=== PATIENT | female | born 1940 | race Caucasian/White ===

== ENCOUNTER 2019-06-21 20:42 | Inpatient (IN) ==
[2019-06-21] MEDS ORDERED: ACETAMINOPHEN 1,000 MG/100 ML VIAL IV STA (21:10)
[2019-06-21] MEDS ORDERED: ALBUT/IPRATROP 3MG/0.5MG NEB 3 ML VIAL NEB ONE (21:10)
[2019-06-21] MEDS ORDERED: SODIUM CHLORIDE 0.9% 1000ML 1,000 ML IV ONE ×2 (21:10→23:54)
[2019-06-21] MEDS ORDERED: methylPREDNISolone 125 MG/2 ML VIAL IV STA (21:10)
[2019-06-21 21:18] LABS: Hematocrit (blood only) 38.3 % (37-47); Hemoglobin 13.1 g/dL (12.0-16.0); Mean Corpuscular Hemoglobin 32.6 pg (25-34); Mean Corpuscular Hgb Conc 34.2 g/dL (32-36); Mean Corpuscular Volume 95.3 fL (80-100); Mean Platelet Volume 12.8 fL (7.4-10.4); Platelet Count 153 K/uL (130-400); RDW Standard Deviation 52.8 fL (36.4-46.3); Red Blood Count 4.02 M/uL (4.2-5.4); White Blood Count 26.61 K/uL (4.8-10.8)
[2019-06-21 21:32] LABS: INR 1.2 (0.9-1.1); Partial Thromboplastin Ratio 1.3; Partial Thromboplastin Time 34.3 Seconds (21.0-31.0); Prothrombin Time 11.9 Seconds (9.0-12.0)
[2019-06-21 21:35] LABS: Appearance Urine Cloudy (Clear); Bilirubin Urine Negative (Negative); Blood Urine 3+ (Negative); Color Urine Yellow; Glucose Urine UA Trace (Negative); Ketones Urine Trace (Negative); Leukocyte Esterase Urine Negative (Negative); Nitrite Urine Negative (Negative); Protein Urine 3+ (Negative); Specific Gravity Urine >= 1.030 (1.000-1.030); Urobilinogen Urine Negative (Negative); pH Urine 5.5 (4.5-7.5)
--- NOTE | 2019-06-21 21:41 | XRay Report ---
XR chest 1V portable CLINICAL HISTORY: Sepsis dyspnea COMPARISON STUDY: 12/29/2017 FINDINGS: Mild emphysematous change. No focal infiltrate. Diaphragms are smooth. IMPRESSION: No acute process. The above report was generated using voice recognition software. It may contain grammatical, syntax or spelling errors. Electronically signed by: Orion Holman M.D. 06/21/2019 9:40 PM
[2019-06-21 21:42] LABS: Base Excess VBG 0.6 mEq/L; HCO3 VBG 26 mmol/L; PCO2 VBG 42 mmHg (38-50); PO2 VBG 28 mmHg
[2019-06-21 21:43] LABS: Bacteria Urine 1+ (Negative); Hyaline Casts Urine 0-5 /lpf (0-5); RBC Urine 0-4 /hpf (0-4)
[2019-06-21 21:44] LABS: Oxygen Saturation VBG < 60.0 %
[2019-06-21 21:45] LABS: Alanine Aminotransferase 442 U/L (12-78); Albumin Level 3.2 gm/dl (3.4-5.0); Aspartate Aminotransferase 430 U/L (15-37); BUN Creatinine Ratio 28.3 (10-20); Blood Urea Nitrogen 35 mg/dl (7-18); Calcium 9.3 mg/dl (8.5-10.1); Carbon Dioxide 24 mmol/L (21-32); Chloride 99 mmol/L (98-107); Creatinine Clr Calc Pharmacy 28.6 ml/min; Est GFR (African American) 47.5; Glucose 158 mg/dl (70-99); Magnesium 2.3 mg/dl (1.8-2.4); Potassium 4.4 mmol/L (3.5-5.1); Sodium 133 mmol/L (136-145)
[2019-06-21 21:51] LABS: Albumin Globulin Ratio 0.7 (0.9-2); Alkaline Phosphatase 107 U/L (45-117); Bilirubin,Total 0.8 mg/dl (0.2-1); Globulin 4.6 gm/dl (2.5-4.0); NT Pro B Type Natriuretic Pept 4796 pg/ml (0-1800); Phosphorus 1.7 mg/dl (2.5-4.9); Total Protein 7.8 gm/dl (6.4-8.2); Troponin I < 0.015 ng/ml (0-0.045)
[2019-06-21] MEDS ORDERED: PIPERACILL/TAZOBAC CONSULT ACTIVE PRN (22:02)
[2019-06-21] MEDS ORDERED: VANCOMYCIN CONSULT ACTIVE PRN (22:02)
[2019-06-21] MEDS ORDERED: PIPERACILLIN/TAZOBACTAM 4.5 GM/120 ML BAG IV ONE (22:02)
[2019-06-21] MEDS ORDERED: VANCOMYCIN HCL 1,250 MG in SODIUM CHLORIDE 0.9% 500 ML IV ONE (22:02)
[2019-06-21] MEDS ORDERED: POTASSIUM PHOS 3 MMOL/1 ML INFUSION IV STA (22:05)
[2019-06-21 22:13] LABS: Basophils # (auto) 0.02 K/uL (0-0.2); Basophils % (auto) 0.1 %; Echinocytes 1+; Eosinophils # (auto) 0.01 K/uL (0-0.5); Immature Granulocytes # (auto) 0.49 K/uL (0.00-0.02); Immature Granulocytes % (auto) 1.8 %; Lymphocytes # (auto) 0.52 K/uL (1.2-3.4); Monocytes # (auto) 2.41 K/uL (0.11-0.59); Monocytes % (auto) 9.1 %; Neutrophils # (auto) 23.16 K/uL (1.4-6.5)
[2019-06-21] MEDS ORDERED: POTASSIUM PHOSPHATE 9 MMOL in SODIUM CHLORIDE 0.9% 250 ML IV ONE (22:30)
[2019-06-21] MEDS ORDERED: OPTIRAY 320 125ml IV PRN (23:01)
[2019-06-21 23:08] LABS: Influenza A virus by PCR Neg for Influ A (Neg); Influenza B virus by PCR Neg for Influ B (Neg)
[2019-06-21] MEDS ORDERED: METOPROLOL TARTRATE 1 MG/ML VIAL IV STA (23:33)
--- NOTE | 2019-06-22 | Emergency Department Note ---
Entered by Mattie Myafield acting as a scribe for History of Present Illness General Chief complaint: Weakness Stated complaint: WEAKNESS Time Seen by Provider: 06/21/19 20:51 History of Present Illness Provider complaint: weakness Onset (ago): day(s) 2 Pain Consistency: + other (episode) Quality: + other (weakness) Relieved By: + none Associated symptoms: + denies other symptoms (trauma, vomiting, tobacco use), + fever/chills, + loss of appetite and + other (nausea, dizziness, took a nap which is abnormal for her, history of asthma) The patient is an 79 year old female who presents to the ED with complaints of an episode of weakness that started 2 days ago. The patient states that she has a fever, nausea and dizziness. The patient states that she has had a loss of appetite which is abnormal for her. The patient states that nothing is helping to relieve her symptoms. Per significant other, the patient took a nap today which is extremely unusual for her. The patient states that she has a history of asthma. The patient denies trauma, vomiting and tobacco use. Home Medications Home Medications Medication Instructions Recorded Confirmed Type albuterol sulfate [Ventolin HFA] 2 puff INHALATION Q4H PRN 06/21/19 06/21/19 History aspirin 81 mg PO DAILY 06/21/19 06/21/19 History atorvastatin 40 mg PO QAM 06/21/19 06/21/19 History calcium carbonate-vitamin D3 1 tab PO DAILY 06/21/19 06/21/19 History [Calcium 600 + D(3)] cholecalciferol (vitamin D3) 2,000 unit PO DAILY 06/21/19 06/21/19 History [Vitamin D3] diltiazem HCl 120 mg PO QAM 06/21/19 06/21/19 History fluticasone propion-salmeterol 1 inh INHALATION BID 06/21/19 06/21/19 History [Advair Diskus] fluticasone propionate [Flonase 2 spray INTRANASAL DAILY 06/21/19 06/21/19 History Allergy Relief] ipratropium-albuterol [Combivent 1 puff INHALATION QID 06/21/19 06/21/19 History Respimat] metoprolol succinate 50 mg PO DAILY 06/21/19 06/21/19 History montelukast 10 mg PO QAM 06/21/19 06/21/19 History nitroglycerin [Nitrostat] 0.4 mg SUBLINGUAL DIRECTED PRN 06/21/19 06/21/19 History tramadol 100 mg PO Q8H PRN 06/21/19 06/21/19 History Allergies Allergy/AdvReac Type Severity Reaction Status Date / Time No Known Allergies Allergy Verified 06/21/19 22:20 Past Med/Surg History Medical History Asthma Chest pain NSTEMI (non-ST elevated myocardial infarction) Surgical History Hx of heart artery stent Family History Other Family history non-contributory Social History Feels Safe at Home: Yes Smoking Status: Former smoker Review of Systems See HPI for pertinent positives & negatives. and A total of 10 systems reviewed and were otherwise negative Physical Exam Vital Signs Vital Signs - 24 hr 06/21/19 20:47 06/21/19 20:49 06/21/19 21:09 Temperature 38.9 C H Temperature Source Oral Pulse Rate 108 H 108 H Pulse Rate [Right Finger] Pulse Rate from SpO2 Sensor 108 H Respiratory Rate 26 H 30 H Respiratory Effort / Characteristics Non-Labored Spontaneous Respiratory Depth Normal Respiratory Pattern Regular Blood Pressure 129/79 129/79 Blood Pressure Mean 95 89 Pulse Oximetry 92 96 84 L Oxygen Delivery Method Room Air Room Air Nasal Cannula Oxygen Flow Rate 0 Sepsis Recent Fever Within 48 Hours Yes Sepsis New/Unexplained Change in Mental Status No Sepsis Action Taken by Nursing Physician Notified Oxygen Flow Rate - Titration 2 Fraction of Inspired Oxygen - Titration 95 06/21/19 21:17 06/21/19 21:25 06/21/19 21:48 Temperature Temperature Source Pulse Rate 107 H Pulse Rate [Right Finger] 102 H Pulse Rate from SpO2 Sensor 107 H Respiratory Rate 19 24 Respiratory Effort / Characteristics Non-Labored Spontaneous Respiratory Depth Respiratory Pattern Blood Pressure 122/81 Blood Pressure Mean 91 Pulse Oximetry 95 96 98 Oxygen Delivery Method Nasal Cannula Nasal Cannula Nebulizer Oxygen Flow Rate 2 2 Sepsis Recent Fever Within 48 Hours Sepsis New/Unexplained Change in Mental Status Sepsis Action Taken by Nursing Oxygen Flow Rate - Titration Fraction of Inspired Oxygen - Titration 06/21/19 22:00 06/21/19 22:30 06/21/19 23:08 Temperature Temperature Source Pulse Rate 106 H 114 H 116 H Pulse Rate [Right Finger] Pulse Rate from SpO2 Sensor 107 H 114 H 115 H Respiratory Rate 32 H 35 H 34 H Respiratory Effort / Characteristics Respiratory Depth Respiratory Pattern Blood Pressure 121/74 125/61 101/54 L Blood Pressure Mean 87 76 79 Pulse Oximetry 99 98 97 Oxygen Delivery Method Nebulizer Nebulizer Nasal Cannula Oxygen Flow Rate 2 Sepsis Recent Fever Within 48 Hours Sepsis New/Unexplained Change in Mental Status Sepsis Action Taken by Nursing Oxygen Flow Rate - Titration Fraction of Inspired Oxygen - Titration 06/21/19 23:25 06/21/19 23:30 06/21/19 23:55 Temperature 37.1 C Temperature Source Oral Pulse Rate 140 H 144 H Pulse Rate [Right Finger] 141 H Pulse Rate from SpO2 Sensor 140 H Respiratory Rate 30 H 18 Respiratory Effort / Characteristics Respiratory Depth Respiratory Pattern Blood Pressure 105/62 105/62 Blood Pressure Mean 74 Pulse Oximetry 97 97 Oxygen Delivery Method Nasal Cannula Nasal Cannula Oxygen Flow Rate 3 3 Sepsis Recent Fever Within 48 Hours Sepsis New/Unexplained Change in Mental Status Sepsis Action Taken by Nursing Oxygen Flow Rate - Titration Fraction of Inspired Oxygen - Titration 06/22/19 00:00 06/22/19 00:21 Temperature Temperature Source Pulse Rate 143 H 128 H Pulse Rate [Right Finger] Pulse Rate from SpO2 Sensor 144 H Respiratory Rate 25 H Respiratory Effort / Characteristics Respiratory Depth Respiratory Pattern Blood Pressure 88/58 L Blood Pressure Mean 66 Pulse Oximetry 96 Oxygen Delivery Method Nasal Cannula Oxygen Flow Rate 3 Sepsis Recent Fever Within 48 Hours Sepsis New/Unexplained Change in Mental Status Sepsis Action Taken by Nursing Oxygen Flow Rate - Titration Fraction of Inspired Oxygen - Titration GENERAL: Awake, alert, ill-appearing, in no distress HENT: Normocephalic, atraumatic. Oropharynx with mucous membranes dry and cracked. EYES: Normal conjunctiva. Sclera non-icteric. NECK: Supple. No nuchal rigidity. FROM. No JVD. RESPIRATORY: Diffuse wheezes throughout. CARDIAC: Tachycardic rate, normal rhythm. Extremities warm and well perfused. Pulses equal. ABDOMEN: Soft, non-distended. No tenderness to palpation. No rebound or guarding. No masses. RECTAL: Deferred. MUSCULOSKELETAL: Chest examination reveals no tenderness. The back is symmetrical on inspection without obvious abnormality. There is no CVA tenderness to palpation. No joint edema. LOWER EXTREMITIES: Calves are equal size bilaterally and non-tender. No edema. No discoloration. NEURO: Normal sensorium. No sensory or motor deficits noted. SKIN: No rash or jaundice noted. Course Course 2106: Past medical records reviewed. The patient was evaluated in room B10. A complete history and physical exam was performed. 2239: I reevaluated the patient and she is feeling better. 2351: I discussed the patient's case with Dr. Jt Velásquez, Hospitalist. He will evaluate the patient for further management. Continuous Cardiac Monitoring: Indication: Sepsis Rhythm: Sinus tachycardia converting to Atrial fibrillation with RVR Rate: 108 to 140 Other: 96% on 3L NC. Consultations Consultation #1: I discussed the patient's case with Dr. Jt Velásquez, Hospitalist. He will evaluate the patient for further management. Time: 23:52 Administered Medications Sodium Chloride (Nss 1000ml) 1,000 mls @ 999 mls/hr IV .Q1H1M ONE Stop: 06/22/19 00:54 Last Admin: 06/22/19 00:04 Dose: 999 mls/hr Documented by: [id number] Sodium Chloride (Nss) 500 mls @ 999 mls/hr IV .Q31M ONE Stop: 06/22/19 00:47 Last Admin: 06/22/19 00:26 Dose: Not Given Documented by: [id number] Ioversol (Optiray 320 125ml) 125 ml IV ONCE PRN PRN Reason: Interaction Checking Stop: 06/25/19 23:00 Last Admin: 06/21/19 23:01 Dose: 118 ml Documented by: [id number] Discontinued Medications Albuterol (Duoneb) 12 ml NEB ONE ONE Stop: 06/21/19 21:11 Last Admin: 06/21/19 21:23 Dose: 12 ml Documented by: [id number] Sodium Chloride (Nss 1000ml) 1,000 mls @ 999 mls/hr IV .Q1H1M ONE Stop: 06/21/19 22:10 Last Infusion: 06/21/19 23:47 Dose: 0 mls/hr Documented by: [id number] Admin: 06/21/19 21:48 Dose: 999 mls/hr Documented by: [id number] Acetaminophen (Ofirmev) 1,000 mg in 100 mls @ 400 mls/hr IV NOW STA Stop: 06/21/19 21:24 Last Infusion: 06/21/19 22:07 Dose: 0 mls/hr Documented by: [id number] Admin: 06/21/19 21:52 Dose: 400 mls/hr Documented by: [id number] Piperacillin Sod/Tazobactam Sod (Zosyn) 4.5 gm in 120 mls @ 240 mls/hr IV NOW ONE Stop: 06/21/19 22:31 Last Infusion: 06/21/19 23:24 Dose: 0 mls/hr Documented by: [id number] Admin: 06/21/19 22:26 Dose: 240 mls/hr Documented by: [id number] Vancomycin HCl 1,250 mg/ (Sodium Chloride) 525 mls @ 200 mls/hr IV NOW ONE Stop: 06/22/19 00:39 Last Admin: 06/21/19 23:24 Dose: 200 mls/hr Documented by: [id number] Potassium Phosphate 9 mmol/ (Sodium Chloride) 253 mls @ 169 mls/hr IV ONE ONE Stop: 06/21/19 23:59 Last Admin: 06/21/19 23:24 Dose: 87 mls/hr Documented by: [id number] Digoxin 250 mcg/ Syringe 10 mls @ 2 mls/min IV ONE ONE Stop: 06/22/19 00:19 Last Admin: 06/22/19 00:21 Dose: 2 mls/min Documented by: [id number] Methylprednisolone (Solumedrol) 125 mg IV NOW STA Stop: 06/21/19 21:11 Last Admin: 06/21/19 21:50 Dose: 125 mg Documented by: [id number] Metoprolol Tartrate (Lopressor) 5 mg IV NOW STA Stop: 06/21/19 23:34 Last Admin: 06/21/19 23:55 Dose: 5 mg Documented by: [id number] Tramadol HCl (Ultram) 25 mg PO NOW STA Stop: 06/22/19 00:13 Last Admin: 06/22/19 00:21 Dose: 25 mg Documented by: [id number] Critical Care Time Critical Care Time: Yes Total Critical Care Time: 105 I have personally spent greater than 105 minutes of critical care time in the direct management of this patient. This includes bedside care, interpretation of diagnostic studies, and testing, discussion with consultants, patient, and family members, and other required patient management activities. This 105 minutes is in excess of all separately billable procedures. Medical Decision Making Differential Diagnosis Differential diagnosis: Etiologies such as viral syndrome, otitis, pharyngitis, pneumonia, influenza, meningitis, urinary tract infection, septic arthritis, soft tissue infectious process, intra-abdominal process, sepsis, bacteremia, as well as others were entertained. Medical Records Attestation: I reviewed the patient's medical records. Home Medications Current Medication List: was personally reviewed by wa Laboratory Data Attestation: I reviewed the patient's lab results. Result diagrams: 06/21/19 20:35 06/21/19 20:35 Lab Results 06/21/19 06/21/19 06/21/19 Range/Units 20:35 20:35 20:35 WBC 26.61 H (4.8-10.8) K/uL RBC 4.02 L (4.2-5.4) M/uL Hgb 13.1 (12.0-16.0) g/dL Hct 38.3 (37-47) % MCV 95.3 (80-100) fL MCH 32.6 (25-34) pg MCHC 34.2 (32-36) g/dL RDW Std Deviation 52.8 H (36.4-46.3) fL RDW Coeff of Gillian 15.0 H (11.5-14.5) % Plt Count 153 (130-400) K/uL MPV 12.8 H (7.4-10.4) fL Immature Gran % (Auto) 1.8 % Neut % (Auto) 87.0 % Lymph % (Auto) 2.0 % [place] % (Auto) 9.1 % Eos % (Auto) 0.0 % Baso % (Auto) 0.1 % Immature Gran # (Auto) 0.49 H (0.00-0.02) K/uL Neut # (Auto) 23.16 H (1.4-6.5) K/uL Lymph # (Auto) 0.52 L (1.2-3.4) K/uL [place] # (Auto) 2.41 H (0.11-0.59) K/uL Eos # (Auto) 0.01 (0-0.5) K/uL Baso # (Auto) 0.02 (0-0.2) K/uL Echinocytes 1+ PT 11.9 (9.0-12.0) Seconds INR 1.2 H (0.9-1.1) APTT 34.3 H (21.0-31.0) Seconds PTT Ratio 1.3 VBG pH (7.36-7.41) VBG pCO2 (38-50) mmHg VBG pO2 mmHg VBG HCO3 mmol/L VBG O2 Saturation % VBG Base Excess mEq/L Barometric Pressure mm/Hg Sodium 133 L (136-145) mmol/L Potassium 4.4 (3.5-5.1) mmol/L Chloride 99 (98-107) mmol/L Carbon Dioxide 24 (21-32) mmol/L Anion Gap 9.0 (3-11) BUN 35 H (7-18) mg/dl Creatinine 1.24 H (0.6-1.2) mg/dl Est Cr Clr Drug Dosing 28.6 ml/min Est GFR ( Amer) 47.5 Est GFR (Non-Af Amer) 41.0 BUN/Creatinine Ratio 28.3 H (10-20) Glucose 158 H (70-99) mg/dl Lactate (0.4-2.0) mmol/L Calcium 9.3 (8.5-10.1) mg/dl Phosphorus 1.7 L (2.5-4.9) mg/dl Magnesium 2.3 (1.8-2.4) mg/dl Total Bilirubin 0.8 (0.2-1) mg/dl AST 430 H (15-37) U/L ALT 442 H (12-78) U/L Alkaline Phosphatase 107 (45-117) U/L Troponin I < 0.015 (0-0.045) ng/ml NT-Pro-B Natriuret Pep 4796 H (0-1800) pg/ml Total Protein 7.8 (6.4-8.2) gm/dl Albumin 3.2 L (3.4-5.0) gm/dl Globulin 4.6 H (2.5-4.0) gm/dl Albumin/Globulin Ratio 0.7 L (0.9-2) TSH 0.401 (0.300-4.500) uIu/ml Urine Color Urine Appearance (Clear) Urine pH (4.5-7.5) Ur Specific Colp (1.000-1.030) Urine Protein (Negative) Urine Glucose (UA) (Negative) Urine Ketones (Negative) Urine Blood (Negative) Urine Nitrite (Negative) Urine Bilirubin (Negative) Urine Urobilinogen (Negative) Ur Leukocyte Esterase (Negative) Urine RBC (0-4) /hpf Urine WBC (0-5) /hpf Ur Epithelial Cells (0-5) /lpf Urine Bacteria (Negative) Hyaline Casts (0-5) /lpf Granular Casts (0) /lpf Influenza Type A (PCR) (Neg) Influenza Type B (PCR) (Neg) 06/21/19 06/21/19 06/21/19 Range/Units 21:12 21:31 21:31 WBC (4.8-10.8) K/uL RBC (4.2-5.4) M/uL Hgb (12.0-16.0) g/dL Hct (37-47) % MCV (80-100) fL MCH (25-34) pg MCHC (32-36) g/dL RDW Std Deviation (36.4-46.3) fL RDW Coeff of Gillian (11.5-14.5) % Plt Count (130-400) K/uL MPV (7.4-10.4) fL Immature Gran % (Auto) % Neut % (Auto) % Lymph % (Auto) % [place] % (Auto) % Eos % (Auto) % Baso % (Auto) % Immature Gran # (Auto) (0.00-0.02) K/uL Neut # (Auto) (1.4-6.5) K/uL Lymph # (Auto) (1.2-3.4) K/uL [place] # (Auto) (0.11-0.59) K/uL Eos # (Auto) (0-0.5) K/uL Baso # (Auto) (0-0.2) K/uL Echinocytes PT (9.0-12.0) Seconds INR (0.9-1.1) APTT (21.0-31.0) Seconds PTT Ratio VBG pH 7.40 (7.36-7.41) VBG pCO2 42 (38-50) mmHg VBG pO2 28 mmHg VBG HCO3 26 mmol/L VBG O2 Saturation < 60.0 % VBG Base Excess 0.6 mEq/L Barometric Pressure 737.0 mm/Hg Sodium (136-145) mmol/L Potassium (3.5-5.1) mmol/L Chloride (98-107) mmol/L Carbon Dioxide (21-32) mmol/L Anion Gap (3-11) BUN (7-18) mg/dl Creatinine (0.6-1.2) mg/dl Est Cr Clr Drug Dosing ml/min Est GFR ( Amer) Est GFR (Non-Af Amer) BUN/Creatinine Ratio (10-20) Glucose (70-99) mg/dl Lactate 2.6 H* (0.4-2.0) mmol/L Calcium (8.5-10.1) mg/dl Phosphorus (2.5-4.9) mg/dl Magnesium (1.8-2.4) mg/dl Total Bilirubin (0.2-1) mg/dl AST (15-37) U/L ALT (12-78) U/L Alkaline Phosphatase (45-117) U/L Troponin I (0-0.045) ng/ml NT-Pro-B Natriuret Pep (0-1800) pg/ml Total Protein (6.4-8.2) gm/dl Albumin (3.4-5.0) gm/dl Globulin (2.5-4.0) gm/dl Albumin/Globulin Ratio (0.9-2) TSH (0.300-4.500) uIu/ml Urine Color Yellow Urine Appearance Cloudy A (Clear) Urine pH 5.5 (4.5-7.5) Ur Specific Colp >= 1.030 (1.000-1.030) Urine Protein 3+ H (Negative) Urine Glucose (UA) Trace H (Negative) Urine Ketones Trace H (Negative) Urine Blood 3+ H (Negative) Urine Nitrite Negative (Negative) Urine Bilirubin Negative (Negative) Urine Urobilinogen Negative (Negative) Ur Leukocyte Esterase Negative (Negative) Urine RBC 0-4 (0-4) /hpf Urine WBC 5-10 H (0-5) /hpf Ur Epithelial Cells 5-10 H (0-5) /lpf Urine Bacteria 1+ H (Negative) Hyaline Casts 0-5 (0-5) /lpf Granular Casts 10-20 H (0) /lpf Influenza Type A (PCR) (Neg) Influenza Type B (PCR) (Neg) 06/21/19 06/21/19 Range/Units 22:26 23:18 WBC (4.8-10.8) K/uL RBC (4.2-5.4) M/uL Hgb (12.0-16.0) g/dL Hct (37-47) % MCV (80-100) fL MCH (25-34) pg MCHC (32-36) g/dL RDW Std Deviation (36.4-46.3) fL RDW Coeff of Gillian (11.5-14.5) % Plt Count (130-400) K/uL MPV (7.4-10.4) fL Immature Gran % (Auto) % Neut % (Auto) % Lymph % (Auto) % [place] % (Auto) % Eos % (Auto) % Baso % (Auto) % Immature Gran # (Auto) (0.00-0.02) K/uL Neut # (Auto) (1.4-6.5) K/uL Lymph # (Auto) (1.2-3.4) K/uL [place] # (Auto) (0.11-0.59) K/uL Eos # (Auto) (0-0.5) K/uL Baso # (Auto) (0-0.2) K/uL Echinocytes PT (9.0-12.0) Seconds INR (0.9-1.1) APTT (21.0-31.0) Seconds PTT Ratio VBG pH (7.36-7.41) VBG pCO2 (38-50) mmHg VBG pO2 mmHg VBG HCO3 mmol/L VBG O2 Saturation % VBG Base Excess mEq/L Barometric Pressure mm/Hg Sodium (136-145) mmol/L Potassium (3.5-5.1) mmol/L Chloride (98-107) mmol/L Carbon Dioxide (21-32) mmol/L Anion Gap (3-11) BUN (7-18) mg/dl Creatinine (0.6-1.2) mg/dl Est Cr Clr Drug Dosing ml/min Est GFR ( Amer) Est GFR (Non-Af Amer) BUN/Creatinine Ratio (10-20) Glucose (70-99) mg/dl Lactate 4.0 H* (0.4-2.0) mmol/L Calcium (8.5-10.1) mg/dl Phosphorus (2.5-4.9) mg/dl Magnesium (1.8-2.4) mg/dl Total Bilirubin (0.2-1) mg/dl AST (15-37) U/L ALT (12-78) U/L Alkaline Phosphatase (45-117) U/L Troponin I (0-0.045) ng/ml NT-Pro-B Natriuret Pep (0-1800) pg/ml Total Protein (6.4-8.2) gm/dl Albumin (3.4-5.0) gm/dl Globulin (2.5-4.0) gm/dl Albumin/Globulin Ratio (0.9-2) TSH (0.300-4.500) uIu/ml Urine Color Urine Appearance (Clear) Urine pH (4.5-7.5) Ur Specific Colp (1.000-1.030) Urine Protein (Negative) Urine Glucose (UA) (Negative) Urine Ketones (Negative) Urine Blood (Negative) Urine Nitrite (Negative) Urine Bilirubin (Negative) Urine Urobilinogen (Negative) Ur Leukocyte Esterase (Negative) Urine RBC (0-4) /hpf Urine WBC (0-5) /hpf Ur Epithelial Cells (0-5) /lpf Urine Bacteria (Negative) Hyaline Casts (0-5) /lpf Granular Casts (0) /lpf Influenza Type A (PCR) Neg for Influ A (Neg) Influenza Type B (PCR) Neg for Influ B (Neg) Imaging Data Radiologist's Impression: Radiology results as stated below per my review and the radiologist's interpretation: XR chest 1V portable CLINICAL HISTORY: Sepsis dyspnea COMPARISON STUDY: 12/29/2017 FINDINGS: Mild emphysematous change. No focal infiltrate. Diaphragms are smooth. IMPRESSION: No acute process. The above report was generated using voice recognition software. It may contain grammatical, syntax or spelling errors. Electronically signed by: Orion Holman M.D. 06/21/2019 9:40 PM -------- [facility] Preliminary Findings Only See Final Report For Complete Findings CTA CHEST: No evidence of PE. Lungs are clear. Centrilobular emphysema, worse at the upper lungs. Exophytic Incompletely imaged left renal cyst. Small hiatal hernia. No pleural effusions. No adenopathy. Heart size is normal. Aorta is unremarkable. Radiologist: Dipak Diaz M.D. Study ready at 23:04 and initial results transmitted at 23:24 Preliminary Findings Only See Final Report For Complete Findings CT ABDOMEN & PELVIS With Contrast: 5.3 cm cyst arising from the upper pole of the left kidney. A few smaller right renal cysts are also seen. No obstructive uropathy. Multiseptated hypodense lesion concerning for neoplasm at the inferior aspect of the right lobe of liver. This measures 10.6 x 6.9 cm. Distal colonic diverticulosis without acute diverticulitis. No colitis or appendicitis or bowel obstruction. Small hiatal hernia. Radiologist: Dipak Diaz M.D. Study ready at 23:08 and initial results transmitted at 23:30 ECG Data Attestation: I personally reviewed and interpreted this ECG as follows: Indication: + weakness Rate (beats per minute): 109 Rhythm: + sinus tachycardia ECG Intervals/blocks: + First degree AV block ECG [place]: + Normal ECG ST segments: + Normal ST segments ECG Findings: + Other (QTC 412) Additional Comments: REPEAT EKG: Rate: 136 Rhythm: Afib RVR Findings: Normal axis, no acute ischemia, no ectopy, QTC 478 Blood Pressure Blood Pressure Findings: Low blood pressure Blood Pressure Disposition: further management by hospitalist [facility] Narrative The patient is a pleasant 79-year-old woman who presents emergency department with generalized weakness, cough congestion and wheezing over the past several days per hpi. On arrival the patient is fatigued appearing, febrile to 38.9 wit h heart rate in the 110s and vital signs otherwise stable. Patient is mildly dyspneic. She has no focal neuro deficits. EKG without overt acute ischemia. Chest x-ray negative for focal infiltrates. WBC however is elevated at 26K. H/H and platelets wnl. Lactate also elevated at 2.6. Chemistry without acidosis. Creatinine 1.2 slightly increased from recent. Phosphorus 1.7 with repletion provided. LFTs are newly elevated as well. UA suspicious for infection. Troponin negative. BNP 4700 likely related to patient's paroxysmal A. fib. During the emergency department observation the patient did develop A. fib with RVR which was subsequently treated with IV Lopressor with improvement from 150s to 130s. Review patient's prior admissions does show the patient has a history of this.. Given the patient's fever and leukocytosis she was treated with f broad-spectrum antibiotics Zosyn and vancomycin. Per preliminary [facility] read, CT of the chest was negative for PE or pneumonia. CT abdomen pelvis was performed and demonstrates possible neoplasm of the liver. Otherwise no evidence of infection. Case was discussed with Dr. Soares, [facility] hospitalist, who will evaluate the patient for admission. Impression & Plan Sepsis, Acute UTI, Asthma exacerbation, Hypophosphatemia, Leukocytosis, Elevated lactic acid level, Atrial fibrillation with RVR Discharge Plan Visit Data Chief Complaint: Weakness Stated Complaint: WEAKNESS ED Provider: Santosh Silva Discharge Problem: Sepsis, Acute UTI, Asthma exacerbation, Hypophosphatemia, Leukocytosis, Elevated lactic acid level, Atrial fibrillation with RVR Patient Disposition: Being Evaluated by Hospitalist Forms Stand Alone Forms: On License Of [facility] Prescriptions Prescriptions: No Action atorvastatin 40 mg Tablet 40 mg PO QAM RF: 0 metoprolol succinate 50 mg Tablet Extended Release 24 Hr 50 mg PO DAILY RF: 0 tramadol 50 mg tablet 100 mg PO Q8H PRN (Reason: Pain) RF: 0 diltiazem HCl 120 mg Capsule,Extended Release 24 Hr 120 mg PO QAM RF: 0 nitroglycerin [Nitrostat] 0.4 mg Tablet, Sublingual 0.4 mg sublingual DIRECTED PRN (Reason: Chest Pain) RF: 0 montelukast 10 mg tablet 10 mg PO QAM RF: 0 albuterol sulfate [Ventolin HFA] 90 mcg/actuation Hfa Aerosol Inhaler 2 puff INHALATION Q4H PRN (Reason: Wheezing) RF: 0 calcium carbonate-vitamin D3 [Calcium 600 + D(3)] 600 mg(1,500mg) -200 unit Tablet 1 tab PO DAILY RF: 0 aspirin 81 mg Tablet,Delayed Release (Dr/Ec) 81 mg PO DAILY RF: 0 fluticasone propion-salmeterol [Advair Diskus] 500-50 mcg/dose Blister With Device 1 inh INHALATION BID RF: 0 fluticasone propionate [Flonase Allergy Relief] 50 mcg/actuation [place],Suspension 2 spray INTRANASAL DAILY RF: 0 cholecalciferol (vitamin D3) [Vitamin D3] 2,000 unit Tablet 2,000 unit PO DAILY RF: 0 Combivent Respimat 20-100 mcg/actuation Mist 1 puff INHALATION QID RF: 0 Referrals Referrals: Anat Bangura, DO [Primary Care Provider] - Discharge Problem: Sepsis Qualifiers: Sepsis type: sepsis due to unspecified organism Sepsis acute organ dysfunction status: unspecified Qualified Code(s): A41.9 - Sepsis, unspecified organism The scribe's documentation has been prepared under my direction and personally reviewed by me in its entirety. I confirm that the note above accurately reflects all work, treatment, procedures, and medical decision making performed by me.
[2019-06-22] MEDS ORDERED: TRAMADOL HCL 50 MG TABLET PO STA (00:12)
[2019-06-22] MEDS ORDERED: DIGOXIN 250 MCG in SYRINGE 9 ML IV ONE ×2 (00:15→03:15)
[2019-06-22] MEDS ORDERED: SODIUM CHLORIDE 0.9% 500 ML IV ONE (00:17)
[2019-06-22 00:31] LABS: Thyroid Stimulating Hormone 0.401 uIu/ml (0.300-4.500)
[2019-06-22] MEDS: LACTATED RINGER'S 1,000 ML IV SCH ×3 (01:09→10:55)
[2019-06-22] MEDS ORDERED: dilTIAZem ER 120 MG CAPCR PO SCH (01:30)
[2019-06-22] MEDS ORDERED: Heparin IV Standard *NO* Bolus STA (01:43)
--- NOTE | 2019-06-22 01:43 | History & Physical Report ---
Date of Service June 22, 2019 Assessment & Plan (1) Severe sepsis: SIRS plus ARF plus lactic acid elevation Secondary to complicated UTI Hypoxemic respiratory failure History asthma/COPD noted on outpatient PFTs as per records Past tobacco abuse Patient denies S OB symptoms. Recurrent A. fib secondary to sepsis hx CAD status post stent hypertension, BP on the lower side prediabetes as per records, hemoglobin A1c noted to be 5.7 last May 2019 Incidental findings of left renal cyst and liver tumors on initial CT read PCU Cultures, IV Zosyn IVF, follow lactic acid Facilitate home beta-dav, cardizem Rx, may need titration Digoxin as needed for uncontrolled A. fib given borderline BP interim IV heparin for thromboembolic prophylaxis for recurrent AF TTE, Cardiology consult RE recurrent AF Follow official CT abdomen pelvis read. Outpatient subspecialty consultation for abnormal findings pending official CT abdomen pelvis read. Hold home diuretic until euvolemic and creatinine at baseline DVT prophylaxis. Heparin Full code History of Present Illness Chief Complaint: Weakness Primary Care Provider: Anat Bangura, History obtained from patient and records. Medical history significant for CAD status post stent, PAF as per records, asthma/COPD as per records, past tobacco abuse, hypertension, hyperlipidemia, cervical dysplasia as per records, prediabetes as per records. Recent confinement December 2017 for NSTEMI. CHINO placed for LAD and RCA disease. Patient developed pericarditis/pericardial effusion and atrial fibrillation during confinement. Anticoagulation precluded for AF by pericardial effusion as per records. About 10 days history of increased generalized weakness, poor appetite. Patient noted to be slow moving and weak as per mill recorder. Patient denies chest pain, S OB, cough, abdominal pain, diarrhea, dysuria symptoms. Patient noted to be tachycardic by EMS. IV Vancomycin and Zosyn given at the ER for sepsis. Patient went into rapid A. fib at the ER. Medical History as above Surgical History : Gynecologic procedures, BTL, cataract surgery, robotic laparoscopic VEENA BSO Family History : Breast cancer, dementia Personal/Social history : Past tobacco abuse, occasional EtOH intake, retired real estate sales manager Allergies Allergy/AdvReac Type Severity Reaction Status Date / Time No Known Allergies Allergy Verified 06/21/19 22:20 Home Medications Home Medications Medication Instructions Recorded Confirmed Type albuterol sulfate [Ventolin HFA] 2 puff INHALATION Q4H PRN 06/21/19 06/21/19 History aspirin 81 mg PO DAILY 06/21/19 06/21/19 History atorvastatin 40 mg PO QAM 06/21/19 06/21/19 History calcium carbonate-vitamin D3 1 tab PO DAILY 06/21/19 06/21/19 History [Calcium 600 + D(3)] cholecalciferol (vitamin D3) 2,000 unit PO DAILY 06/21/19 06/21/19 History [Vitamin D3] diltiazem HCl 120 mg PO QAM 06/21/19 06/21/19 History fluticasone propion-salmeterol 1 inh INHALATION BID 06/21/19 06/21/19 History [Advair Diskus] fluticasone propionate [Flonase 2 spray INTRANASAL DAILY 06/21/19 06/21/19 History Allergy Relief] ipratropium-albuterol [Combivent 1 puff INHALATION QID 06/21/19 06/21/19 History Respimat] metoprolol succinate 50 mg PO DAILY 06/21/19 06/21/19 History montelukast 10 mg PO QAM 06/21/19 06/21/19 History nitroglycerin [Nitrostat] 0.4 mg SUBLINGUAL DIRECTED PRN 06/21/19 06/21/19 History tramadol 100 mg PO Q8H PRN 06/21/19 06/21/19 History Past Med/Surg History Medical History Asthma Chest pain NSTEMI (non-ST elevated myocardial infarction) Surgical History Hx of heart artery stent Family History Other Family history non-contributory Social History Preferred Language: Turkish Beliefs That Will Affect Care: None Current Living Situation: Alone Feels Safe at Home: Yes Safety Concerns: Feels Safe At This Time Smoking Status: Never smoker Hx Alcohol Use: Yes Alcohol type: wine Hx Substance Use: No Review of Systems Review of Systems: As per HPI, all 10 systems reviewed, all other ROS negative Physical Exam Physical Exam: GENERAL: Slightly uncomfortable, looks younger for stated age, no respiratory distress SKIN: Normal color, warm HEENT: [place] palpebral conjunctivae, no ptosis, dry buccal mucosa NECK : Supple, no tenderness CHEST : Decreased breath sounds, no tenderness HEART : Tachycardic, irregular , no obvious murmurs ABDOMEN: Some distention, nontender EXTREMITIES : No LE swelling/tenderness, no other conspicuous deformities noted NEUROLOGIC : Coherent, no facial asymmetry, no other gross focality Results & Data Vital Signs (Past 12 Hours) Vital Signs Temp Pulse Pulse Resp BP Pulse Ox 06/22/19 01:03 37.0 C 06/22/19 01:02 132 H 26 H 121/76 93 06/22/19 00:30 124 H 25 H 95/74 L 94 06/22/19 00:21 128 H 06/22/19 00:00 143 H 25 H 88/58 L 96 06/21/19 23:55 144 H 105/62 06/21/19 23:30 140 H 18 105/62 97 06/21/19 23:25 37.1 C 141 H 30 H 97 06/21/19 23:08 116 H 34 H 101/54 L 97 06/21/19 22:30 114 H 35 H 125/61 98 06/21/19 22:00 106 H 32 H 121/74 99 06/21/19 21:48 107 H 24 122/81 98 06/21/19 21:25 102 H 19 96 06/21/19 21:17 95 06/21/19 21:09 84 L 06/21/19 20:49 108 H 30 H 129/79 96 06/21/19 20:47 38.9 C H 108 H 26 H 129/79 92 Laboratory Results Laboratory Results WBC 26.61 K/uL (4.8-10.8) H 06/21/19 20:35 RBC 4.02 M/uL (4.2-5.4) L 06/21/19 20:35 Hgb 13.1 g/dL (12.0-16.0) 06/21/19 20:35 Hct 38.3 % (37-47) 06/21/19 20:35 MCV 95.3 fL (80-100) 06/21/19 20:35 MCH 32.6 pg (25-34) 06/21/19 20:35 MCHC 34.2 g/dL (32-36) 06/21/19 20:35 RDW Std Deviation 52.8 fL (36.4-46.3) H 06/21/19 20:35 RDW Coeff of Gillian 15.0 % (11.5-14.5) H 06/21/19 20:35 Plt Count 153 K/uL (130-400) 06/21/19 20:35 MPV 12.8 fL (7.4-10.4) H 06/21/19 20:35 Immature Gran % (Auto) 1.8 % 06/21/19 20:35 Neut % (Auto) 87.0 % 06/21/19 20:35 Lymph % (Auto) 2.0 % 06/21/19 20:35 [place] % (Auto) 9.1 % 06/21/19 20:35 Eos % (Auto) 0.0 % 06/21/19 20:35 Baso % (Auto) 0.1 % 06/21/19 20:35 Immature Gran # (Auto) 0.49 K/uL (0.00-0.02) H 06/21/19 20:35 Neut # (Auto) 23.16 K/uL (1.4-6.5) H 06/21/19 20:35 Lymph # (Auto) 0.52 K/uL (1.2-3.4) L 06/21/19 20:35 [place] # (Auto) 2.41 K/uL (0.11-0.59) H 06/21/19 20:35 Eos # (Auto) 0.01 K/uL (0-0.5) 06/21/19 20:35 Baso # (Auto) 0.02 K/uL (0-0.2) 06/21/19 20:35 Echinocytes 1+ 06/21/19 20:35 PT 11.9 Seconds (9.0-12.0) 06/21/19 20:35 INR 1.2 (0.9-1.1) H 06/21/19 20:35 APTT 34.3 Seconds (21.0-31.0) H 06/21/19 20:35 PTT Ratio 1.3 06/21/19 20:35 VBG pH 7.40 (7.36-7.41) 06/21/19 21:31 VBG pCO2 42 mmHg (38-50) 06/21/19 21:31 VBG pO2 28 mmHg 06/21/19 21:31 VBG HCO3 26 mmol/L 06/21/19 21:31 VBG O2 Saturation < 60.0 % 06/21/19 21:31 VBG Base Excess 0.6 mEq/L 06/21/19 21:31 Barometric Pressure 737.0 mm/Hg 06/21/19 21:31 Sodium 133 mmol/L (136-145) L 06/21/19 20:35 Potassium 4.4 mmol/L (3.5-5.1) 06/21/19 20:35 Chloride 99 mmol/L (98-107) 06/21/19 20:35 Carbon Dioxide 24 mmol/L (21-32) 06/21/19 20:35 Anion Gap 9.0 (3-11) 06/21/19 20:35 BUN 35 mg/dl (7-18) H 06/21/19 20:35 Creatinine 1.24 mg/dl (0.6-1.2) H 06/21/19 20:35 Est Cr Clr Drug Dosing 28.6 ml/min 06/21/19 20:35 Est GFR ( Amer) 47.5 06/21/19 20:35 Est GFR (Non-Af Amer) 41.0 06/21/19 20:35 BUN/Creatinine Ratio 28.3 (10-20) H 06/21/19 20:35 Glucose 158 mg/dl (70-99) H 06/21/19 20:35 Lactate 4.0 mmol/L (0.4-2.0) H* 06/21/19 23:18 Calcium 9.3 mg/dl (8.5-10.1) 06/21/19 20:35 Phosphorus 1.7 mg/dl (2.5-4.9) L 06/21/19 20:35 Magnesium 2.3 mg/dl (1.8-2.4) 06/21/19 20:35 Total Bilirubin 0.8 mg/dl (0.2-1) 06/21/19 20:35 AST 430 U/L (15-37) H 06/21/19 20:35 ALT 442 U/L (12-78) H 06/21/19 20:35 Alkaline Phosphatase 107 U/L (45-117) 06/21/19 20:35 Troponin I < 0.015 ng/ml (0-0.045) 06/21/19 20:35 NT-Pro-B Natriuret Pep 4796 pg/ml (0-1800) H 06/21/19 20:35 Total Protein 7.8 gm/dl (6.4-8.2) 06/21/19 20:35 Albumin 3.2 gm/dl (3.4-5.0) L 06/21/19 20:35 Globulin 4.6 gm/dl (2.5-4.0) H 06/21/19 20:35 Albumin/Globulin Ratio 0.7 (0.9-2) L 06/21/19 20:35 Procalcitonin 47.75 ng/ml (0-0.5) H 06/21/19 20:35 TSH 0.401 uIu/ml (0.300-4.500) 06/21/19 20:35 Urine Color Yellow 06/21/19 21:12 Urine Appearance Cloudy (Clear) A 06/21/19 21:12 Urine pH 5.5 (4.5-7.5) 06/21/19 21:12 Ur Specific [place] >= 1.030 (1.000-1.030) 06/21/19 21:12 Urine Protein 3+ (Negative) H 06/21/19 21:12 Urine Glucose (UA) Trace (Negative) H 06/21/19 21:12 Urine Ketones Trace (Negative) H 06/21/19 21:12 Urine Blood 3+ (Negative) H 06/21/19 21:12 Urine Nitrite Negative (Negative) 06/21/19 21:12 Urine Bilirubin Negative (Negative) 06/21/19 21:12 Urine Urobilinogen Negative (Negative) 06/21/19 21:12 Ur Leukocyte Esterase Negative (Negative) 06/21/19 21:12 Urine RBC 0-4 /hpf (0-4) 06/21/19 21:12 Urine WBC 5-10 /hpf (0-5) H 06/21/19 21:12 Ur Epithelial Cells 5-10 /lpf (0-5) H 06/21/19 21:12 Urine Bacteria 1+ (Negative) H 06/21/19 21:12 Hyaline Casts 0-5 /lpf (0-5) 06/21/19 21:12 Granular Casts 10-20 /lpf (0) H 06/21/19 21:12 Influenza Type A (PCR) Neg for Influ A (Neg) 06/21/19 22:26 Influenza Type B (PCR) Neg for Influ B (Neg) 06/21/19 22:[address] chest initial read: No evidence of PE, lungs are clear. Centrilobular emphysema worse at the upper lungs. CT abdomen pelvis initial read: 5.3 cyst upper pole of the left kidney. A few similar renal cysts noted on the right. No obstructive uropathy. Multiseptated hypodense lesion concerning for neoplasm at the inferior aspect of the right lobe of the liver measuring 10.6 x 6.9 cm. Colonic diverticulosis. Hiatal hernia. EKG as per my interpretation: Rate 140, A. fib, normal axis, septal infarct, MI WP
[2019-06-22] MEDS ORDERED: HEPARIN 25000 UNIT/500 ML D5W IV ONE (01:51)
[2019-06-22] MEDS: HEPARIN SODIUM/DEXTROSE 25,000 UNITS/500 ML BAG IV SCH (02:00)
[2019-06-22 02:40] LABS: Base Excess ABG -4.4 mEq/L (-9-1.8); HCO3 ABG 19 mmol/L (19-24); Oxygen Saturation ABG 95.5 % (90-95); PCO2 ABG 31 mmHg (35-46); PO2 ABG 77 mm/Hg (80-95); pH ABG 7.41 (7.35-7.45)
[2019-06-22] MEDS ORDERED: NITROGLYCERIN SL 0.4 MG/TAB TAB SL PRN (02:58)
[2019-06-22] MEDS ORDERED: PROMETHAZINE HCL 12.5 MG in SODIUM CHLORIDE 0.9% 50 ML IV PRN (02:58)
[2019-06-22] MEDS ORDERED: TRAMADOL HCL 50 MG TABLET PO PRN (02:58)
[2019-06-22] MEDS ORDERED: ACETAMINOPHEN 325 MG TAB PO PRN (02:58)
[2019-06-22 03:00] LABS: Hematocrit (blood only) 31.9 % (37-47); Hemoglobin 10.8 g/dL (12.0-16.0); Mean Corpuscular Hemoglobin 32.1 pg (25-34); Mean Corpuscular Hgb Conc 33.9 g/dL (32-36); Mean Corpuscular Volume 94.9 fL (80-100); Mean Platelet Volume 11.4 fL (7.4-10.4); Platelet Count 106 K/uL (130-400); RDW Coefficient of Variation 15.1 % (11.5-14.5); RDW Standard Deviation 51.8 fL (36.4-46.3); Red Blood Count 3.36 M/uL (4.2-5.4); White Blood Count 13.28 K/uL (4.8-10.8)
[2019-06-22 03:01] LABS: ALC (manual) 0.23 K/uL (1.2-3.4); ANC (manual) 13.05 K/uL (1.4-6.5); Dohle Bodies 2+; Echinocytes 1+; Lymphocytes # (manual) 0.23 K/uL (1.2-3.4); Lymphocytes % (manual) 1.7 %; Neutrophils # (manual) 13.05 K/uL (1.4-6.5); Neutrophils % (manual) 98.3 %; Toxic Vacuolation 2+
[2019-06-22 03:04] LABS: Albumin Globulin Ratio 0.7 (0.9-2); Albumin Level 2.4 gm/dl (3.4-5.0); BUN Creatinine Ratio 28.5 (10-20); Bilirubin,Total 0.9 mg/dl (0.2-1); Calcium 7.9 mg/dl (8.5-10.1); Creatinine Clr Calc Pharmacy 35.8 ml/min; Est GFR (African American) 62.4; Est GFR (Non-African American) 53.8; Globulin 3.6 gm/dl (2.5-4.0)
[2019-06-22] MEDS ORDERED: METOPROLOL TARTRATE 1 MG/ML VIAL IV STA (03:37)
[2019-06-22 03:38] LABS: Allen Test POS (Pos)
[2019-06-22] MEDS ORDERED: dilTIAZem HCl 5 MG/ML 5 ML VIAL IV STA (04:19)
[2019-06-22] MEDS ORDERED: HYDROmorphone INJ 0.5 MG/0.5 ML SYR IV STA ×2 (04:22→05:41)
[2019-06-22] MEDS ORDERED: HYDROmorphone INJ 0.5 MG/0.5 ML SYR IV PRN ×2 (04:22→05:41)
[2019-06-22] MEDS ORDERED: HYDROmorphone INJ 0.5 MG/0.5 ML SYR ONE (04:26)
[2019-06-22] MEDS ORDERED: METOPROLOL SUCC 50MG EXT REL TAB PO SCH ×2 (04:30→09:00)
[2019-06-22] MEDS ORDERED: dilTIAZem HCl 5 MG/ML 5 ML VIAL IV ONE ×3 (07:05→11:15)
[2019-06-22] MEDS ORDERED: METOPROLOL TARTRATE 1 MG/ML VIAL IV ONE (07:05)
[2019-06-22] MEDS ORDERED: PIPERACILLIN/TAZOBACTAM 3.375 GM in DEXTROSE 5% 100 ML IV ONE (07:15)
--- NOTE | 2019-06-22 08:08 | CT Scan Report ---
CHEST CTA for PULMONARY ARTERIES CT DOSE: 544.99 mGy.cm HISTORY: Atypical chest pain. Shortness of breath. TECHNIQUE: Multiaxial CT images of the chest were performed following the intravenous administration of contrast to evaluate the pulmonary arteries. Maximal intensity projection images were also obtaine d. A dose lowering technique was utilized adhering to the principles of ALARA. COMPARISON STUDY: None. FINDINGS: Calcified plaque within the normal caliber thoracic aorta. No evidence for an aortic dissec tion. The heart is mildly enlarged. No pleural or pericardial effusions. No filling defects within th e pulmonary arteries to suggest pulmonary embolus. Small hiatus hernia. No mediastinal or hilar lymph adenopathy. A 1.1 cm left thyroid nodule. No suspicious lytic or blastic osseous lesions. No pneumoth orax. Mild emphysema. The central airways are patent. A 5 mm indeterminate pulmonary nodule within th e right upper lobe on image 212. Bibasilar densities favor subsegmental atelectasis. IMPRESSION: 1. No evidence for pulmonary embolus. 2. Mild emphysema. 3. Mild cardiomegaly. 4. A 5 mm indeterminate pulmonary nodule within the right upper lobe. Please refer to the chart below for recommended follow-up. Please refer to below summary of Fleischner criteria recommendations for follow-up of incidental CT n odules (Venessa Meza, Guidelines for management of small pulmonary nodules detected on CT scans: A sta tement from the Fleischner Society, Radiology 237: [phone].) SOLID NODULES Solitary nodule size: <6 mm * Low risk patients: no follow-up needed * high risk patients: optional CT at 12 months Solitary nodule size: 6-8 mm * Low risk patients: follow-up at 6-12 months, then consider further follow-up at 18-24 months * high risk patients: initial follow-up CT at 6-12 months and then at 18-24 months if no change Solitary nodule size: >8 mm * either low or high risk patients - consider follow-up CT at 3 months, and/or CT-PET, and/or biopsy Multiple nodules size: <6 mm * Low risk patients: no routine follow-up * high risk patients: optional CT at 12 months Multiple nodules size: 6-8 mm * Low risk patients: follow-up at 3-6 months, then consider further follow-up at 18-24 months * high risk patients: follow-up at 3-6 months, then at 18-24 months if no change Multiple nodules size: >8 mm * Low risk patients: follow-up at 3-6 months, then consider further follow-up at 18-24 months * high risk patients: follow-up at 3-6 months, then at 18-24 months if no change Note: newly detected indeterminate nodule in persons 35 years of age or older. * Low risk patients: minimal or absent history of smoking and/or other known risk factors * high risk patients: history of smoking or of other known risk factors (e.g. first degree relative with lung cancer, or exposure to asbestos, radon, uranium) * if a nodule up to 8 mm is partly solid or is ground glass further follow-up is required after 24 m onths to exclude possible slow growing adenocarcinoma (TESSIE) SUBSOLID NODULES Solitary pure ground-glass nodule * nodule size <6 mm - no CT follow-up required * nodule size >=6 mm - follow-up CT at 6-12 months, then every 2 years until 5 years Solitary part-solid nodule * nodule size <6 mm - no CT follow-up required * nodule size >=6 mm - follow-up CT at 3-6 months. If unchanged, and solid component remains <6 mm, then annual follow-up for 5 years Multiple subsolid nodules * nodule size <6 mm - follow-up CT at 3-6 months, consider further follow-up at 2 and 4 years if sta ble * nodule size >=6 mm - follow-up CT at 3-6 months, subsequent management based on the most suspiciou s nodule(s) Electronically signed by: Jasbir Bautista M.D. 06/22/2019 8:07 AM
--- NOTE | 2019-06-22 08:22 | Cardiology Consultation ---
Date of Consultation June 22, 2019 Assessment & Plan (1) Atrial fibrillation with RVR: Continue oral diltiazem and metoprolol. Rates trending down this AM since receiving morning meds. Hopeful she will convert to NSR with treatment of underlying sepsis. She also received multiple doses of digoxin since admission. Will not adjust metoprolol/diltiazem this morning until we see response from AM meds. Continue IV heparin No amiodarone given elevated LFT's Prior episode of PAF noted in 2018 at time of NSTEMI/pericarditis/pericardial effusion - she was not anticoagulated at that time due to need for dual antiplatelet therapy with recent stent and pericardial effusion. May need to consider anticoagulation as outpatient on discharge with [place]. However, given her newly diagnosed liver lesion and elevated LFT's, bleeding risk may be high. Echo ordered and pending (2) Severe sepsis: Continue antibiotics, gentle hydration per hospitalist blood cultures pending Urinalysis pending Update echo (3) Liver lesion: GI consulted. Further work up required once medically stable Monitor LFT's (4) CAD (coronary artery disease): Continue ASA, metoprolol, atorvastatin (may need to be held) no s/s of angina. Troponin negative Case discussed in detail with Dr. Lucio. Will follow. Supervising Physician Co-Signing Physician Notes Patient seen and examined with Amaya Alcocer PA-C. Agree with findings and assessment as above. States that her only complaint is that of abdominal pain but remains severe and states it is currently an 8 out of 10. Now with recurrence of atrial fibrillation in the setting of severe abdominal pain. Her rates have been very difficult to control given her ongoing pain so at this time I will start a diltiazem drip for further rate control. She will be continued on her p.o. Cardizem and metoprolol. Her metoprolol dose may have to be increa sed. She has been started on a heparin drip and then will be continued. We will hold off on any oral anticoagulation given her likely need for invasive testing this admission. Our hope is that once her pain is controlled her heart rate should improve as well. Obviously the atrial fibrillation does not appear to be contributing to her severe pain and I would recommend further work-up and testing as deemed necessary for her abdominal pain and the atrial fibrillation should not preclude or postpone this. History of Present Illness Reason for Consultation: Afib RVR; history of CAD; sepsis Requesting Physician: Dr. Soares Attending Physician: Dr. 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 Patient was admitted to [facility] secondary to worsening weakness and febrile i llness. Patient reports feeling unwell for about 10 days prior to admission. She has difficulty recalling and detailing the recent week. Upon presentation to ER, diagnosed with acute sepsis likely urinary source. She was also found to have atrial fibrillation with a rapid ventricular response. Started on appropriate fluid resuscitation and antibiotic therapy. Blood cultures pending. Urine cultures pending. Treated with several doses of IV metoprolol and IV digoxin for rate control. Started on IV heparin for anticoagulation. LFTs were elevated. Chest CT was unremarkable for for acute PE or CHF. Abdominal CT demonstrates new concerning liver lesion. GI was consulted. At time of consult, heart rates were trending down with persistent atrial fibrillation ranging 90 to 110 bpm. Patient received her morning medications approximately 30 minutes prior to consultation. She was mildly disoriented and had difficulty recalling recent events at time of consult. Limited review of s ystems and most history obtained from medical records. He reports feeling poorly this morning but unable to give me specific complaints other than persistent abdominal pain. Tenderness with movement as well. Per nursing staff, patient has been mildly disoriented since her arrival. She denies acute chest pain or SOB. She denies symptoms of palpitations. She does report dyspnea last evening, but now resolved. Allergies Allergy/AdvReac Type Severity Reaction Status Date / Time No Known Allergies Allergy Verified 06/21/19 22:20 Home Medications Home Medications Medication Instructions Recorded Confirmed Type albuterol sulfate [Ventolin HFA] 2 puff INHALATION Q4H PRN 06/21/19 06/21/19 History aspirin 81 mg PO DAILY 06/21/19 06/21/19 History atorvastatin 40 mg PO QAM 06/21/19 06/21/19 History calcium carbonate-vitamin D3 1 tab PO DAILY 06/21/19 06/21/19 History [Calcium 600 + D(3)] cholecalciferol (vitamin D3) 2,000 unit PO DAILY 06/21/19 06/21/19 History [Vitamin D3] diltiazem HCl 120 mg PO QAM 06/21/19 06/21/19 History fluticasone propion-salmeterol 1 inh INHALATION BID 06/21/19 06/21/19 History [Advair Diskus] fluticasone propionate [Flonase 2 spray INTRANASAL DAILY 06/21/19 06/21/19 History Allergy Relief] ipratropium-albuterol [Combivent 1 puff INHALATION QID 06/21/19 06/21/19 History Respimat] metoprolol succinate 50 mg PO DAILY 06/21/19 06/21/19 History montelukast 10 mg PO QAM 06/21/19 06/21/19 History nitroglycerin [Nitrostat] 0.4 mg SUBLINGUAL DIRECTED PRN 06/21/19 06/21/19 History tramadol 100 mg PO Q8H PRN 06/21/19 06/21/19 History Patient History Medical History (Updated 06/22/19 @ 11:23 by Amaya Alcocer PA-C) Asthma CAD (coronary artery disease) Chest pain Liver lesion NSTEMI (non-ST elevated myocardial infarction) Surgical History Hx of heart artery stent Family History Other Family history non-contributory Social History Preferred Language: Tristanian Communication Ability: Effective Beliefs That Will Affect Care: None Current Living Situation: Alone Feels Safe at Home: Yes Safety Concerns: Feels Safe At This Time Smoking Status: Never smoker Hx Alcohol Use: Yes Alcohol type: wine Hx Substance Use: No Review of Systems Review of Systems: Unobtainable due to cognitive status (Limited. See HPI.) Physical Exam Constitutional: well nourished, + ill appearing and + altered mental status Eyes: PERRL, conjunctivae normal, anicteric sclerae Respiratory: normal respiratory effort, lungs clear to auscultation Cardiovascular: Rate/Rhythm: + tachycardic and + irregularly irregular Heart Sounds: no murmur Vessels: no JVD Extremities: no edema Gastrointestinal (Abdomen): Percussion/Palpation: + abdomen tender (diffuse) and abdomen soft Neurologic: PERRL, EOMI, accommodation nl, no face palsy, no dysarthria Psychiatric: Orientation: alert and oriented x 3 Results & Data Vital Signs (Past 12 Hours) Vital Signs Temp Pulse Pulse Resp BP BP BP 06/22/19 07:46 38.0 C H 111 H 18 154/81 H 06/22/19 06:45 147 H 14 168/95 H 06/22/19 05:50 139 H 16 174/104 H 06/22/19 04:16 134 H 161/110 H 06/22/19 03:25 140 H 06/22/19 03:10 136 H 06/22/19 02:41 36.8 C 138 H 22 150/81 H 06/22/19 02:00 137 H 22 117/74 06/22/19 01:30 141 H 20 123/74 06/22/19 01:03 37.0 C 06/22/19 01:02 132 H 26 H 121/76 06/22/19 00:30 124 H 25 H 95/74 L 06/22/19 00:21 128 H 06/22/19 00:00 143 H 25 H 88/58 L 06/21/19 23:55 144 H 105/62 06/21/19 23:30 140 H 18 105/62 06/21/19 23:25 37.1 C 141 H 30 H 06/21/19 23:08 116 H 34 H 101/54 L 06/21/19 22:30 114 H 35 H 125/61 06/21/19 22:00 106 H 32 H 121/74 06/21/19 21:48 107 H 24 122/81 06/21/19 21:25 102 H 19 06/21/19 21:17 06/21/19 21:09 06/21/19 20:49 108 H 30 H 129/79 06/21/19 20:47 38.9 C H 108 H 26 H 129/79 Pulse Ox 06/22/19 07:46 92 06/22/19 06:45 06/22/19 05:50 06/22/19 04:16 06/22/19 03:25 06/22/19 03:10 06/22/19 02:41 96 06/22/19 02:00 96 06/22/19 01:30 95 06/22/19 01:03 06/22/19 01:02 93 06/22/19 00:30 94 06/22/19 00:21 06/22/19 00:00 96 06/21/19 23:55 06/21/19 23:30 97 06/21/19 23:25 97 06/21/19 23:08 97 06/21/19 22:30 98 06/21/19 22:00 99 06/21/19 21:48 98 06/21/19 21:25 96 06/21/19 21:17 95 06/21/19 21:09 84 L 06/21/19 20:49 96 06/21/19 20:47 92 Laboratory Results 06/22/19 06/22/19 06/22/19 Range/Units 08:00 06:28 02:24 WBC (4.8-10.8) K/uL RBC (4.2-5.4) M/uL Hgb (12.0-16.0) g/dL Hct (37-47) % MCV (80-100) fL MCH (25-34) pg MCHC (32-36) g/dL RDW Std Deviation (36.4-46.3) fL RDW Coeff of Gillian (11.5-14.5) % Plt Count (130-400) K/uL MPV (7.4-10.4) fL Immature Gran % (Auto) % Neut % (Auto) % Lymph % (Auto) % [place] % (Auto) % Eos % (Auto) % Baso % (Auto) % Immature Gran # (Auto) (0.00-0.02) K/uL Neut # (Auto) (1.4-6.5) K/uL Lymph # (Auto) (1.2-3.4) K/uL [place] # (Auto) (0.11-0.59) K/uL Eos # (Auto) (0-0.5) K/uL Baso # (Auto) (0-0.2) K/uL Neutrophils % (Manual) % Lymphocytes % (Manual) % Neutrophils # (Manual) (1.4-6.5) K/uL Total Absolute Neuts (1.4-6.5) K/uL Lymphocytes # (Manual) (1.2-3.4) K/uL Total Abs Lymphocytes (1.2-3.4) K/uL Toxic Vacuolation Dohle Bodies Echinocytes PT (9.0-12.0) Seconds INR (0.9-1.1) APTT Pending (21.0-31.0) Seconds PTT Ratio Pending ABG pH 7.41 (7.35-7.45) ABG pCO2 31 L (35-46) mmHg ABG pO2 77 L (80-95) mm/Hg ABG HCO3 19 (19-24) mmol/L ABG O2 Saturation 95.5 H (90-95) % ABG Base Excess -4.4 (-9-1.8) mEq/L Abhilash Test POS (Pos) VBG pH (7.36-7.41) VBG pCO2 (38-50) mmHg VBG pO2 mmHg VBG HCO3 mmol/L VBG O2 Saturation % VBG Base Excess mEq/L Barometric Pressure 737.3 mm/Hg Oxygen Given 3 L Sodium (136-145) mmol/L Potassium (3.5-5.1) mmol/L Chloride (98-107) mmol/L Carbon Dioxide (21-32) mmol/L Anion Gap (3-11) BUN (7-18) mg/dl Creatinine (0.6-1.2) mg/dl Est Cr Clr Drug Dosing ml/min Est GFR ( Amer) Est GFR (Non-Af Amer) BUN/Creatinine Ratio (10-20) Glucose (70-99) mg/dl Lactate 3.1 H* (0.4-2.0) mmol/L Calcium (8.5-10.1) mg/dl Phosphorus (2.5-4.9) mg/dl Magnesium (1.8-2.4) mg/dl Total Bilirubin (0.2-1) mg/dl AST (15-37) U/L ALT (12-78) U/L Alkaline Phosphatase (45-117) U/L Ammonia (11-32) umol/L Troponin I (0-0.045) ng/ml NT-Pro-B Natriuret Pep (0-1800) pg/ml Total Protein (6.4-8.2) gm/dl Albumin (3.4-5.0) gm/dl Globulin (2.5-4.0) gm/dl Albumin/Globulin Ratio (0.9-2) Procalcitonin (0-0.5) ng/ml TSH (0.300-4.500) uIu/ml Urine Color Urine Appearance (Clear) Urine pH (4.5-7.5) Ur Specific [place] (1.000-1.030) Urine Protein (Negative) Urine Glucose (UA) (Negative) Urine Ketones (Negative) Urine Blood (Negative) Urine Nitrite (Negative) Urine Bilirubin (Negative) Urine Urobilinogen (Negative) Ur Leukocyte Esterase (Negative) Urine RBC (0-4) /hpf Urine WBC (0-5) /hpf Ur Epithelial Cells (0-5) /lpf Urine Bacteria (Negative) Hyaline Casts (0-5) /lpf Granular Casts (0) /lpf Influenza Type A (PCR) (Neg) Influenza Type B (PCR) (Neg) 06/22/19 06/22/19 06/22/19 Range/Units 02:24 02:24 02:24 WBC (4.8-10.8) K/uL RBC (4.2-5.4) M/uL Hgb (12.0-16.0) g/dL Hct (37-47) % MCV (80-100) fL MCH (25-34) pg MCHC (32-36) g/dL RDW Std Deviation (36.4-46.3) fL RDW Coeff of Gillian (11.5-14.5) % Plt Count (130-400) K/uL MPV (7.4-10.4) fL Immature Gran % (Auto) % Neut % (Auto) % Lymph % (Auto) % [place] % (Auto) % Eos % (Auto) % Baso % (Auto) % Immature Gran # (Auto) (0.00-0.02) K/uL Neut # (Auto) (1.4-6.5) K/uL Lymph # (Auto) (1.2-3.4) K/uL [place] # (Auto) (0.11-0.59) K/uL Eos # (Auto) (0-0.5) K/uL Baso # (Auto) (0-0.2) K/uL Neutrophils % (Manual) % Lymphocytes % (Manual) % Neutrophils # (Manual) (1.4-6.5) K/uL Total Absolute Neuts (1.4-6.5) K/uL Lymphocytes # (Manual) (1.2-3.4) K/uL Total Abs Lymphocytes (1.2-3.4) K/uL Toxic Vacuolation Dohle Bodies Echinocytes PT (9.0-12.0) Seconds INR (0.9-1.1) APTT (21.0-31.0) Seconds PTT Ratio ABG pH (7.35-7.45) ABG pCO2 (35-46) mmHg ABG pO2 (80-95) mm/Hg ABG HCO3 (19-24) mmol/L ABG O2 Saturation (90-95) % ABG Base Excess (-9-1.8) mEq/L Abhilash Test (Pos) VBG pH (7.36-7.41) VBG pCO2 (38-50) mmHg VBG pO2 mmHg VBG HCO3 mmol/L VBG O2 Saturation % VBG Base Excess mEq/L Barometric Pressure mm/Hg Oxygen Given Sodium 138 (136-145) mmol/L Potassium 4.0 (3.5-5.1) mmol/L Chloride 110 H (98-107) mmol/L Carbon Dioxide 22 (21-32) mmol/L Anion Gap 6.0 (3-11) BUN 28 H (7-18) mg/dl Creatinine 0.99 (0.6-1.2) mg/dl Est Cr Clr Drug Dosing 35.8 ml/min Est GFR ( Amer) 62.4 Est GFR (Non-Af Amer) 53.8 BUN/Creatinine Ratio 28.5 H (10-20) Glucose 234 H (70-99) mg/dl Lactate 2.8 H* (0.4-2.0) mmol/L Calcium 7.9 L D (8.5-10.1) mg/dl Phosphorus (2.5-4.9) mg/dl Magnesium (1.8-2.4) mg/dl Total Bilirubin 0.9 (0.2-1) mg/dl AST 487 H (15-37) U/L ALT 434 H (12-78) U/L Alkaline Phosphatase 84 (45-117) U/L Ammonia < 10.0 L (11-32) umol/L Troponin I (0-0.045) ng/ml NT-Pro-B Natriuret Pep (0-1800) pg/ml Total Protein 6.0 L D (6.4-8.2) gm/dl Albumin 2.4 L (3.4-5.0) gm/dl Globulin 3.6 (2.5-4.0) gm/dl Albumin/Globulin Ratio 0.7 L (0.9-2) Procalcitonin (0-0.5) ng/ml TSH (0.300-4.500) uIu/ml Urine Color Urine Appearance (Clear) Urine pH (4.5-7.5) Ur Specific [place] (1.000-1.030) Urine Protein (Negative) Urine Glucose (UA) (Negative) Urine Ketones (Negative) Urine Blood (Negative) Urine Nitrite (Negative) Urine Bilirubin (Negative) Urine Urobilinogen (Negative) Ur Leukocyte Esterase (Negative) Urine RBC (0-4) /hpf Urine WBC (0-5) /hpf Ur Epithelial Cells (0-5) /lpf Urine Bacteria (Negative) Hyaline Casts (0-5) /lpf Granular Casts (0) /lpf Influenza Type A (PCR) (Neg) Influenza Type B (PCR) (Neg) 06/22/19 06/21/19 06/21/19 Range/Units 02:24 23:18 22:26 WBC 13.28 H D (4.8-10.8) K/uL RBC 3.36 L (4.2-5.4) M/uL Hgb 10.8 L (12.0-16.0) g/dL Hct 31.9 L (37-47) % MCV 94.9 (80-100) fL MCH 32.1 (25-34) pg MCHC 33.9 (32-36) g/dL RDW Std Deviation 51.8 H (36.4-46.3) fL RDW Coeff of Gillian 15.1 H (11.5-14.5) % Plt Count 106 L (130-400) K/uL MPV 11.4 H (7.4-10.4) fL Immature Gran % (Auto) % Neut % (Auto) % Lymph % (Auto) % [place] % (Auto) % Eos % (Auto) % Baso % (Auto) % Immature Gran # (Auto) (0.00-0.02) K/uL Neut # (Auto) (1.4-6.5) K/uL Lymph # (Auto) (1.2-3.4) K/uL [place] # (Auto) (0.11-0.59) K/uL Eos # (Auto) (0-0.5) K/uL Baso # (Auto) (0-0.2) K/uL Neutrophils % (Manual) 98.3 % Lymphocytes % (Manual) 1.7 % Neutrophils # (Manual) 13.05 H (1.4-6.5) K/uL Total Absolute Neuts 13.05 H (1.4-6.5) K/uL Lymphocytes # (Manual) 0.23 L (1.2-3.4) K/uL Total Abs Lymphocytes 0.23 L (1.2-3.4) K/uL Toxic Vacuolation 2+ Dohle Bodies 2+ Echinocytes 1+ PT (9.0-12.0) Seconds INR (0.9-1.1) APTT (21.0-31.0) Seconds PTT Ratio ABG pH (7.35-7.45) ABG pCO2 (35-46) mmHg ABG pO2 (80-95) mm/Hg ABG HCO3 (19-24) mmol/L ABG O2 Saturation (90-95) % ABG Base Excess (-9-1.8) mEq/L Abhilash Test (Pos) VBG pH (7.36-7.41) VBG pCO2 (38-50) mmHg VBG pO2 mmHg VBG HCO3 mmol/L VBG O2 Saturation % VBG Base Excess mEq/L Barometric Pressure mm/Hg Oxygen Given Sodium (136-145) mmol/L Potassium (3.5-5.1) mmol/L Chloride (98-107) mmol/L Carbon Dioxide (21-32) mmol/L Anion Gap (3-11) BUN (7-18) mg/dl Creatinine (0.6-1.2) mg/dl Est Cr Clr Drug Dosing ml/min Est GFR ( Amer) Est GFR (Non-Af Amer) BUN/Creatinine Ratio (10-20) Glucose (70-99) mg/dl Lactate 4.0 H* (0.4-2.0) mmol/L Calcium (8.5-10.1) mg/dl Phosphorus (2.5-4.9) mg/dl Magnesium (1.8-2.4) mg/dl Total Bilirubin (0.2-1) mg/dl AST (15-37) U/L ALT (12-78) U/L Alkaline Phosphatase (45-117) U/L Ammonia (11-32) umol/L Troponin I (0-0.045) ng/ml NT-Pro-B Natriuret Pep (0-1800) pg/ml Total Protein (6.4-8.2) gm/dl Albumin (3.4-5.0) gm/dl Globulin (2.5-4.0) gm/dl Albumin/Globulin Ratio (0.9-2) Procalcitonin (0-0.5) ng/ml TSH (0.300-4.500) uIu/ml Urine Color Urine Appearance (Clear) Urine pH (4.5-7.5) Ur Specific [place] (1.000-1.030) Urine Protein (Negative) Urine Glucose (UA) (Negative) Urine Ketones (Negative) Urine Blood (Negative) Urine Nitrite (Negative) Urine Bilirubin (Negative) Urine Urobilinogen (Negative) Ur Leukocyte Esterase (Negative) Urine RBC (0-4) /hpf Urine WBC (0-5) /hpf Ur Epithelial Cells (0-5) /lpf Urine Bacteria (Negative) Hyaline Casts (0-5) /lpf Granular Casts (0) /lpf Influenza Type A (PCR) Neg for Influ A (Neg) Influenza Type B (PCR) Neg for Influ B (Neg) 06/21/19 06/21/19 06/21/19 Range/Units 21:31 21:31 21:12 WBC (4.8-10.8) K/uL RBC (4.2-5.4) M/uL Hgb (12.0-16.0) g/dL Hct (37-47) % MCV (80-100) fL MCH (25-34) pg MCHC (32-36) g/dL RDW Std Deviation (36.4-46.3) fL RDW Coeff of Gillian (11.5-14.5) % Plt Count (130-400) K/uL MPV (7.4-10.4) fL Immature Gran % (Auto) % Neut % (Auto) % Lymph % (Auto) % [place] % (Auto) % Eos % (Auto) % Baso % (Auto) % Immature Gran # (Auto) (0.00-0.02) K/uL Neut # (Auto) (1.4-6.5) K/uL Lymph # (Auto) (1.2-3.4) K/uL [place] # (Auto) (0.11-0.59) K/uL Eos # (Auto) (0-0.5) K/uL Baso # (Auto) (0-0.2) K/uL Neutrophils % (Manual) % Lymphocytes % (Manual) % Neutrophils # (Manual) (1.4-6.5) K/uL Total Absolute Neuts (1.4-6.5) K/uL Lymphocytes # (Manual) (1.2-3.4) K/uL Total Abs Lymphocytes (1.2-3.4) K/uL Toxic Vacuolation Dohle Bodies Echinocytes PT (9.0-12.0) Seconds INR (0.9-1.1) APTT (21.0-31.0) Seconds PTT Ratio ABG pH (7.35-7.45) ABG pCO2 (35-46) mmHg ABG pO2 (80-95) mm/Hg ABG HCO3 (19-24) mmol/L ABG O2 Saturation (90-95) % ABG Base Excess (-9-1.8) mEq/L Abhilash Test (Pos) VBG pH 7.40 (7.36-7.41) VBG pCO2 42 (38-50) mmHg VBG pO2 28 mmHg VBG HCO3 26 mmol/L VBG O2 Saturation < 60.0 % VBG Base Excess 0.6 mEq/L Barometric Pressure 737.0 mm/Hg Oxygen Given Sodium (136-145) mmol/L Potassium (3.5-5.1) mmol/L Chloride (98-107) mmol/L Carbon Dioxide (21-32) mmol/L Anion Gap (3-11) BUN (7-18) mg/dl Creatinine (0.6-1.2) mg/dl Est Cr Clr Drug Dosing ml/min Est GFR ( Amer) Est GFR (Non-Af Amer) BUN/Creatinine Ratio (10-20) Glucose (70-99) mg/dl Lactate 2.6 H* (0.4-2.0) mmol/L Calcium (8.5-10.1) mg/dl Phosphorus (2.5-4.9) mg/dl Magnesium (1.8-2.4) mg/dl Total Bilirubin (0.2-1) mg/dl AST (15-37) U/L ALT (12-78) U/L Alkaline Phosphatase (45-117) U/L Ammonia (11-32) umol/L Troponin I (0-0.045) ng/ml NT-Pro-B Natriuret Pep (0-1800) pg/ml Total Protein (6.4-8.2) gm/dl Albumin (3.4-5.0) gm/dl Globulin (2.5-4.0) gm/dl Albumin/Globulin Ratio (0.9-2) Procalcitonin (0-0.5) ng/ml TSH (0.300-4.500) uIu/ml Urine Color Yellow Urine Appearance Cloudy A (Clear) Urine pH 5.5 (4.5-7.5) Ur Specific [place] >= 1.030 (1.000-1.030) Urine Protein 3+ H (Negative) Urine Glucose (UA) Trace H (Negative) Urine Ketones Trace H (Negative) Urine Blood 3+ H (Negative) Urine Nitrite Negative (Negative) Urine Bilirubin Negative (Negative) Urine Urobilinogen Negative (Negative) Ur Leukocyte Esterase Negative (Negative) Urine RBC 0-4 (0-4) /hpf Urine WBC 5-10 H (0-5) /hpf Ur Epithelial Cells 5-10 H (0-5) /lpf Urine Bacteria 1+ H (Negative) Hyaline Casts 0-5 (0-5) /lpf Granular Casts 10-20 H (0) /lpf Influenza Type A (PCR) (Neg) Influenza Type B (PCR) (Neg) 06/21/19 06/21/19 06/21/19 Range/Units 20:35 20:35 20:35 WBC (4.8-10.8) K/uL RBC (4.2-5.4) M/uL Hgb (12.0-16.0) g/dL Hct (37-47) % MCV (80-100) fL MCH (25-34) pg MCHC (32-36) g/dL RDW Std Deviation (36.4-46.3) fL RDW Coeff of Gillian (11.5-14.5) % Plt Count (130-400) K/uL MPV (7.4-10.4) fL Immature Gran % (Auto) % Neut % (Auto) % Lymph % (Auto) % [place] % (Auto) % Eos % (Auto) % Baso % (Auto) % Immature Gran # (Auto) (0.00-0.02) K/uL Neut # (Auto) (1.4-6.5) K/uL Lymph # (Auto) (1.2-3.4) K/uL [place] # (Auto) (0.11-0.59) K/uL Eos # (Auto) (0-0.5) K/uL Baso # (Auto) (0-0.2) K/uL Neutrophils % (Manual) % Lymphocytes % (Manual) % Neutrophils # (Manual) (1.4-6.5) K/uL Total Absolute Neuts (1.4-6.5) K/uL Lymphocytes # (Manual) (1.2-3.4) K/uL Total Abs Lymphocytes (1.2-3.4) K/uL Toxic Vacuolation Dohle Bodies Echinocytes PT 11.9 (9.0-12.0) Seconds INR 1.2 H (0.9-1.1) APTT 34.3 H (21.0-31.0) Seconds PTT Ratio 1.3 ABG pH (7.35-7.45) ABG pCO2 (35-46) mmHg ABG pO2 (80-95) mm/Hg ABG HCO3 (19-24) mmol/L ABG O2 Saturation (90-95) % ABG Base Excess (-9-1.8) mEq/L Abhilash Test (Pos) VBG pH (7.36-7.41) VBG pCO2 (38-50) mmHg VBG pO2 mmHg VBG HCO3 mmol/L VBG O2 Saturation % VBG Base Excess mEq/L Barometric Pressure mm/Hg Oxygen Given Sodium 133 L (136-145) mmol/L Potassium 4.4 (3.5-5.1) mmol/L Chloride 99 (98-107) mmol/L Carbon Dioxide 24 (21-32) mmol/L Anion Gap 9.0 (3-11) BUN 35 H (7-18) mg/dl Creatinine 1.24 H (0.6-1.2) mg/dl Est Cr Clr Drug Dosing 28.6 ml/min Est GFR ( Amer) 47.5 Est GFR (Non-Af Amer) 41.0 BUN/Creatinine Ratio 28.3 H (10-20) Glucose 158 H (70-99) mg/dl Lactate (0.4-2.0) mmol/L Calcium 9.3 (8.5-10.1) mg/dl Phosphorus 1.7 L (2.5-4.9) mg/dl Magnesium 2.3 (1.8-2.4) mg/dl Total Bilirubin 0.8 (0.2-1) mg/dl AST 430 H (15-37) U/L ALT 442 H (12-78) U/L Alkaline Phosphatase 107 (45-117) U/L Ammonia (11-32) umol/L Troponin I < 0.015 (0-0.045) ng/ml NT-Pro-B Natriuret Pep 4796 H (0-1800) pg/ml Total Protein 7.8 (6.4-8.2) gm/dl Albumin 3.2 L (3.4-5.0) gm/dl Globulin 4.6 H (2.5-4.0) gm/dl Albumin/Globulin Ratio 0.7 L (0.9-2) Procalcitonin 47.75 H (0-0.5) ng/ml TSH 0.401 (0.300-4.500) uIu/ml Urine Color Urine Appearance (Clear) Urine pH (4.5-7.5) Ur Specific [place] (1.000-1.030) Urine Protein (Negative) Urine Glucose (UA) (Negative) Urine Ketones (Negative) Urine Blood (Negative) Urine Nitrite (Negative) Urine Bilirubin (Negative) Urine Urobilinogen (Negative) Ur Leukocyte Esterase (Negative) Urine RBC (0-4) /hpf Urine WBC (0-5) /hpf Ur Epithelial Cells (0-5) /lpf Urine Bacteria (Negative) Hyaline Casts (0-5) /lpf Granular Casts (0) /lpf Influenza Type A (PCR) (Neg) Influenza Type B (PCR) (Neg) 06/21/19 Range/Units 20:35 WBC 26.61 H (4.8-10.8) K/uL RBC 4.02 L (4.2-5.4) M/uL Hgb 13.1 (12.0-16.0) g/dL Hct 38.3 (37-47) % MCV 95.3 (80-100) fL MCH 32.6 (25-34) pg MCHC 34.2 (32-36) g/dL RDW Std Deviation 52.8 H (36.4-46.3) fL RDW Coeff of Gillian 15.0 H (11.5-14.5) % Plt Count 153 (130-400) K/uL MPV 12.8 H (7.4-10.4) fL Immature Gran % (Auto) 1.8 % Neut % (Auto) 87.0 % Lymph % (Auto) 2.0 % [place] % (Auto) 9.1 % Eos % (Auto) 0.0 % Baso % (Auto) 0.1 % Immature Gran # (Auto) 0.49 H (0.00-0.02) K/uL Neut # (Auto) 23.16 H (1.4-6.5) K/uL Lymph # (Auto) 0.52 L (1.2-3.4) K/uL [place] # (Auto) 2.41 H (0.11-0.59) K/uL Eos # (Auto) 0.01 (0-0.5) K/uL Baso # (Auto) 0.02 (0-0.2) K/uL Neutrophils % (Manual) % Lymphocytes % (Manual) % Neutrophils # (Manual) (1.4-6.5) K/uL Total Absolute Neuts (1.4-6.5) K/uL Lymphocytes # (Manual) (1.2-3.4) K/uL Total Abs Lymphocytes (1.2-3.4) K/uL Toxic Vacuolation Dohle Bodies Echinocytes 1+ PT (9.0-12.0) Seconds INR (0.9-1.1) APTT (21.0-31.0) Seconds PTT Ratio ABG pH (7.35-7.45) ABG pCO2 (35-46) mmHg ABG pO2 (80-95) mm/Hg ABG HCO3 (19-24) mmol/L ABG O2 Saturation (90-95) % ABG Base Excess (-9-1.8) mEq/L Abhilash Test (Pos) VBG pH (7.36-7.41) VBG pCO2 (38-50) mmHg VBG pO2 mmHg VBG HCO3 mmol/L VBG O2 Saturation % VBG Base Excess mEq/L Barometric Pressure mm/Hg Oxygen Given Sodium (136-145) mmol/L Potassium (3.5-5.1) mmol/L Chloride (98-107) mmol/L Carbon Dioxide (21-32) mmol/L Anion Gap (3-11) BUN (7-18) mg/dl Creatinine (0.6-1.2) mg/dl Est Cr Clr Drug Dosing ml/min Est GFR ( Amer) Est GFR (Non-Af Amer) BUN/Creatinine Ratio (10-20) Glucose (70-99) mg/dl Lactate (0.4-2.0) mmol/L Calcium (8.5-10.1) mg/dl Phosphorus (2.5-4.9) mg/dl Magnesium (1.8-2.4) mg/dl Total Bilirubin (0.2-1) mg/dl AST (15-37) U/L ALT (12-78) U/L Alkaline Phosphatase (45-117) U/L Ammonia (11-32) umol/L Troponin I (0-0.045) ng/ml NT-Pro-B Natriuret Pep (0-1800) pg/ml Total Protein (6.4-8.2) gm/dl Albumin (3.4-5.0) gm/dl Globulin (2.5-4.0) gm/dl Albumin/Globulin Ratio (0.9-2) Procalcitonin (0-0.5) ng/ml TSH (0.300-4.500) uIu/ml Urine Color Urine Appearance (Clear) Urine pH (4.5-7.5) Ur Specific [place] (1.000-1.030) Urine Protein (Negative) Urine Glucose (UA) (Negative) Urine Ketones (Negative) Urine Blood (Negative) Urine Nitrite (Negative) Urine Bilirubin (Negative) Urine Urobilinogen (Negative) Ur Leukocyte Esterase (Negative) Urine RBC (0-4) /hpf Urine WBC (0-5) /hpf Ur Epithelial Cells (0-5) /lpf Urine Bacteria (Negative) Hyaline Casts (0-5) /lpf Granular Casts (0) /lpf Influenza Type A (PCR) (Neg) Influenza Type B (PCR) (Neg) Diagnostic Findings EKG on admission: Atrial fibrillation with rapid ventricular response Possible Anterior infarct , age undetermined Abnormal ECG When compared with ECG of 21-JUN-2019 20:47, (unconfirmed) Atrial fibrillation has replaced Sinus rhythm Chest CT report reviewed, completed on admission: IMPRESSION: 1. No evidence for pulmonary embolus. 2. Mild emphysema. 3. Mild cardiomegaly. 4. A 5 mm indeterminate pulmonary nodule within the right upper lobe. Please refer to the chart below for recommended follow-up. Chest Xray on admission, report reviewed: IMPRESSION: No acute process. Prior Data: Limited 2D transthoracic echocardiogram report 04/2018: The qualitative LV ejection fraction is 60-64% (normal). No pericardial effusion is noted. Compared to prior study of 01/13/2018, there is no significant change. 2D echocardiogram report January 13, 2018: Small loculated anterior and right lateral pericardial effusion. Cardiac tamponade is absent. The qualitative LV ejection fraction is 60-64% (normal). The left ventricular wall motion is normal. Normal IVC size and collapsability with sniff indicates a normal right atrial pressure of 3 mmHg. Medications Administered Current Inpatient Medications Acetaminophen (Tylenol) 325 mg PO Q6H PRN PRN Reason: Pain or Fever Stop: 07/22/19 02:57 Aspirin (Ecotrin Ectab) 81 mg PO DAILY [facility] Stop: 07/22/19 08:59 Atorvastatin Calcium (Lipitor) 40 mg PO QAM [facility] Stop: 07/22/19 08:59 Diltiazem HCl (Tiazac) 120 mg PO QAM [facility] Stop: 07/22/19 01:29 Last Admin: 06/22/19 02:28 Dose: 120 mg Documented by: Hydromorphone HCl (Dilaudid) 0.5 mg IV Q3H PRN PRN Reason: Pain Stop: 07/06/19 04:21 Lactated Ringer's (Lr) 1,000 mls @ 200 mls/hr IV .Q5H [facility] Stop: 06/22/19 15:00 Last Admin: 06/22/19 06:05 Dose: 200 mls/hr Documented by: Heparin Sodium/Dextrose (Heparin Sodium/Dextrose) 25,000 units in 500 mls @ 19 mls/hr IV .Q24H ANDREW; Protocol Stop: 07/22/19 01:44 Last Admin: 06/22/19 02:00 Dose: 950 units/hr, 19 mls/hr Documented by: Promethazine HCl 12.5 mg/ (Sodium Chloride) 50.5 mls @ 202 mls/hr IV Q6H PRN PRN Reason: Nausea And Vomiting Stop: 07/22/19 02:57 Piperacillin Sod/Tazobactam (Sod 3.375 gm/ Dextrose) 115 mls @ 28.75 mls/hr IV Q8H [facility]; Protocol Stop: 07/02/19 11:59 Metoprolol Succinate (Toprol Xl) 50 mg PO DAILY [facility] Stop: 07/22/19 04:29 Last Admin: 06/22/19 05:53 Dose: 50 mg Documented by: Miscellaneous Information (Consult) 1 ea N/A UD PRN PRN Reason: Consult Stop: 07/21/19 22:01 Montelukast Sodium (Singulair) 10 mg PO QAM [facility] Stop: 07/22/19 08:59 Nitroglycerin (Nitrostat) 0.4 mg SL UD PRN PRN Reason: Chest Pain Stop: 07/22/19 02:57 Fluticasone/Salmeterol (Advair Diskus 500/50) 1 puffs INH BID [facility]RE[facility] Stop: 07/22/19 08:59 Tramadol HCl (Ultram) 25 mg PO Q8H PRN PRN Reason: Pain Stop: 07/22/19 02:57 (1) CAD (coronary artery disease) Associated angina: without angina Coronary Disease-Associated Artery/Lesion type: [place] artery Tribe vs. transplanted heart: [place] heart Qualified Code(s): I25.10 - Atherosclerotic heart disease of [place] coronary artery without angina pectoris
[2019-06-22] MEDS: ASPIRIN 81 MG ECTAB PO SCH (08:27)
[2019-06-22] MEDS: FLUTICASONE/SALMETEROL (ADVAIR) 500/50 INH 14 PUFF INH SCH ×2 (08:27→19:41)
[2019-06-22] MEDS: MONTELUKAST SODIUM 10 MG TABLET PO SCH (08:28)
[2019-06-22 08:31] LABS: Partial Thromboplastin Ratio 2.1
[2019-06-22 08:33] LABS: Partial Thromboplastin Time 56.7 Seconds (21.0-31.0)
--- NOTE | 2019-06-22 08:39 | CT Scan Report ---
CT SCAN OF THE ABDOMEN AND PELVIS WITH IV CONTRAST CLINICAL HISTORY: Nausea and fever. Transaminitis. COMPARISON STUDY: No priors. TECHNIQUE: Following the IV administration of 118 cc of Optiray 320, CT scan of the abdomen and pelv is is performed from the lung bases to the proximal femora. Images are reviewed in the axial, sagitta l, and coronal planes. IV contrast was administered without complication. A dose lowering technique w as utilized adhering to the principles of ALARA. FINDINGS: Lung bases: The heart is enlarged and without pericardial effusion. The coronary arteries are densely calcified. There is a small hiatal hernia. There is bibasilar scarring/atelectasis. No airspace cons olidation is seen typical for pneumonia and there is no pleural effusion. A calcified granuloma is no carmella at the left lung base. Liver: The contrast-enhanced liver is normal in size, contour, and attenuation. There is no intrahepa tic biliary ductal dilatation. The hepatic veins and portal veins are patent. There is a 9.5 x 10.5 x 7.5 cm mass lesion in the inferior right lobe. This is predominantly low density, well marginated, a nd demonstrates internal enhancing septations. Gallbladder: Unremarkable. Spleen: Normal in size and attenuation. Pancreas: Atrophic and grossly unremarkable. Adrenal glands: Unremarkable. Kidneys: The contrast enhanced kidneys are normal in size and without hydronephrosis. The kidneys enh ance symmetrically. A 5.3 cm cyst arises from the left upper pole. A 2.0 cm cyst is seen in the lower pole on the right. Abdominal vasculature: The abdominal aorta is normal in course and caliber noting moderate to advance d atherosclerotic calcification. Bowel: There is moderate colonic fecal retention. No bowel obstruction is seen. There is mild colonic diverticulosis without CT evidence of acute diverticulitis. The appendix is well-visualized and nor mal. Peritoneum: There is no intraperitoneal free air or abdominal ascites. There is a small fat-containin g umbilical hernia. Lymphadenopathy: None. Pelvic viscera: The bladder is normal as visualized. The uterus is surgically absent. No adnexal lesi on is seen. Skeletal structures: The skeletal structures are osteopenic. Mild to moderate lumbosacral spondylosis is observed. Degenerative sclerosis is seen in the sacroiliac joints and pubic symphysis. No lytic o r blastic lesions are seen. IMPRESSION: 1. There is a 10.5 cm pathologically indeterminant low-attenuation lesion as detailed above within th e inferior right lobe of the liver. Neoplasm is the diagnosis of exclusion, possibly a cystic neoplas m such as biliary cystadenoma/cystadenocarcinoma. Other etiologies such as hydatic cyst or hepatic in farction are considered less likely. GI follow-up is recommended. 2. Cardiomegaly and hiatal hernia. 3. Colonic diverticulosis without CT evidence of acute diverticulitis. 4. Additional findings as above. Electronically signed by: Denis Cordero M.D. 06/22/2019 8:37 AM
[2019-06-22] MEDS ORDERED: ATORVASTATIN 40 MG TAB PO SCH (09:00)
--- NOTE | 2019-06-22 09:08 | Gastrointestinal Consultation ---
Date of Consultation June 22, 2019 Assessment & Plan (1) Liver lesion: 79 year old female w/ history of NSTEMI s/p CHINO to LAD and RCA in 2018, pericarditis, afib on ASA, HTN, dyslipidemia, COPD who presents through the ED for evaluation of weakness and fatigue - admitted w/ urinary sepsis, afib, hypoxemic respiratory failure - GI asked to evaluate for abnormal imaging, 10 cm right hepatic lobe lesion. She has normal TB, ALKP w/ newly elevated AST/ALT per outpatient chart. Has never had a colonoscopy, no prior abd imaging. About 15 lb weight loss per OP records. Appreciate management of acute respiratory, cardiac conditions. Once pt is medically stable will re-evaluate her and discuss course of action for liver lesion. Will review imaging w/ attending and radiology. Repeat LFTs tomorrow - If persistently elevated can add serologic work up. Will follow. Thank you for allowing us to participate in the care of this patient. Please call with any acute changes, questions or concerns. Please see addendum below with additional recommendation from my supervising physician. Present on Admission?: Yes History of Present Illness Reason for Consultation: liver lesion Requesting Physician: John Attending Physician: Aga Lopez, DO History of Present Illness 79 year old female with history of NSTEMI s/p CHINO to LAD and RCA in 2018, pericarditis, afib on ASA, HTN, dyslipidemia, COPD who presents through the ED for evaluation of weakness and fatigue - admitted w/ urinary sepsis, afib, hypoxemic respiratory failure - GI asked to evaluate as CTAP showed liver lesion. Pt was seen and evaluated, chart reviewed. Denies any prior abd imaging. She had OP LFTs in January which were normal. Has never had EGD/Colon per chart review. Notes over the past 3/4 weeks has felt fatigued, weak and had decreased appetite but denies any abdominal pain nausea, vomiting. No diarrhea/constipation. About 15/20 lb weight loss per OP medical chart review. CTAP: There is a 10.5 cm pathologically indeterminant low-attenuation lesion as detailed above within the inferior right lobe of the liver. Neoplasm is the diagnosis of exclusion, possibly a cystic neoplasm such as biliary cystadenoma/cystadenocarcinoma. Other etiologies such as hydatic cyst or hepatic infarction are considered less likely. GI follow-up is recommended.Cardiomegaly and hiatal hernia. Colonic diverticulosis without CT evidence of acute diverticulitis. Allergies Allergy/AdvReac Type Severity Reaction Status Date / Time No Known Allergies Allergy Verified 06/21/19 22:20 Home Medications Home Medications Medication Instructions Recorded Confirmed Type albuterol sulfate [Ventolin HFA] 2 puff INHALATION Q4H PRN 06/21/19 06/21/19 History aspirin 81 mg PO DAILY 06/21/19 06/21/19 History atorvastatin 40 mg PO QAM 06/21/19 06/21/19 History calcium carbonate-vitamin D3 1 tab PO DAILY 06/21/19 06/21/19 History [Calcium 600 + D(3)] cholecalciferol (vitamin D3) 2,000 unit PO DAILY 06/21/19 06/21/19 History [Vitamin D3] diltiazem HCl 120 mg PO QAM 06/21/19 06/21/19 History fluticasone propion-salmeterol 1 inh INHALATION BID 06/21/19 06/21/19 History [Advair Diskus] fluticasone propionate [Flonase 2 spray INTRANASAL DAILY 06/21/19 06/21/19 History Allergy Relief] ipratropium-albuterol [Combivent 1 puff INHALATION QID 06/21/19 06/21/19 History Respimat] metoprolol succinate 50 mg PO DAILY 06/21/19 06/21/19 History montelukast 10 mg PO QAM 06/21/19 06/21/19 History nitroglycerin [Nitrostat] 0.4 mg SUBLINGUAL DIRECTED PRN 06/21/19 06/21/19 History tramadol 100 mg PO Q8H PRN 06/21/19 06/21/19 History Patient History Medical History Asthma Chest pain NSTEMI (non-ST elevated myocardial infarction) Surgical History Hx of heart artery stent Family History Other Family history non-contributory Social History Preferred Language: Japanese Beliefs That Will Affect Care: None Current Living Situation: Alone Feels Safe at Home: Yes Safety Concerns: Feels Safe At This Time Smoking Status: Never smoker Hx Alcohol Use: Yes Alcohol type: wine Hx Substance Use: No Review of Systems Constitutional: + fatigue, + weakness and + anorexia; no fever and no chills Respiratory: + dyspnea; no cough Cardiovascular: + dyspnea; no chest pain at rest Gastrointestinal: no abdominal pain, no nausea and no vomiting decreased appetite, weight loss Physical Exam Constitutional: + ill appearing (chronically ill appearing); no acute distress Neck: trachea midline Respiratory: normal respiratory effort wearing O2 Cardiovascular: Rate/Rhythm: + tachycardic and + irregularly irregular Gastrointestinal (Abdomen): Inspection/Auscultation: abdomen normal to inspection and normal bowel sounds; abdomen not distended Percussion/Palpation: abdomen soft; abdomen nontender, no guarding and abdomen not rigid Skin: no rashes, warm and dry Results & Data Vital Signs (Past 12 Hours) Vital Signs Temp Pulse Pulse Resp BP BP BP 06/22/19 08:26 143 H 06/22/19 07:46 38.0 C H 111 H 18 154/81 H 06/22/19 06:45 147 H 14 168/95 H 06/22/19 05:50 139 H 16 174/104 H 06/22/19 04:16 134 H 161/110 H 06/22/19 03:25 140 H 06/22/19 03:10 136 H 06/22/19 02:41 36.8 C 138 H 22 150/81 H 06/22/19 02:00 137 H 22 117/74 06/22/19 01:30 141 H 20 123/74 06/22/19 01:03 37.0 C 06/22/19 01:02 132 H 26 H 121/76 06/22/19 00:30 124 H 25 H 95/74 L 06/22/19 00:21 128 H 06/22/19 00:00 143 H 25 H 88/58 L 06/21/19 23:55 144 H 105/62 06/21/19 23:30 140 H 18 105/62 06/21/19 23:25 37.1 C 141 H 30 H 06/21/19 23:08 116 H 34 H 101/54 L 06/21/19 22:30 114 H 35 H 125/61 06/21/19 22:00 106 H 32 H 121/74 06/21/19 21:48 107 H 24 122/81 06/21/19 21:25 102 H 19 06/21/19 21:17 06/21/19 21:09 Pulse Ox 06/22/19 08:26 06/22/19 07:46 92 06/22/19 06:45 06/22/19 05:50 06/22/19 04:16 06/22/19 03:25 06/22/19 03:10 06/22/19 02:41 96 06/22/19 02:00 96 06/22/19 01:30 95 06/22/19 01:03 06/22/19 01:02 93 06/22/19 00:30 94 06/22/19 00:21 06/22/19 00:00 96 06/21/19 23:55 06/21/19 23:30 97 06/21/19 23:25 97 06/21/19 23:08 97 06/21/19 22:30 98 06/21/19 22:00 99 06/21/19 21:48 98 06/21/19 21:25 96 06/21/19 21:17 95 06/21/19 21:09 84 L Laboratory Results 06/22/19 06/22/19 06/22/19 Range/Units 08:00 06:28 02:24 WBC (4.8-10.8) K/uL RBC (4.2-5.4) M/uL Hgb (12.0-16.0) g/dL Hct (37-47) % MCV (80-100) fL MCH (25-34) pg MCHC (32-36) g/dL RDW Std Deviation (36.4-46.3) fL RDW Coeff of Gillian (11.5-14.5) % Plt Count (130-400) K/uL MPV (7.4-10.4) fL Immature Gran % (Auto) % Neut % (Auto) % Lymph % (Auto) % [place] % (Auto) % Eos % (Auto) % Baso % (Auto) % Immature Gran # (Auto) (0.00-0.02) K/uL Neut # (Auto) (1.4-6.5) K/uL Lymph # (Auto) (1.2-3.4) K/uL [place] # (Auto) (0.11-0.59) K/uL Eos # (Auto) (0-0.5) K/uL Baso # (Auto) (0-0.2) K/uL Neutrophils % (Manual) % Lymphocytes % (Manual) % Neutrophils # (Manual) (1.4-6.5) K/uL Total Absolute Neuts (1.4-6.5) K/uL Lymphocytes # (Manual) (1.2-3.4) K/uL Total Abs Lymphocytes (1.2-3.4) K/uL Toxic Vacuolation Dohle Bodies Echinocytes PT (9.0-12.0) Seconds INR (0.9-1.1) APTT 56.7 H* (21.0-31.0) Seconds PTT Ratio 2.1 ABG pH 7.41 (7.35-7.45) ABG pCO2 31 L (35-46) mmHg ABG pO2 77 L (80-95) mm/Hg ABG HCO3 19 (19-24) mmol/L ABG O2 Saturation 95.5 H (90-95) % ABG Base Excess -4.4 (-9-1.8) mEq/L Abhilash Test POS (Pos) VBG pH (7.36-7.41) VBG pCO2 (38-50) mmHg VBG pO2 mmHg VBG HCO3 mmol/L VBG O2 Saturation % VBG Base Excess mEq/L Barometric Pressure 737.3 mm/Hg Oxygen Given 3 L Sodium (136-145) mmol/L Potassium (3.5-5.1) mmol/L Chloride (98-107) mmol/L Carbon Dioxide (21-32) mmol/L Anion Gap (3-11) BUN (7-18) mg/dl Creatinine (0.6-1.2) mg/dl Est Cr Clr Drug Dosing ml/min Est GFR ( Amer) Est GFR (Non-Af Amer) BUN/Creatinine Ratio (10-20) Glucose (70-99) mg/dl Lactate 3.1 H* (0.4-2.0) mmol/L Calcium (8.5-10.1) mg/dl Phosphorus (2.5-4.9) mg/dl Magnesium (1.8-2.4) mg/dl Total Bilirubin (0.2-1) mg/dl AST (15-37) U/L ALT (12-78) U/L Alkaline Phosphatase (45-117) U/L Ammonia (11-32) umol/L Troponin I (0-0.045) ng/ml NT-Pro-B Natriuret Pep (0-1800) pg/ml Total Protein (6.4-8.2) gm/dl Albumin (3.4-5.0) gm/dl Globulin (2.5-4.0) gm/dl Albumin/Globulin Ratio (0.9-2) Procalcitonin (0-0.5) ng/ml TSH (0.300-4.500) uIu/ml Urine Color Urine Appearance (Clear) Urine pH (4.5-7.5) Ur Specific [place] (1.000-1.030) Urine Protein (Negative) Urine Glucose (UA) (Negative) Urine Ketones (Negative) Urine Blood (Negative) Urine Nitrite (Negative) Urine Bilirubin (Negative) Urine Urobilinogen (Negative) Ur Leukocyte Esterase (Negative) Urine RBC (0-4) /hpf Urine WBC (0-5) /hpf Ur Epithelial Cells (0-5) /lpf Urine Bacteria (Negative) Hyaline Casts (0-5) /lpf Granular Casts (0) /lpf Influenza Type A (PCR) (Neg) Influenza Type B (PCR) (Neg) 06/22/19 06/22/19 06/22/19 Range/Units 02:24 02:24 02:24 WBC (4.8-10.8) K/uL RBC (4.2-5.4) M/uL Hgb (12.0-16.0) g/dL Hct (37-47) % MCV (80-100) fL MCH (25-34) pg MCHC (32-36) g/dL RDW Std Deviation (36.4-46.3) fL RDW Coeff of Gillian (11.5-14.5) % Plt Count (130-400) K/uL MPV (7.4-10.4) fL Immature Gran % (Auto) % Neut % (Auto) % Lymph % (Auto) % [place] % (Auto) % Eos % (Auto) % Baso % (Auto) % Immature Gran # (Auto) (0.00-0.02) K/uL Neut # (Auto) (1.4-6.5) K/uL Lymph # (Auto) (1.2-3.4) K/uL [place] # (Auto) (0.11-0.59) K/uL Eos # (Auto) (0-0.5) K/uL Baso # (Auto) (0-0.2) K/uL Neutrophils % (Manual) % Lymphocytes % (Manual) % Neutrophils # (Manual) (1.4-6.5) K/uL Total Absolute Neuts (1.4-6.5) K/uL Lymphocytes # (Manual) (1.2-3.4) K/uL Total Abs Lymphocytes (1.2-3.4) K/uL Toxic Vacuolation Dohle Bodies Echinocytes PT (9.0-12.0) Seconds INR (0.9-1.1) APTT (21.0-31.0) Seconds PTT Ratio ABG pH (7.35-7.45) ABG pCO2 (35-46) mmHg ABG pO2 (80-95) mm/Hg ABG HCO3 (19-24) mmol/L ABG O2 Saturation (90-95) % ABG Base Excess (-9-1.8) mEq/L Abhilash Test (Pos) VBG pH (7.36-7.41) VBG pCO2 (38-50) mmHg VBG pO2 mmHg VBG HCO3 mmol/L VBG O2 Saturation % VBG Base Excess mEq/L Barometric Pressure mm/Hg Oxygen Given Sodium 138 (136-145) mmol/L Potassium 4.0 (3.5-5.1) mmol/L Chloride 110 H (98-107) mmol/L Carbon Dioxide 22 (21-32) mmol/L Anion Gap 6.0 (3-11) BUN 28 H (7-18) mg/dl Creatinine 0.99 (0.6-1.2) mg/dl Est Cr Clr Drug Dosing 35.8 ml/min Est GFR ( Amer) 62.4 Est GFR (Non-Af Amer) 53.8 BUN/Creatinine Ratio 28.5 H (10-20) Glucose 234 H (70-99) mg/dl Lactate 2.8 H* (0.4-2.0) mmol/L Calcium 7.9 L D (8.5-10.1) mg/dl Phosphorus (2.5-4.9) mg/dl Magnesium (1.8-2.4) mg/dl Total Bilirubin 0.9 (0.2-1) mg/dl AST 487 H (15-37) U/L ALT 434 H (12-78) U/L Alkaline Phosphatase 84 (45-117) U/L Ammonia < 10.0 L (11-32) umol/L Troponin I (0-0.045) ng/ml NT-Pro-B Natriuret Pep (0-1800) pg/ml Total Protein 6.0 L D (6.4-8.2) gm/dl Albumin 2.4 L (3.4-5.0) gm/dl Globulin 3.6 (2.5-4.0) gm/dl Albumin/Globulin Ratio 0.7 L (0.9-2) Procalcitonin (0-0.5) ng/ml TSH (0.300-4.500) uIu/ml Urine Color Urine Appearance (Clear) Urine pH (4.5-7.5) Ur Specific [place] (1.000-1.030) Urine Protein (Negative) Urine Glucose (UA) (Negative) Urine Ketones (Negative) Urine Blood (Negative) Urine Nitrite (Negative) Urine Bilirubin (Negative) Urine Urobilinogen (Negative) Ur Leukocyte Esterase (Negative) Urine RBC (0-4) /hpf Urine WBC (0-5) /hpf Ur Epithelial Cells (0-5) /lpf Urine Bacteria (Negative) Hyaline Casts (0-5) /lpf Granular Casts (0) /lpf Influenza Type A (PCR) (Neg) Influenza Type B (PCR) (Neg) 06/22/19 06/21/19 06/21/19 Range/Units 02:24 23:18 22:26 WBC 13.28 H D (4.8-10.8) K/uL RBC 3.36 L (4.2-5.4) M/uL Hgb 10.8 L (12.0-16.0) g/dL Hct 31.9 L (37-47) % MCV 94.9 (80-100) fL MCH 32.1 (25-34) pg MCHC 33.9 (32-36) g/dL RDW Std Deviation 51.8 H (36.4-46.3) fL RDW Coeff of Gillian 15.1 H (11.5-14.5) % Plt Count 106 L (130-400) K/uL MPV 11.4 H (7.4-10.4) fL Immature Gran % (Auto) % Neut % (Auto) % Lymph % (Auto) % [place] % (Auto) % Eos % (Auto) % Baso % (Auto) % Immature Gran # (Auto) (0.00-0.02) K/uL Neut # (Auto) (1.4-6.5) K/uL Lymph # (Auto) (1.2-3.4) K/uL [place] # (Auto) (0.11-0.59) K/uL Eos # (Auto) (0-0.5) K/uL Baso # (Auto) (0-0.2) K/uL Neutrophils % (Manual) 98.3 % Lymphocytes % (Manual) 1.7 % Neutrophils # (Manual) 13.05 H (1.4-6.5) K/uL Total Absolute Neuts 13.05 H (1.4-6.5) K/uL Lymphocytes # (Manual) 0.23 L (1.2-3.4) K/uL Total Abs Lymphocytes 0.23 L (1.2-3.4) K/uL Toxic Vacuolation 2+ Dohle Bodies 2+ Echinocytes 1+ PT (9.0-12.0) Seconds INR (0.9-1.1) APTT (21.0-31.0) Seconds PTT Ratio ABG pH (7.35-7.45) ABG pCO2 (35-46) mmHg ABG pO2 (80-95) mm/Hg ABG HCO3 (19-24) mmol/L ABG O2 Saturation (90-95) % ABG Base Excess (-9-1.8) mEq/L Abhilash Test (Pos) VBG pH (7.36-7.41) VBG pCO2 (38-50) mmHg VBG pO2 mmHg VBG HCO3 mmol/L VBG O2 Saturation % VBG Base Excess mEq/L Barometric Pressure mm/Hg Oxygen Given Sodium (136-145) mmol/L Potassium (3.5-5.1) mmol/L Chloride (98-107) mmol/L Carbon Dioxide (21-32) mmol/L Anion Gap (3-11) BUN (7-18) mg/dl Creatinine (0.6-1.2) mg/dl Est Cr Clr Drug Dosing ml/min Est GFR ( Amer) Est GFR (Non-Af Amer) BUN/Creatinine Ratio (10-20) Glucose (70-99) mg/dl Lactate 4.0 H* (0.4-2.0) mmol/L Calcium (8.5-10.1) mg/dl Phosphorus (2.5-4.9) mg/dl Magnesium (1.8-2.4) mg/dl Total Bilirubin (0.2-1) mg/dl AST (15-37) U/L ALT (12-78) U/L Alkaline Phosphatase (45-117) U/L Ammonia (11-32) umol/L Troponin I (0-0.045) ng/ml NT-Pro-B Natriuret Pep (0-1800) pg/ml Total Protein (6.4-8.2) gm/dl Albumin (3.4-5.0) gm/dl Globulin (2.5-4.0) gm/dl Albumin/Globulin Ratio (0.9-2) Procalcitonin (0-0.5) ng/ml TSH (0.300-4.500) uIu/ml Urine Color Urine Appearance (Clear) Urine pH (4.5-7.5) Ur Specific [place] (1.000-1.030) Urine Protein (Negative) Urine Glucose (UA) (Negative) Urine Ketones (Negative) Urine Blood (Negative) Urine Nitrite (Negative) Urine Bilirubin (Negative) Urine Urobilinogen (Negative) Ur Leukocyte Esterase (Negative) Urine RBC (0-4) /hpf Urine WBC (0-5) /hpf Ur Epithelial Cells (0-5) /lpf Urine Bacteria (Negative) Hyaline Casts (0-5) /lpf Granular Casts (0) /lpf Influenza Type A (PCR) Neg for Influ A (Neg) Influenza Type B (PCR) Neg for Influ B (Neg) 06/21/19 06/21/19 06/21/19 Range/Units 21:31 21:31 21:12 WBC (4.8-10.8) K/uL RBC (4.2-5.4) M/uL Hgb (12.0-16.0) g/dL Hct (37-47) % MCV (80-100) fL MCH (25-34) pg MCHC (32-36) g/dL RDW Std Deviation (36.4-46.3) fL RDW Coeff of Gillian (11.5-14.5) % Plt Count (130-400) K/uL MPV (7.4-10.4) fL Immature Gran % (Auto) % Neut % (Auto) % Lymph % (Auto) % [place] % (Auto) % Eos % (Auto) % Baso % (Auto) % Immature Gran # (Auto) (0.00-0.02) K/uL Neut # (Auto) (1.4-6.5) K/uL Lymph # (Auto) (1.2-3.4) K/uL [place] # (Auto) (0.11-0.59) K/uL Eos # (Auto) (0-0.5) K/uL Baso # (Auto) (0-0.2) K/uL Neutrophils % (Manual) % Lymphocytes % (Manual) % Neutrophils # (Manual) (1.4-6.5) K/uL Total Absolute Neuts (1.4-6.5) K/uL Lymphocytes # (Manual) (1.2-3.4) K/uL Total Abs Lymphocytes (1.2-3.4) K/uL Toxic Vacuolation Dohle Bodies Echinocytes PT (9.0-12.0) Seconds INR (0.9-1.1) APTT (21.0-31.0) Seconds PTT Ratio ABG pH (7.35-7.45) ABG pCO2 (35-46) mmHg ABG pO2 (80-95) mm/Hg ABG HCO3 (19-24) mmol/L ABG O2 Saturation (90-95) % ABG Base Excess (-9-1.8) mEq/L Abhilash Test (Pos) VBG pH 7.40 (7.36-7.41) VBG pCO2 42 (38-50) mmHg VBG pO2 28 mmHg VBG HCO3 26 mmol/L VBG O2 Saturation < 60.0 % VBG Base Excess 0.6 mEq/L Barometric Pressure 737.0 mm/Hg Oxygen Given Sodium (136-145) mmol/L Potassium (3.5-5.1) mmol/L Chloride (98-107) mmol/L Carbon Dioxide (21-32) mmol/L Anion Gap (3-11) BUN (7-18) mg/dl Creatinine (0.6-1.2) mg/dl Est Cr Clr Drug Dosing ml/min Est GFR ( Amer) Est GFR (Non-Af Amer) BUN/Creatinine Ratio (10-20) Glucose (70-99) mg/dl Lactate 2.6 H* (0.4-2.0) mmol/L Calcium (8.5-10.1) mg/dl Phosphorus (2.5-4.9) mg/dl Magnesium (1.8-2.4) mg/dl Total Bilirubin (0.2-1) mg/dl AST (15-37) U/L ALT (12-78) U/L Alkaline Phosphatase (45-117) U/L Ammonia (11-32) umol/L Troponin I (0-0.045) ng/ml NT-Pro-B Natriuret Pep (0-1800) pg/ml Total Protein (6.4-8.2) gm/dl Albumin (3.4-5.0) gm/dl Globulin (2.5-4.0) gm/dl Albumin/Globulin Ratio (0.9-2) Procalcitonin (0-0.5) ng/ml TSH (0.300-4.500) uIu/ml Urine Color Yellow Urine Appearance Cloudy A (Clear) Urine pH 5.5 (4.5-7.5) Ur Specific [place] >= 1.030 (1.000-1.030) Urine Protein 3+ H (Negative) Urine Glucose (UA) Trace H (Negative) Urine Ketones Trace H (Negative) Urine Blood 3+ H (Negative) Urine Nitrite Negative (Negative) Urine Bilirubin Negative (Negative) Urine Urobilinogen Negative (Negative) Ur Leukocyte Esterase Negative (Negative) Urine RBC 0-4 (0-4) /hpf Urine WBC 5-10 H (0-5) /hpf Ur Epithelial Cells 5-10 H (0-5) /lpf Urine Bacteria 1+ H (Negative) Hyaline Casts 0-5 (0-5) /lpf Granular Casts 10-20 H (0) /lpf Influenza Type A (PCR) (Neg) Influenza Type B (PCR) (Neg) 06/21/19 06/21/19 06/21/19 Range/Units 20:35 20:35 20:35 WBC (4.8-10.8) K/uL RBC (4.2-5.4) M/uL Hgb (12.0-16.0) g/dL Hct (37-47) % MCV (80-100) fL MCH (25-34) pg MCHC (32-36) g/dL RDW Std Deviation (36.4-46.3) fL RDW Coeff of Gillian (11.5-14.5) % Plt Count (130-400) K/uL MPV (7.4-10.4) fL Immature Gran % (Auto) % Neut % (Auto) % Lymph % (Auto) % [place] % (Auto) % Eos % (Auto) % Baso % (Auto) % Immature Gran # (Auto) (0.00-0.02) K/uL Neut # (Auto) (1.4-6.5) K/uL Lymph # (Auto) (1.2-3.4) K/uL [place] # (Auto) (0.11-0.59) K/uL Eos # (Auto) (0-0.5) K/uL Baso # (Auto) (0-0.2) K/uL Neutrophils % (Manual) % Lymphocytes % (Manual) % Neutrophils # (Manual) (1.4-6.5) K/uL Total Absolute Neuts (1.4-6.5) K/uL Lymphocytes # (Manual) (1.2-3.4) K/uL Total Abs Lymphocytes (1.2-3.4) K/uL Toxic Vacuolation Dohle Bodies Echinocytes PT 11.9 (9.0-12.0) Seconds INR 1.2 H (0.9-1.1) APTT 34.3 H (21.0-31.0) Seconds PTT Ratio 1.3 ABG pH (7.35-7.45) ABG pCO2 (35-46) mmHg ABG pO2 (80-95) mm/Hg ABG HCO3 (19-24) mmol/L ABG O2 Saturation (90-95) % ABG Base Excess (-9-1.8) mEq/L Abhilash Test (Pos) VBG pH (7.36-7.41) VBG pCO2 (38-50) mmHg VBG pO2 mmHg VBG HCO3 mmol/L VBG O2 Saturation % VBG Base Excess mEq/L Barometric Pressure mm/Hg Oxygen Given Sodium 133 L (136-145) mmol/L Potassium 4.4 (3.5-5.1) mmol/L Chloride 99 (98-107) mmol/L Carbon Dioxide 24 (21-32) mmol/L Anion Gap 9.0 (3-11) BUN 35 H (7-18) mg/dl Creatinine 1.24 H (0.6-1.2) mg/dl Est Cr Clr Drug Dosing 28.6 ml/min Est GFR ( Amer) 47.5 Est GFR (Non-Af Amer) 41.0 BUN/Creatinine Ratio 28.3 H (10-20) Glucose 158 H (70-99) mg/dl Lactate (0.4-2.0) mmol/L Calcium 9.3 (8.5-10.1) mg/dl Phosphorus 1.7 L (2.5-4.9) mg/dl Magnesium 2.3 (1.8-2.4) mg/dl Total Bilirubin 0.8 (0.2-1) mg/dl AST 430 H (15-37) U/L ALT 442 H (12-78) U/L Alkaline Phosphatase 107 (45-117) U/L Ammonia (11-32) umol/L Troponin I < 0.015 (0-0.045) ng/ml NT-Pro-B Natriuret Pep 4796 H (0-1800) pg/ml Total Protein 7.8 (6.4-8.2) gm/dl Albumin 3.2 L (3.4-5.0) gm/dl Globulin 4.6 H (2.5-4.0) gm/dl Albumin/Globulin Ratio 0.7 L (0.9-2) Procalcitonin 47.75 H (0-0.5) ng/ml TSH 0.401 (0.300-4.500) uIu/ml Urine Color Urine Appearance (Clear) Urine pH (4.5-7.5) Ur Specific [place] (1.000-1.030) Urine Protein (Negative) Urine Glucose (UA) (Negative) Urine Ketones (Negative) Urine Blood (Negative) Urine Nitrite (Negative) Urine Bilirubin (Negative) Urine Urobilinogen (Negative) Ur Leukocyte Esterase (Negative) Urine RBC (0-4) /hpf Urine WBC (0-5) /hpf Ur Epithelial Cells (0-5) /lpf Urine Bacteria (Negative) Hyaline Casts (0-5) /lpf Granular Casts (0) /lpf Influenza Type A (PCR) (Neg) Influenza Type B (PCR) (Neg) 06/21/19 Range/Units 20:35 WBC 26.61 H (4.8-10.8) K/uL RBC 4.02 L (4.2-5.4) M/uL Hgb 13.1 (12.0-16.0) g/dL Hct 38.3 (37-47) % MCV 95.3 (80-100) fL MCH 32.6 (25-34) pg MCHC 34.2 (32-36) g/dL RDW Std Deviation 52.8 H (36.4-46.3) fL RDW Coeff of Gillian 15.0 H (11.5-14.5) % Plt Count 153 (130-400) K/uL MPV 12.8 H (7.4-10.4) fL Immature Gran % (Auto) 1.8 % Neut % (Auto) 87.0 % Lymph % (Auto) 2.0 % [place] % (Auto) 9.1 % Eos % (Auto) 0.0 % Baso % (Auto) 0.1 % Immature Gran # (Auto) 0.49 H (0.00-0.02) K/uL Neut # (Auto) 23.16 H (1.4-6.5) K/uL Lymph # (Auto) 0.52 L (1.2-3.4) K/uL [place] # (Auto) 2.41 H (0.11-0.59) K/uL Eos # (Auto) 0.01 (0-0.5) K/uL Baso # (Auto) 0.02 (0-0.2) K/uL Neutrophils % (Manual) % Lymphocytes % (Manual) % Neutrophils # (Manual) (1.4-6.5) K/uL Total Absolute Neuts (1.4-6.5) K/uL Lymphocytes # (Manual) (1.2-3.4) K/uL Total Abs Lymphocytes (1.2-3.4) K/uL Toxic Vacuolation Dohle Bodies Echinocytes 1+ PT (9.0-12.0) Seconds INR (0.9-1.1) APTT (21.0-31.0) Seconds PTT Ratio ABG pH (7.35-7.45) ABG pCO2 (35-46) mmHg ABG pO2 (80-95) mm/Hg ABG HCO3 (19-24) mmol/L ABG O2 Saturation (90-95) % ABG Base Excess (-9-1.8) mEq/L Abhilash Test (Pos) VBG pH (7.36-7.41) VBG pCO2 (38-50) mmHg VBG pO2 mmHg VBG HCO3 mmol/L VBG O2 Saturation % VBG Base Excess mEq/L Barometric Pressure mm/Hg Oxygen Given Sodium (136-145) mmol/L Potassium (3.5-5.1) mmol/L Chloride (98-107) mmol/L Carbon Dioxide (21-32) mmol/L Anion Gap (3-11) BUN (7-18) mg/dl Creatinine (0.6-1.2) mg/dl Est Cr Clr Drug Dosing ml/min Est GFR ( Amer) Est GFR (Non-Af Amer) BUN/Creatinine Ratio (10-20) Glucose (70-99) mg/dl Lactate (0.4-2.0) mmol/L Calcium (8.5-10.1) mg/dl Phosphorus (2.5-4.9) mg/dl Magnesium (1.8-2.4) mg/dl Total Bilirubin (0.2-1) mg/dl AST (15-37) U/L ALT (12-78) U/L Alkaline Phosphatase (45-117) U/L Ammonia (11-32) umol/L Troponin I (0-0.045) ng/ml NT-Pro-B Natriuret Pep (0-1800) pg/ml Total Protein (6.4-8.2) gm/dl Albumin (3.4-5.0) gm/dl Globulin (2.5-4.0) gm/dl Albumin/Globulin Ratio (0.9-2) Procalcitonin (0-0.5) ng/ml TSH (0.300-4.500) uIu/ml Urine Color Urine Appearance (Clear) Urine pH (4.5-7.5) Ur Specific [place] (1.000-1.030) Urine Protein (Negative) Urine Glucose (UA) (Negative) Urine Ketones (Negative) Urine Blood (Negative) Urine Nitrite (Negative) Urine Bilirubin (Negative) Urine Urobilinogen (Negative) Ur Leukocyte Esterase (Negative) Urine RBC (0-4) /hpf Urine WBC (0-5) /hpf Ur Epithelial Cells (0-5) /lpf Urine Bacteria (Negative) Hyaline Casts (0-5) /lpf Granular Casts (0) /lpf Influenza Type A (PCR) (Neg) Influenza Type B (PCR) (Neg)
[2019-06-22] MEDS ORDERED: CONSULT PHARMACY STA (10:15)
[2019-06-22] MEDS ORDERED: VANCOMYCIN CONSULT ACTIVE PRN (10:20)
[2019-06-22] MEDS ORDERED: VANCOMYCIN HCL 1,250 MG in SODIUM CHLORIDE 0.9% 250 ML IV ONE (10:30)
--- NOTE | 2019-06-22 11:36 | Pharmacy Report ---
Pharmacy Abx Initial Consult - Date of Service June 22, 2019 - Pharmacy Dosing Scope Date of Consult: 06/22 Consultation requested by: Dr. Lopez Pharmacy is consulted to initiate Vancomycin/Zosyn IV/PO dosing therapy, order appropriate labs and adjust drug dose/frequency. - Subjective The patient is a 79 year old F admitted on 06/22/19 01:46. - Objective Height: 5 ft 2 in Weight: 57 kg Vital Signs (Past 12hrs): Vital Signs Temp Pulse Pulse Resp BP BP BP 06/22/19 09:33 37.2 C 06/22/19 09:08 108 H 06/22/19 08:26 143 H 06/22/19 08:00 109 H 06/22/19 07:46 38.0 C H 111 H 18 154/81 H 06/22/19 06:45 147 H 14 168/95 H 06/22/19 05:50 139 H 16 174/104 H 06/22/19 04:16 134 H 161/110 H 06/22/19 03:25 140 H 06/22/19 03:10 136 H 06/22/19 02:41 36.8 C 138 H 22 150/81 H 06/22/19 02:00 137 H 22 117/74 06/22/19 01:30 141 H 20 123/74 06/22/19 01:03 37.0 C 06/22/19 01:02 132 H 26 H 121/76 06/22/19 00:30 124 H 25 H 95/74 L 06/22/19 00:21 128 H 06/22/19 00:00 143 H 25 H 88/58 L 06/21/19 23:55 144 H 105/62 06/21/19 23:30 140 H 18 105/62 Pulse Ox 06/22/19 09:33 06/22/19 09:08 06/22/19 08:26 06/22/19 08:00 06/22/19 07:46 92 06/22/19 06:45 06/22/19 05:50 06/22/19 04:16 06/22/19 03:25 06/22/19 03:10 06/22/19 02:41 96 06/22/19 02:00 96 06/22/19 01:30 95 06/22/19 01:03 06/22/19 01:02 93 06/22/19 00:30 94 06/22/19 00:21 06/22/19 00:00 96 06/21/19 23:55 06/21/19 23:30 97 Lab Results (24hrs): Laboratory Tests (24 Hours) 06/22/19 06/22/19 06/21/19 02:24 02:24 20:35 WBC 13.28 H D Neut # (Auto) Creatinine 0.99 Est Cr Clr Drug Dosing 35.8 Procalcitonin 47.75 H 06/21/19 06/21/19 20:35 20:35 WBC 26.61 H Neut # (Auto) 23.16 H Creatinine 1.24 H Est Cr Clr Drug Dosing 28.6 Procalcitonin Micro Results: 06/21/19 21:31 Aerobic Blood Culture - Pending Blood 06/21/19 21:38 Aerobic Blood Culture - Pending Blood 06/21/19 21:12 Urine Culture - Pending Urine,Straight Cath - Assessment & Plan Assessment 79 year old F presented to the ED with weakness, fever, nausea, dizziness. Patient was febrile 38.9 in ED, elevated white count of 26.6. Patient received vancomycin/zosyn in the ED. Zosyn was continued on admission for suspected sepsis with urinary source. Today 2/2 blood cultures positive for G+ cocci, new consult for vancomycin. Initially entered new loading dose as previous dose in ED not seen. Using population kinetics, patient's level at time second infusion began ~20 mcg/mL which would be appropriate for new dose, however half life estimating ~20 hours. Therefore did have nurse stop infusion out of caution, ~40 minutes into infusion, this would have given ~400 mg dose (would expect ~10 mcg/mL increase in level). Will order random level for ~12 hours after this infusion. Will start 1000 mg q24H if this level is appropriate. Pharmacy will continue to follow and will adjust dose/frequency as necessary. Thank you.
[2019-06-22] MEDS: dilTIAZem HCl 125 MG in DEXTROSE 5% 100 ML IV SCH ×2 (11:51→20:03)
[2019-06-22] MEDS: PIPERACILLIN/TAZOBACTAM 3.375 GM in DEXTROSE 5% 100 ML IV SCH ×2 (11:51→19:40)
[2019-06-22] MEDS ORDERED: GLYCERIN ADULT 12 SUPP/BOX SUPP PR STA (12:37)
--- NOTE | 2019-06-22 13:24 | Hospitalist Progress Note ---
Date of Service June 22, 2019 Assessment & Plan (1) Gram positive septicemia: Uncertain source, recent dental infection described. No PCR performed on the blood yet. ID consult requested. Appears improved clinically. Vancomycin added today for empiric coverage. For empiric sepsis coverage in the setting of persistent abdominal pain with uncertain cause, changing Zosyn to Cefepime to avoid MARTINA. She is 4 L up today and had some increased SOB. Repeating CXR to investigate this further. (2) Atrial fibrillation with rapid ventricular response: as a result of infection and pain. She has been adequately volume resuscitated at this point. She is on metoprolol PO and diltiazem drip for rate control. Pain control efforts with Dilaudid x 1 dose. Also will start scheduled IV tylenol to give pain control without contributing to opioid-induced constipation. Cont heparin drip. Appreciate cardiology recommendations. (3) Abdominal pain: severe abdominal pain with worsened distension as the day progressed. Also with persistent worsened lactate. KUB reveals again increased fecal load, similar to CT. I discussed the case with the general surgeon transportation clerk who recommends repeat CT imaging with IV and PO contrast in addition to rectal contrast in the CT suite. No colonoscopy on file. New liver mass with a pulmonary nodule seen on initial imaging. Etiology is thought secondary to gas and distension from severe constipation, however, her clinical exam is giving concern that something more sinister is going on. NPO x meds. Trend lactate overnight. Of note, lactate normal, alkaline phos is normal, and bilirubin is normal. LFTs are persistently elevated thought secondary to possible mass effect from the liver mass. Cont supportive care for pain and nausea control as needed. (4) Constipation: Presumed opioid induced constipation as she takes tramadol scheduled at home. She has not had a BM in 4-5 days and is very uncomfortable. Cont Miralax scheduled q6h. Giving gastrograffin contrast with CT study this evening. Tap water enema was unsuccessful as she was unable to retain the enema. Consider Relistor overnight to help with BM and comfort in setting of recent scheduled tramadol. (5) Hypoxia: 2/2 fluid overload after sepsis resuscitation. Repeat CXR reveals increased congestion. Stopping IVF altogether. Cont oxygen supplementation for support. (6) Elevated lactic acid level: Recent septicemia with unclear source. Also with abdominal pain that is worsening. Will trend overnight. (7) Liver mass: Will require dedicated liver imaging which will be worked up further when she is more stable clinically. GI has been consulted. (8) DVT prophylaxis: Heparin drip Full Code Dispo-uncertain, still very ill. Updated her significant other who is at the bedside tonight. Aga Lopez DO [facility] Hospitalist Subjective 79-year-old female presented with severe weakness fevers loss of appetite and nausea which was abnormal for her. She was found to have sepsis with an underlying gram-positive bacteremia with unclear source. She converted into atrial for ablation with RVR which was a new diagnosis for her overnight likely secondary to her sepsis infection. She was started on vancomycin and Zosyn and given IV fluids appropriately. She was also given Lopressor, digoxin, diltiazem overnight and efforts to control her rate which was anywhere from 120 to 150 bpm. Cardiology placed her on a Cardizem drip. On my examination the patient she reports that she has severe abdominal pain and frequently she was experiencing such episodes of sharp intermittent pain that would catch her and cause her to yelp. She reports not having a bowel movement for 4 to 5 days which is abnormal for her. She does takes chronic tramadol for pain of her foot. She has moderate fecal load on CT imaging of her abdomen overnight. Attempts were made to use a suppository and an enema but she was unable to retain the enema the suppository was ineffective. We will continue scheduled MiraLAX and tap water enema as tolerated until patient is having BMs. GI is consulted and will also weigh in in the morning. I examined her multiple times throughout the day performing serial abdominal exams on her. Abdominal distension worse as day progressed. Suppository, Miralax PO and tap water enema ineffective. Still tachycardic despite max diltiazem. Discomfort is real, she is writhing in pain describing the pain as suprapubic and like a bloating. Review of Systems Review of Systems: All systems reviewed & are unremarkable except as noted in HPI & below Physical Exam Physical Exam: CONSTITUTIONAL: WNWD, vitals as above, generally well- appearing with periods of distress 2/2 pain EYES: normal conjunctivae, no scleral icterus ENT: external ear and nose normal, oropharynx clear, MMM RESPIRATORY: clear to auscultation bilaterally, no crackles, rales or wheezes, normal respiratory effort CARDIOVASCULAR: regular rate and rhythm, S1 and 2 heard without murmurs, gallops or rubs, no JVD, no peripheral edema GASTROINTESTINAL: abdomen is distended and somewhat tender, hui in suprapubic region MUSCULOSKELETAL: strength 5/5 throughout, head is normocephalic and atraumatic SKIN: warm and dry NEUROLOGIC: CN 2-12 grossly intact, normal cognition, normal speech, no gross focal deficits. PSYCHIATRIC: alert cooperative and oriented to person, place and time. Results & Data Vital Signs (Past 12 Hours) Vital Signs Temp Pulse Pulse Resp BP BP BP 06/22/19 13:15 36.7 C 142 H 20 122/82 06/22/19 12:36 137 H 126/85 06/22/19 12:15 140 H 132/78 06/22/19 12:00 136 H 135/86 06/22/19 11:50 36.9 C 140 H 20 140/86 06/22/19 09:33 37.2 C 06/22/19 09:08 108 H 06/22/19 08:26 143 H 06/22/19 08:00 109 H 06/22/19 07:46 38.0 C H 111 H 18 154/81 H 06/22/19 06:45 147 H 14 168/95 H 06/22/19 05:50 139 H 16 174/104 H 06/22/19 04:16 134 H 161/110 H 06/22/19 03:25 140 H 06/22/19 03:10 136 H 06/22/19 02:41 36.8 C 138 H 22 150/81 H 06/22/19 02:00 137 H 22 117/74 06/22/19 01:30 141 H 20 123/74 Pulse Ox 06/22/19 13:15 96 06/22/19 12:36 06/22/19 12:15 06/22/19 12:00 06/22/19 11:50 96 06/22/19 09:33 06/22/19 09:08 06/22/19 08:26 06/22/19 08:00 06/22/19 07:46 92 06/22/19 06:45 06/22/19 05:50 06/22/19 04:16 06/22/19 03:25 06/22/19 03:10 06/22/19 02:41 96 06/22/19 02:00 96 06/22/19 01:30 95 Laboratory Results Short CBC 06/21/19 06/22/19 Range/Units 20:35 02:24 WBC 26.61 H 13.28 H D (4.8-10.8) K/uL Hgb 13.1 10.8 L (12.0-16.0) g/dL Hct 38.3 31.9 L (37-47) % Plt Count 153 106 L (130-400) K/uL BMP 06/21/19 06/22/19 20:35 02:24 Sodium 133 L 138 Potassium 4.4 4.0 Chloride 99 110 H Carbon Dioxide 24 22 BUN 35 H 28 H Creatinine 1.24 H 0.99 Glucose 158 H 234 H Calcium 9.3 7.9 L D Cardiac Enzymes 06/21/19 Range/Units 20:35 Troponin I < 0.015 (0-0.045) ng/ml Liver Function 06/21/19 06/22/19 Range/Units 20:35 02:24 Total Bilirubin 0.8 0.9 (0.2-1) mg/dl AST 430 H 487 H (15-37) U/L ALT 442 H 434 H (12-78) U/L Alkaline Phosphatase 107 84 (45-117) U/L Albumin 3.2 L 2.4 L (3.4-5.0) gm/dl Urine 06/21/19 Range/Units 21:12 Urine Color Yellow Urine Appearance Cloudy A (Clear) Urine pH 5.5 (4.5-7.5) Ur Specific [place] >= 1.030 (1.000-1.030) Urine Protein 3+ H (Negative) Urine Glucose (UA) Trace H (Negative) Medications Administered Current Inpatient Medications Acetaminophen (Tylenol) 325 mg PO Q6H PRN PRN Reason: Pain or Fever Stop: 07/22/19 02:57 Last Admin: 06/22/19 08:26 Dose: 325 mg Documented by: Aspirin (Ecotrin Ectab) 81 mg PO DAILY [facility] Stop: 07/22/19 08:59 Last Admin: 06/22/19 08:27 Dose: 81 mg Documented by: Atorvastatin Calcium (Lipitor) 40 mg PO QAM [facility] Stop: 07/22/19 08:59 Last Admin: 06/22/19 08:28 Dose: 40 mg Documented by: Diltiazem HCl (Tiazac) 120 mg PO QAM [facility] Stop: 07/22/19 01:29 Last Admin: 06/22/19 02:28 Dose: 120 mg Documented by: Hydromorphone HCl (Dilaudid) 0.5 mg IV Q3H PRN PRN Reason: Pain Stop: 07/06/19 04:21 Lactated Ringer's (Lr) 1,000 mls @ 200 mls/hr IV .Q5H ANDREW Stop: 06/22/19 15:00 Last Admin: 06/22/19 10:55 Dose: 200 mls/hr Documented by: Heparin Sodium/Dextrose (Heparin Sodium/Dextrose) 25,000 units in 500 mls @ 19 mls/hr IV .Q24H [facility]; Protocol Stop: 07/22/19 01:44 Last Admin: 06/22/19 02:00 Dose: 950 units/hr, 19 mls/hr Documented by: Promethazine HCl 12.5 mg/ (Sodium Chloride) 50.5 mls @ 202 mls/hr IV Q6H PRN PRN Reason: Nausea And Vomiting Stop: 07/22/19 02:57 Piperacillin Sod/Tazobactam (Sod 3.375 gm/ Dextrose) 115 mls @ 28.75 mls/hr IV Q8H [facility]; Protocol Stop: 07/02/19 11:59 Last Admin: 06/22/19 11:51 Dose: 28.8 mls/hr Documented by: Diltiazem HCl 125 mg/ Dextrose 125 mls @ 10 mls/hr IV .[id number] [facility]; Protocol Stop: 07/22/19 11:29 Last Titration: 06/22/19 13:17 Dose: 10 mg/hr, 10 mls/hr Documented by: Metoprolol Succinate (Toprol Xl) 50 mg PO DAILY [facility] Stop: 07/22/19 04:29 Last Admin: 06/22/19 05:53 Dose: 50 mg Documented by: Miscellaneous Information (Consult) 1 ea N/A UD PRN PRN Reason: Consult Stop: 07/21/19 22:01 Miscellaneous Information (Consult) 1 ea N/A UD PRN PRN Reason: Consult Stop: 07/22/19 10:19 Montelukast Sodium (Singulair) 10 mg PO QAM ANDREW Stop: 07/22/19 08:59 Last Admin: 06/22/19 08:28 Dose: 10 mg Documented by: Nitroglycerin (Nitrostat) 0.4 mg SL UD PRN PRN Reason: Chest Pain Stop: 07/22/19 02:57 Fluticasone/Salmeterol (Advair Diskus 500/50) 1 puffs INH BID ANDREW Stop: 07/22/19 08:59 Last Admin: 06/22/19 08:27 Dose: 1 puffs Documented by: Tramadol HCl (Ultram) 25 mg PO Q8H PRN PRN Reason: Pain Stop: 07/22/19 02:57 Last Admin: 06/22/19 10:53 Dose: 25 mg Documented by:
[2019-06-22] MEDS: POLYETHYLENE (MIRALAX) 17 GM PACK PO SCH ×2 (16:07→23:45)
--- NOTE | 2019-06-22 18:58 | XRay Report ---
KUB HISTORY: Acute generalized abdominal pain with abdominal distention worsening abdominal pain, abd di stension COMPARISON: CT abdomen and pelvis 06/21/2019 FINDINGS: Gas-filled loops of large and small bowel are noted within the left abdomen. Mild to modera te fecal retention. There is no organomegaly. No renal calculi. No ureteral calculi. No pneumoperito neum or pneumatosis. Degenerative changes of the spine, pelvis and hips. No fracture. IMPRESSION: 1. Nonobstructive bowel gas pattern. 2. Mildly prominent gas-filled loops of large and small bowel within the left midabdomen are likely p hysiologic. 3. Mild to moderate fecal retention. Electronically signed by: Benito Bob M.D. 06/22/2019 6:56 PM
[2019-06-22 19:16] LABS: Albumin Level 2.1 gm/dl (3.4-5.0); BUN Creatinine Ratio 22.7 (10-20); Calcium 8.6 mg/dl (8.5-10.1); Creatinine Clr Calc Pharmacy 43.3 ml/min; Est GFR (African American) 78.3; Est GFR (Non-African American) 67.6; Potassium 3.5 mmol/L (3.5-5.1)
[2019-06-22] MEDS ORDERED: ALBUT/IPRATROP 3MG/0.5MG NEB 3 ML VIAL NEB PRN (19:17)
[2019-06-22 19:18] LABS: Albumin Globulin Ratio 0.5 (0.9-2); Bilirubin,Total 0.8 mg/dl (0.2-1); Total Protein 6.1 gm/dl (6.4-8.2)
[2019-06-22 19:33] LABS: Hematocrit (blood only) 39.8 % (37-47); Hemoglobin 13.4 g/dL (12.0-16.0); Mean Corpuscular Hemoglobin 32.2 pg (25-34); Mean Corpuscular Hgb Conc 33.7 g/dL (32-36); Mean Corpuscular Volume 95.7 fL (80-100); Mean Platelet Volume 12.4 fL (7.4-10.4); Platelet Count 115 K/uL (130-400); RDW Coefficient of Variation 15.6 % (11.5-14.5); RDW Standard Deviation 55.1 fL (36.4-46.3); Red Blood Count 4.16 M/uL (4.2-5.4); White Blood Count 12.79 K/uL (4.8-10.8)
[2019-06-22] MEDS ORDERED: SODIUM CHLORIDE 0.9% 1000ML 1,000 ML IV SCH (20:00)
[2019-06-22] MEDS ORDERED: CEFEPIME CONSULT ACTIVE PRN (20:20)
[2019-06-22 20:24] LABS: ALC (manual) 1.02 K/uL (1.2-3.4); ANC (manual) 11.26 K/uL (1.4-6.5); Dohle Bodies 1+; Echinocytes 2+; Lymphocytes # (manual) 1.02 K/uL (1.2-3.4); Metamyelocytes # (manual) 0.26 K/uL (0-0); Monocytes # (manual) 0.26 K/uL (0.11-0.59); Neutrophils # (manual) 11.26 K/uL (1.4-6.5)
[2019-06-22] MEDS ORDERED: LORazepam 0.25 MG/0.5 ML VIAL IV PRN (20:36)
--- NOTE | 2019-06-22 20:40 | XRay Report ---
XR chest 1V portable HISTORY: 79 years-old Female increased SOB after sepsis resuscitation acute shortness of breath with sepsis COMPARISON: Chest radiograph and CTA chest 06/21/2019 TECHNIQUE: Portable AP view of the chest FINDINGS: Cardiac silhouette is upper limits of normal in size. Calcified plaque the thoracic aortic arch. Emph ysema with mild interstitial coarsening. No pneumothorax or large pleural effusion. Mildly progressiv e right greater than left bibasilar opacities. Suggestion of trace pleural effusions. Degenerative ch anges of the shoulders and spine. Mild pulmonary vascular congestion. IMPRESSION: 1. Mild pulmonary vascular congestion with probable trace pleural effusions. 2. Mildly progressed right greater than left bibasilar opacities suggestive of atelectasis or pneumon itis. 3. Emphysema. The above report was generated using voice recognition software. It may contain grammatical, syntax o r spelling errors. Electronically signed by: Benito Bob M.D. 06/22/2019 8:38 PM
[2019-06-22] MEDS ORDERED: METOPROLOL TARTRATE 25 MG TAB PO STA (20:55)
[2019-06-22] MEDS: ACETAMINOPHEN 1,000 MG/100 ML VIAL IV SCH (21:36)
[2019-06-22] MEDS ORDERED: ALBUMIN 25% 50 ML IV ONE (22:30)
[2019-06-22] MEDS ORDERED: IOVERSOL 100ml IV PRN (23:23)
[2019-06-22] MEDS ORDERED: POTASSIUM CHLORIDE 10 MEQ TABCR PO STA (23:46)
[2019-06-22] MEDS ORDERED: XOPENEX/ATROVENT 1.25mg/0.5MG NEB COMBO NEB STA (23:47)
[2019-06-22] MEDS ORDERED: IPRATROPIUM BROMIDE NEB SOLN 0.02% 2.5 ML VIAL INH STA (23:51)
[2019-06-22] MEDS ORDERED: LEVALBUTEROL 1.25MG/0.5ML NEB INH STA (23:51)
[2019-06-23] MEDS ORDERED: DIGOXIN 250 MCG in SYRINGE 9 ML IV ONE
[2019-06-23] MEDS ORDERED: HYDROmorphone INJ 0.5 MG/0.5 ML SYR IV PRN (00:16)
[2019-06-23] MEDS ORDERED: ALBUMIN 25% 50 ML with FUROSEMIDE 20 MG IV ONE (00:30)
[2019-06-23] MEDS ORDERED: LACTULOSE SYRUP 30 GM/45 ML UDP PO ONE (00:30)
[2019-06-23] MEDS ORDERED: METHYLNALTREXONE BROMIDE 12 MG/0.6 ML VIAL SQ ONE (00:30)
[2019-06-23] MEDS ORDERED: VANCOMYCIN HCL 1,250 MG in SODIUM CHLORIDE 0.9% 250 ML IV ONE (00:30)
[2019-06-23] MEDS: DOCUSATE SODIUM/SENNA 50/8.6MG TAB PO SCH ×2 (00:49→08:22)
[2019-06-23] MEDS ORDERED: OLANZapine 10 MG/2.1 ML SDV IM PRN (03:17)
[2019-06-23] MEDS: POLYETHYLENE (MIRALAX) 17 GM PACK PO SCH (03:32)
[2019-06-23] MEDS: dilTIAZem HCl 125 MG in DEXTROSE 5% 100 ML IV SCH (03:32)
[2019-06-23] MEDS: HEPARIN SODIUM/DEXTROSE 25,000 UNITS/500 ML BAG IV SCH (03:33)
[2019-06-23 03:43] LABS: Albumin Level 2.6 gm/dl (3.4-5.0); BUN Creatinine Ratio 22.2 (10-20); Calcium 8.3 mg/dl (8.5-10.1); Creatinine Clr Calc Pharmacy 29.3 ml/min; Est GFR (African American) 48.9; Est GFR (Non-African American) 42.2; Magnesium 2.3 mg/dl (1.8-2.4); Potassium 3.8 mmol/L (3.5-5.1)
[2019-06-23 03:44] LABS: Partial Thromboplastin Ratio 4.8
[2019-06-23 03:45] LABS: Albumin Globulin Ratio 0.7 (0.9-2); Bilirubin,Total 0.9 mg/dl (0.2-1); Globulin 3.8 gm/dl (2.5-4.0); Total Protein 6.4 gm/dl (6.4-8.2)
[2019-06-23 03:57] LABS: Hematocrit (blood only) 35.8 % (37-47); Mean Corpuscular Hemoglobin 31.4 pg (25-34); Mean Corpuscular Hgb Conc 33.5 g/dL (32-36); Mean Corpuscular Volume 93.7 fL (80-100); Mean Platelet Volume 12.4 fL (7.4-10.4); Platelet Count 113 K/uL (130-400); RDW Coefficient of Variation 15.7 % (11.5-14.5); RDW Standard Deviation 54.1 fL (36.4-46.3); Red Blood Count 3.82 M/uL (4.2-5.4); White Blood Count 20.53 K/uL (4.8-10.8)
[2019-06-23 03:58] LABS: Base Excess ABG -2.9 mEq/L (-9-1.8); Basophils # (auto) 0.04 K/uL (0-0.2); Basophils % (auto) 0.2 %; Dohle Bodies 2+; Giant Platelets 1+; HCO3 ABG 22 mmol/L (19-24); Immature Granulocytes % (auto) 4.4 %; Lymphocytes # (auto) 0.78 K/uL (1.2-3.4); Lymphocytes % (auto) 3.8 %; Monocytes # (auto) 1.21 K/uL (0.11-0.59); Monocytes % (auto) 5.9 %; Neutrophils % (auto) 85.7 %; Oxygen Saturation ABG 84.7 % (90-95); PCO2 ABG 38 mmHg (35-46); PO2 ABG 48 mm/Hg (80-95); Platelet Estimate Decreased (Normal); Toxic Granulation 1+; pH ABG 7.38 (7.35-7.45)
[2019-06-23 04:00] LABS: Allen Test POS (Pos)
[2019-06-23] MEDS ORDERED: CEFEPIME 2,000 MG in SYRINGE 7.5 ML IV SCH (04:00)
[2019-06-23] MEDS ORDERED: METOPROLOL SUCC 50MG EXT REL TAB PO SCH (04:00)
[2019-06-23] MEDS ORDERED: LACTULOSE SYRUP 30 GM/45 ML UDP PO STA (04:01)
[2019-06-23 04:03] LABS: Partial Thromboplastin Time 129.6 Seconds (21.0-31.0)
[2019-06-23] MEDS ORDERED: ALBUMIN 25% 50 ML IV ONE (04:15)
[2019-06-23] MEDS ORDERED: POTASSIUM CHLORIDE 20 MEQ TABCR PO STA (04:23)
[2019-06-23] MEDS ORDERED: ALBUMIN 25% 50 ML IV SCH (06:00)
[2019-06-23] MEDS: ACETAMINOPHEN 1,000 MG/100 ML VIAL IV SCH (06:05)
[2019-06-23] MEDS ORDERED: VANCOMYCIN HCL 1,000 MG in SODIUM CHLORIDE 0.9% 250 ML IV SCH (07:00)
--- NOTE | 2019-06-23 07:22 | History & Physical Report ---
Date of Service June 23, 2019 History of Present Illness Primary Care Provider: Anat Bangura DO Allergies Allergy/AdvReac Type Severity Reaction Status Date / Time No Known Allergies Allergy Verified 06/21/19 22:20 Home Medications Home Medications Medication Instructions Recorded Confirmed Type albuterol sulfate [Ventolin HFA] 2 puff INHALATION Q4H PRN 06/21/19 06/21/19 History aspirin 81 mg PO DAILY 06/21/19 06/21/19 History atorvastatin 40 mg PO QAM 06/21/19 06/21/19 History calcium carbonate-vitamin D3 1 tab PO DAILY 06/21/19 06/21/19 History [Calcium 600 + D(3)] cholecalciferol (vitamin D3) 2,000 unit PO DAILY 06/21/19 06/21/19 History [Vitamin D3] diltiazem HCl 120 mg PO QAM 06/21/19 06/21/19 History fluticasone propion-salmeterol 1 inh INHALATION BID 06/21/19 06/21/19 History [Advair Diskus] fluticasone propionate [Flonase 2 spray INTRANASAL DAILY 06/21/19 06/21/19 History Allergy Relief] ipratropium-albuterol [Combivent 1 puff INHALATION QID 06/21/19 06/21/19 History Respimat] metoprolol succinate 50 mg PO DAILY 06/21/19 06/21/19 History montelukast 10 mg PO QAM 06/21/19 06/21/19 History nitroglycerin [Nitrostat] 0.4 mg SUBLINGUAL DIRECTED PRN 06/21/19 06/21/19 History tramadol 100 mg PO Q8H PRN 06/21/19 06/21/19 History Past Med/Surg History Medical History (Updated 06/22/19 @ 20:44 by Aga Lopez DO) Asthma CAD (coronary artery disease) Chest pain Liver lesion NSTEMI (non-ST elevated myocardial infarction) Surgical History Hx of heart artery stent Family History Other Family history non-contributory Social History Preferred Language: [place]ian Communication Ability: Effective Beliefs That Will Affect Care: None Current Living Situation: Alone Feels Safe at Home: Yes Safety Concerns: Feels Safe At This Time Smoking Status: Never smoker Hx Alcohol Use: Yes Alcohol type: wine Hx Substance Use: No Results & Data Vital Signs (Past 12 Hours) Vital Signs Temp Pulse Pulse Resp BP BP Pulse Ox 06/23/19 03:50 36.3 C L 107 H 24 130/75 91 06/23/19 00:16 126 H 06/23/19 00:05 120 H 28 H 90 06/23/19 00:00 127 H 06/22/19 23:30 36.8 C 116 H 22 109/61 92 06/22/19 22:10 140 H 26 H 131/84 90 06/22/19 19:45 142 H
--- NOTE | 2019-06-23 08:06 | CT Scan Report ---
ABDOMEN AND PELVIS CT WITH IV AND ORAL CONTRAST CT DOSE: 679.08 mGycm HISTORY: worsening abdominal distension TECHNIQUE: Multiaxial CT images of the abdomen and pelvis were performed following the use of intrave nous and oral contrast. A dose lowering technique was utilized adhering to the principles of ALARA. COMPARISON STUDY: Abdomen and pelvis CT 06/21/2019. FINDINGS: Interval development of a small right and trace left pleural effusions with consolidation w ithin the lower lobes posteriorly. This reversed compressive atelectasis from the pleural effusions. No pneumoperitoneum. No pneumatosis. No suspicious lytic or blastic osseous lesions. Small amount of ascites has also developed. This is most pronounced within the right upper quadrant. No change in the heterogeneous right hepatic lobe abnormality measuring approximately 10.6 x 7.9 cm. This demonstrate s multiple enhancing septations and cystic change. This is nonspecific and could represent an abscess , mass, or possibly an infarct given the lack of a surrounding capsule. The spleen, adrenal glands, a nd pancreas are unremarkable. Bilateral renal hypodense lesions consistent with cysts. No hydronephro sis. Focal scarring within the upper pole the right kidney, unchanged. The main portal vein is patent . No retroperitoneal lymphadenopathy. Moderate calcified plaque within the normal caliber abdominal a eva. Mild dilated fluid-filled proximal to mid small bowel. There is a transition point seen within the left lower quadrant within the small bowel on image 304. There is new from the prior study and is consistent with a small bowel obstruction. The ileum distal to this location is decompressed. There is moderate stool remaining within the colon. Colonic diverticulosis. The bladder is decompressed by Clancy catheter. This likely accounts for the gas within the bladder lumen. Distended and fluid-filled moderate hiatus hernia. Small fat-containing midline epigastric hernia. Hyperdense material within t he gallbladder likely representing vicarious excretion of contrast from the prior study. No retroperi toneal lymphadenopathy. Body wall edema. IMPRESSION: 1. No significant change in the 10.6 x 7.9 cm low-attenuation abnormality within the right hepatic lo be. This could represent a cystic mass, abscess, or possibly a hepatic infarct. 2. Interval development of a small bowel obstruction with a transition point located within the left lower quadrant. 3. Interval development of a small right and trace left pleural effusion. Consolidation within the lo wer lobes posteriorly favor atelectasis. 4. Additional findings as described above. Electronically signed by: Jasbir Bautista M.D. 06/23/2019 8:05 AM
--- NOTE | 2019-06-23 08:16 | Gastroenterology Progress Note ---
Date of Service June 23, 2019 Assessment & Plan (1) Abdominal pain: 79 year old female w/ history of NSTEMI s/p CHINO to LAD and RCA in 2018, pericarditis, afib on ASA, HTN, dyslipidemia, COPD who presents through the ED for evaluation of weakness and fatigue - admitted w/ urinary sepsis, afib, hypoxemic respiratory failure - GI asked to evaluate for abnormal imaging, 10 cm right hepatic lobe lesion. She has normal TB, ALKP w/ newly elevated AST/ALT per outpatient chart. Has never had a colonoscopy, no prior abd imaging. About 15 lb weight loss per OP records. She had worsening abdominal pain last evening despite passing two small BMs. Repeat CT imaging at that time showed interval development of a small bowel obstruction with a transition point located within the left lower quadrant. It appears general surgery consultation is placed and underway - Will contact primary service to discuss concerns - Appreciate management of acute respiratory, cardiac conditions. - Appreciate general surgery consultation - NPO, Consider tertiary care center Will follow - thank you for allowing us to participate in the care of this patient. Please call with any acute changes, questions or concerns. Please see addendum below with additional recommendation from my supervising physician. Present on Admission?: Yes Present on Admission?: Yes (2) Liver mass: Present on Admission?: Yes Supervising Physician Co-Signing Physician Notes Patient was transferred prior to afternoon rounds. Subjective Pt was seen and evaluated, chart reviewed Family at bedside. Endorses worsening SOB this AM. Started last evening and has persisted. Notes she did have two very small, formed stools. Brown. Still feels extremely constipated. Generalized abdominal pain, No nausea, vomiting. Did undergo repeat imaging last evening Concerning for SBO Lactic acid is elevated this AM CTAP: No significant change in the 10.6 x 7.9 cm low-attenuation abnormality within the right hepatic lobe. This could represent a cystic mass, abscess, or possibly a hepatic infarct. Interval development of a small bowel obstruction with a transition point located within the left lower quadrant. Interval development of a small right and trace left pleural effusion. Consolidation within the lower lobes posteriorly favor atelectasis. Review of Systems Constitutional: + fatigue and + weakness; no fever and no chills Respiratory: + dyspnea and + dyspnea on exertion; no cough Cardiovascular: + dyspnea at rest; no chest pain and no chest pain at rest Gastrointestinal: + bloating and + constipation; no abdominal pain Physical Exam Constitutional: + acute distress (pt appears weak, SOB) and + ill appearing Neck: trachea midline Respiratory: + respiratory distress (pt SOB despite O2) Auscultation: + diminished lung sounds Pt is SOB w/ conversation Cardiovascular: Rate/Rhythm: + tachycardic Gastrointestinal (Abdomen): Inspection/Auscultation: + abdomen distended; + abnormal bowel sounds (diminished) Percussion/Palpation: + abdomen tender; no guarding and abdomen not rigid Skin: no rashes, warm and dry Results & Data Vital Signs (Past 12 Hours) Vital Signs Temp Pulse Pulse Resp BP BP Pulse Ox 06/23/19 07:45 36.5 C 121 H 22 154/89 H 90 06/23/19 03:50 36.3 C L 107 H 24 130/75 91 06/23/19 00:16 126 H 06/23/19 00:05 120 H 28 H 90 06/23/19 00:00 127 H 06/22/19 23:30 36.8 C 116 H 22 109/61 92 06/22/19 22:10 140 H 26 H 131/84 90
[2019-06-23] MEDS: FLUTICASONE/SALMETEROL (ADVAIR) 500/50 INH 14 PUFF INH SCH (08:21)
[2019-06-23] MEDS: MONTELUKAST SODIUM 10 MG TABLET PO SCH (08:22)
[2019-06-23] MEDS: ASPIRIN 81 MG ECTAB PO SCH (08:23)
--- NOTE | 2019-06-23 08:45 | Surgery Consultation ---
Date of Consultation June 23, 2019 Assessment & Plan (1) Abdominal pain: The etiology of this patient's gram-positive bacteremia along with the mottled appearance of her skin and the now involving small bowel obstruction not seen on previous CT scan as well as the lesion in the liver that was difficult to characterize by CT criteria along with her atrial fibrillation with RVR would merit transfer to a tertiary care center. I contacted [facility] who has accepted her in the transfer will be as per Dr. Lopez. I agree that there transport would be most appropriate if possible. (2) Gram positive septicemia: (3) Atrial fibrillation with rapid ventricular response: (4) Hypoxia: (5) Liver lesion: (6) Sepsis: History of Present Illness Reason for Consultation: Abdominal pain, liver lesion, evolving bowel o bstruction Requesting Physician: Aga Lopez DO Attending Physician: Aga Lopez DO History of Present Illness I been asked by Dr. Lopez to see this 79-year-old female who presented initially to the emergency room yesterday morning with a complaint of abdominal pain and weakness. While in the emergency room she went into atrial fibrillation with rapid ventricular response. She has had that one time about a year and a half ago after her non-STEMI. CT scan of the abdomen was obtained. It showed a 10 x 8 cm lesion in the right lobe of the liver that is difficult to definitively characterize. She had 4 blood culture bottles all positive for gram-positive cocci. Identification is pending. Her abdominal pain began apparently the day before. She had no nausea or vomiting. She did have fever and chills prior to coming to the emergency room. Last night her abdominal pain and distention seem to increase. CT scan was repeated. An evolving bowel obstruction with proximally dilated bowel was seen with a possible transition point in the left lower quadrant. There was no evidence of bowel obstruction on the CAT scan from earlier in the day. Her lactate levels have been ranging up and down between 2 and 4.5. Her heart rate was under better control. She was never hypotensive. By CAT scan criteria there was no evidence of bowel ischemia. There was no thickening of the wall and there was no pneumatosis. On the second CAT scan she had developed ascites. She has developed mild shortness of breath. Her pulse oximetry is in the low 90s on 3 L nasal cannula. The pain last night she described as a 8 out of 10. This morning it is 4 out of 10. Allergies Allergy/AdvReac Type Severity Reaction Status Date / Time No Known Allergies Allergy Verified 06/21/19 22:20 Home Medications Home Medications Medication Instructions Recorded Confirmed Type albuterol sulfate [Ventolin HFA] 2 puff INHALATION Q4H PRN 06/21/19 06/21/19 History aspirin 81 mg PO DAILY 06/21/19 06/21/19 History atorvastatin 40 mg PO QAM 06/21/19 06/21/19 History calcium carbonate-vitamin D3 1 tab PO DAILY 06/21/19 06/21/19 History [Calcium 600 + D(3)] cholecalciferol (vitamin D3) 2,000 unit PO DAILY 06/21/19 06/21/19 History [Vitamin D3] diltiazem HCl 120 mg PO QAM 06/21/19 06/21/19 History fluticasone propion-salmeterol 1 inh INHALATION BID 06/21/19 06/21/19 History [Advair Diskus] fluticasone propionate [Flonase 2 spray INTRANASAL DAILY 06/21/19 06/21/19 History Allergy Relief] ipratropium-albuterol [Combivent 1 puff INHALATION QID 06/21/19 06/21/19 History Respimat] metoprolol succinate 50 mg PO DAILY 06/21/19 06/21/19 History montelukast 10 mg PO QAM 06/21/19 06/21/19 History nitroglycerin [Nitrostat] 0.4 mg SUBLINGUAL DIRECTED PRN 06/21/19 06/21/19 History tramadol 100 mg PO Q8H PRN 06/21/19 06/21/19 History Patient History Medical History (Updated 06/22/19 @ 20:44 by Aga Lopez DO) Asthma CAD (coronary artery disease) Chest pain Liver lesion NSTEMI (non-ST elevated myocardial infarction) Surgical History (Updated 06/23/19 @ 08:50 by Orion Wang MD) Hx of heart artery stent S/P laparoscopic assisted vaginal hysterectomy ([facility]) Family History Other Family history non-contributory Social History Preferred Language: Dutch Communication Ability: Effective Beliefs That Will Affect Care: None Current Living Situation: Alone Feels Safe at Home: Yes Safety Concerns: Feels Safe At This Time Smoking Status: Never smoker Hx Alcohol Use: Yes Alcohol type: wine Hx Substance Use: No Physical Exam Constitutional: Appears mildly short of breath but answers questions appropriately and appears otherwise to be resting comfortably Neck: trachea midline Respiratory: Decreased breath sounds bilaterally with scattered rhonchi but no rales Cardiovascular: Rate/Rhythm: + tachycardic and + irregularly irregular Gastrointestinal (Abdomen): Inspection/Auscultation: + abdomen distended and + hypoactive bowel sounds Percussion/Palpation: + abdomen tender (Diffuse) and abdomen soft Musculoskeletal: Lower extremities are mottled and cool and I cannot palpate pulses although she has 5/5 strength and sensation is intact Skin: Mottled appearance below the umbilicus Lymphatic: no cervical lymphadenopathy Results & Data Vital Signs (Past 12 Hours) Vital Signs Temp Pulse Pulse Resp BP BP Pulse Ox 06/23/19 07:45 36.5 C 121 H 22 154/89 H 90 06/23/19 03:50 36.3 C L 107 H 24 130/75 91 06/23/19 00:16 126 H 06/23/19 00:05 120 H 28 H 90 06/23/19 00:00 127 H 06/22/19 23:30 36.8 C 116 H 22 109/61 92 06/22/19 22:10 140 H 26 H 131/84 90 Laboratory Results 06/23/19 06/23/19 06/23/19 Range/Units 07:10 03:11 03:11 WBC (4.8-10.8) K/uL RBC (4.2-5.4) M/uL Hgb (12.0-16.0) g/dL Hct (37-47) % MCV (80-100) fL MCH (25-34) pg MCHC (32-36) g/dL RDW Std Deviation (36.4-46.3) fL RDW Coeff of Gillian (11.5-14.5) % Plt Count (130-400) K/uL MPV (7.4-10.4) fL Immature Gran % (Auto) % Neut % (Auto) % Lymph % (Auto) % [place] % (Auto) % Eos % (Auto) % Baso % (Auto) % Immature Gran # (Auto) (0.00-0.02) K/uL Neut # (Auto) (1.4-6.5) K/uL Lymph # (Auto) (1.2-3.4) K/uL [place] # (Auto) (0.11-0.59) K/uL Eos # (Auto) (0-0.5) K/uL Baso # (Auto) (0-0.2) K/uL Neutrophils % (Manual) % Lymphocytes % (Manual) % Monocytes % (Manual) % Metamyelocytes % (Man) % Neutrophils # (Manual) (1.4-6.5) K/uL Total Absolute Neuts (1.4-6.5) K/uL Lymphocytes # (Manual) (1.2-3.4) K/uL Total Abs Lymphocytes (1.2-3.4) K/uL Monocytes # (Manual) (0.11-0.59) K/uL Metamyelocytes # (Man) (0-0) K/uL Toxic Granulation Dohle Bodies Platelet Estimate (Normal) Giant Platelets Echinocytes APTT (21.0-31.0) Seconds PTT Ratio ABG pH 7.38 (7.35-7.45) ABG pCO2 38 (35-46) mmHg ABG pO2 48 L (80-95) mm/Hg ABG HCO3 22 (19-24) mmol/L ABG O2 Saturation 84.7 L (90-95) % ABG Base Excess -2.9 (-9-1.8) mEq/L Abhilash Test POS (Pos) Barometric Pressure 726.8 mm/Hg Oxygen Given 3 L Sodium (136-145) mmol/L Potassium (3.5-5.1) mmol/L Chloride (98-107) mmol/L Carbon Dioxide (21-32) mmol/L Anion Gap (3-11) BUN (7-18) mg/dl Creatinine (0.6-1.2) mg/dl Est Cr Clr Drug Dosing ml/min Est GFR ( Amer) Est GFR (Non-Af Amer) BUN/Creatinine Ratio (10-20) Glucose (70-99) mg/dl Lactate 4.1 H* 2.8 H* (0.4-2.0) mmol/L Calcium (8.5-10.1) mg/dl Magnesium (1.8-2.4) mg/dl Total Bilirubin (0.2-1) mg/dl AST (15-37) U/L ALT (12-78) U/L Alkaline Phosphatase (45-117) U/L Total Protein (6.4-8.2) gm/dl Albumin (3.4-5.0) gm/dl Globulin (2.5-4.0) gm/dl Albumin/Globulin Ratio (0.9-2) Lipase (73-393) U/L Random Vancomycin mcg/ml 06/23/19 06/23/19 06/23/19 Range/Units 03:11 03:11 03:11 WBC 20.53 H (4.8-10.8) K/uL RBC 3.82 L (4.2-5.4) M/uL Hgb 12.0 (12.0-16.0) g/dL Hct 35.8 L (37-47) % MCV 93.7 (80-100) fL MCH 31.4 (25-34) pg MCHC 33.5 (32-36) g/dL RDW Std Deviation 54.1 H (36.4-46.3) fL RDW Coeff of Gillian 15.7 H (11.5-14.5) % Plt Count 113 L (130-400) K/uL MPV 12.4 H (7.4-10.4) fL Immature Gran % (Auto) 4.4 % Neut % (Auto) 85.7 % Lymph % (Auto) 3.8 % [place] % (Auto) 5.9 % Eos % (Auto) 0.0 % Baso % (Auto) 0.2 % Immature Gran # (Auto) 0.90 H (0.00-0.02) K/uL Neut # (Auto) 17.60 H (1.4-6.5) K/uL Lymph # (Auto) 0.78 L (1.2-3.4) K/uL [place] # (Auto) 1.21 H (0.11-0.59) K/uL Eos # (Auto) 0.00 (0-0.5) K/uL Baso # (Auto) 0.04 (0-0.2) K/uL Neutrophils % (Manual) % Lymphocytes % (Manual) % Monocytes % (Manual) % Metamyelocytes % (Man) % Neutrophils # (Manual) (1.4-6.5) K/uL Total Absolute Neuts (1.4-6.5) K/uL Lymphocytes # (Manual) (1.2-3.4) K/uL Total Abs Lymphocytes (1.2-3.4) K/uL Monocytes # (Manual) (0.11-0.59) K/uL Metamyelocytes # (Man) (0-0) K/uL Toxic Granulation 1+ Dohle Bodies 2+ Platelet Estimate Decreased L (Normal) Giant Platelets 1+ Echinocytes APTT 129.6 H* (21.0-31.0) Seconds PTT Ratio 4.8 ABG pH (7.35-7.45) ABG pCO2 (35-46) mmHg ABG pO2 (80-95) mm/Hg ABG HCO3 (19-24) mmol/L ABG O2 Saturation (90-95) % ABG Base Excess (-9-1.8) mEq/L Abhilash Test (Pos) Barometric Pressure mm/Hg Oxygen Given Sodium 132 L (136-145) mmol/L Potassium 3.8 (3.5-5.1) mmol/L Chloride 102 (98-107) mmol/L Carbon Dioxide 23 (21-32) mmol/L Anion Gap 7.0 (3-11) BUN 27 H (7-18) mg/dl Creatinine 1.21 H D (0.6-1.2) mg/dl Est Cr Clr Drug Dosing 29.3 ml/min Est GFR ( Amer) 48.9 Est GFR (Non-Af Amer) 42.2 BUN/Creatinine Ratio 22.2 H (10-20) Glucose 160 H (70-99) mg/dl Lactate (0.4-2.0) mmol/L Calcium 8.3 L (8.5-10.1) mg/dl Magnesium 2.3 (1.8-2.4) mg/dl Total Bilirubin 0.9 (0.2-1) mg/dl AST 275 H (15-37) U/L ALT 355 H (12-78) U/L Alkaline Phosphatase 49 (45-117) U/L Total Protein 6.4 (6.4-8.2) gm/dl Albumin 2.6 L (3.4-5.0) gm/dl Globulin 3.8 (2.5-4.0) gm/dl Albumin/Globulin Ratio 0.7 L (0.9-2) Lipase (73-393) U/L Random Vancomycin mcg/ml 06/22/19 06/22/19 06/22/19 Range/Units 22:47 22:47 18:49 WBC (4.8-10.8) K/uL RBC (4.2-5.4) M/uL Hgb (12.0-16.0) g/dL Hct (37-47) % MCV (80-100) fL MCH (25-34) pg MCHC (32-36) g/dL RDW Std Deviation (36.4-46.3) fL RDW Coeff of Gillian (11.5-14.5) % Plt Count (130-400) K/uL MPV (7.4-10.4) fL Immature Gran % (Auto) % Neut % (Auto) % Lymph % (Auto) % [place] % (Auto) % Eos % (Auto) % Baso % (Auto) % Immature Gran # (Auto) (0.00-0.02) K/uL Neut # (Auto) (1.4-6.5) K/uL Lymph # (Auto) (1.2-3.4) K/uL [place] # (Auto) (0.11-0.59) K/uL Eos # (Auto) (0-0.5) K/uL Baso # (Auto) (0-0.2) K/uL Neutrophils % (Manual) % Lymphocytes % (Manual) % Monocytes % (Manual) % Metamyelocytes % (Man) % Neutrophils # (Manual) (1.4-6.5) K/uL Total Absolute Neuts (1.4-6.5) K/uL Lymphocytes # (Manual) (1.2-3.4) K/uL Total Abs Lymphocytes (1.2-3.4) K/uL Monocytes # (Manual) (0.11-0.59) K/uL Metamyelocytes # (Man) (0-0) K/uL Toxic Granulation Dohle Bodies Platelet Estimate (Normal) Giant Platelets Echinocytes APTT (21.0-31.0) Seconds PTT Ratio ABG pH (7.35-7.45) ABG pCO2 (35-46) mmHg ABG pO2 (80-95) mm/Hg ABG HCO3 (19-24) mmol/L ABG O2 Saturation (90-95) % ABG Base Excess (-9-1.8) mEq/L Abhilash Test (Pos) Barometric Pressure mm/Hg Oxygen Given Sodium (136-145) mmol/L Potassium (3.5-5.1) mmol/L Chloride (98-107) mmol/L Carbon Dioxide (21-32) mmol/L Anion Gap (3-11) BUN (7-18) mg/dl Creatinine (0.6-1.2) mg/dl Est Cr Clr Drug Dosing ml/min Est GFR ( Amer) Est GFR (Non-Af Amer) BUN/Creatinine Ratio (10-20) Glucose (70-99) mg/dl Lactate 4.0 H* 4.3 H* (0.4-2.0) mmol/L Calcium (8.5-10.1) mg/dl Magnesium (1.8-2.4) mg/dl Total Bilirubin (0.2-1) mg/dl AST (15-37) U/L ALT (12-78) U/L Alkaline Phosphatase (45-117) U/L Total Protein (6.4-8.2) gm/dl Albumin (3.4-5.0) gm/dl Globulin (2.5-4.0) gm/dl Albumin/Globulin Ratio (0.9-2) Lipase (73-393) U/L Random Vancomycin 6.4 mcg/ml 06/22/19 06/22/19 06/22/19 Range/Units 18:49 18:48 18:48 WBC 12.79 H (4.8-10.8) K/uL RBC 4.16 L (4.2-5.4) M/uL Hgb 13.4 (12.0-16.0) g/dL Hct 39.8 (37-47) % MCV 95.7 (80-100) fL MCH 32.2 (25-34) pg MCHC 33.7 (32-36) g/dL RDW Std Deviation 55.1 H (36.4-46.3) fL RDW Coeff of Gillian 15.6 H (11.5-14.5) % Plt Count 115 L (130-400) K/uL MPV 12.4 H (7.4-10.4) fL Immature Gran % (Auto) % Neut % (Auto) % Lymph % (Auto) % [place] % (Auto) % Eos % (Auto) % Baso % (Auto) % Immature Gran # (Auto) (0.00-0.02) K/uL Neut # (Auto) (1.4-6.5) K/uL Lymph # (Auto) (1.2-3.4) K/uL [place] # (Auto) (0.11-0.59) K/uL Eos # (Auto) (0-0.5) K/uL Baso # (Auto) (0-0.2) K/uL Neutrophils % (Manual) 88.0 % Lymphocytes % (Manual) 8.0 % Monocytes % (Manual) 2.0 % Metamyelocytes % (Man) 2.0 % Neutrophils # (Manual) 11.26 H (1.4-6.5) K/uL Total Absolute Neuts 11.26 H (1.4-6.5) K/uL Lymphocytes # (Manual) 1.02 L (1.2-3.4) K/uL Total Abs Lymphocytes 1.02 L (1.2-3.4) K/uL Monocytes # (Manual) 0.26 (0.11-0.59) K/uL Metamyelocytes # (Man) 0.26 H (0-0) K/uL Toxic Granulation Dohle Bodies 1+ Platelet Estimate (Normal) Giant Platelets Echinocytes 2+ APTT (21.0-31.0) Seconds PTT Ratio ABG pH (7.35-7.45) ABG pCO2 (35-46) mmHg ABG pO2 (80-95) mm/Hg ABG HCO3 (19-24) mmol/L ABG O2 Saturation (90-95) % ABG Base Excess (-9-1.8) mEq/L Abhilash Test (Pos) Barometric Pressure mm/Hg Oxygen Given Sodium 136 (136-145) mmol/L Potassium 3.5 (3.5-5.1) mmol/L Chloride 104 (98-107) mmol/L Carbon Dioxide 24 (21-32) mmol/L Anion Gap 9.0 (3-11) BUN 19 H (7-18) mg/dl Creatinine 0.82 (0.6-1.2) mg/dl Est Cr Clr Drug Dosing 43.3 ml/min Est GFR ( Amer) 78.3 Est GFR (Non-Af Amer) 67.6 BUN/Creatinine Ratio 22.7 H (10-20) Glucose 163 H (70-99) mg/dl Lactate (0.4-2.0) mmol/L Calcium 8.6 (8.5-10.1) mg/dl Magnesium (1.8-2.4) mg/dl Total Bilirubin 0.8 (0.2-1) mg/dl AST 355 H (15-37) U/L ALT 428 H (12-78) U/L Alkaline Phosphatase 54 (45-117) U/L Total Protein 6.1 L (6.4-8.2) gm/dl Albumin 2.1 L (3.4-5.0) gm/dl Globulin 4.0 (2.5-4.0) gm/dl Albumin/Globulin Ratio 0.5 L (0.9-2) Lipase 51 L (73-393) U/L Random Vancomycin mcg/ml (1) Sepsis Sepsis acute organ dysfunction status: unspecified Sepsis type: sepsis due to unspecified organism Qualified Code(s): A41.9 - Sepsis, unspecified organism
[2019-06-23] MEDS ORDERED: RAPID SEQUENCE INDUCTION BAG ONE (08:59)
--- NOTE | 2019-06-23 08:59 | Discharge Summary ---
Date of Service June 23, 2019 Admission HPI Per Admitting Provider Medical history significant for CAD status post stent, PAF as per records, asthma/COPD as per records, past tobacco abuse, hypertension, hyperlipidemia, cervical dysplasia as per records, prediabetes as per records. Recent confinement December 2017 for NSTEMI. CHINO placed for LAD and RCA disease. Patient developed pericarditis/pericardial effusion and atrial fibrillation during confinement. Anticoagulation precluded for AF by pericardial effusion as per records. About 10 days history of increased generalized weakness, poor appetite. Patient noted to be slow moving and weak as per j2ee android developer. Patient denies chest pain, S OB, cough, abdominal pain, diarrhea, dysuria symptoms. Patient noted to be tachycardic by EMS. IV Vancomycin and Zosyn given at the ER for sepsis. Patient went into rapid A. fib at the ER. Admission Exam Per Admitting Provider GENERAL: Slightly uncomfortable, looks younger for stated age, no respiratory distress SKIN: Normal color, warm HEENT: [place] palpebral conjunctivae, no ptosis, dry buccal mucosa NECK : Supple, no tenderness CHEST : Decreased breath sounds, no tenderness HEART : Tachycardic, irregular , no obvious murmurs ABDOMEN: Some distention, nontender EXTREMITIES : No LE swelling/tenderness, no other conspicuous deformities noted NEUROLOGIC : Coherent, no facial asymmetry, no other gross focality Principal Diagnosis acute respiratory failure SBO acute abdomen liver mass-uncertain etiology atrial fibrillation with RVR elevated lactate gram positive septicemia Discharge Data Allergies Allergy/AdvReac Type Severity Reaction Status Date / Time No Known Allergies Allergy Verified 06/21/19 22:20 Consultations 06/21/19 23:46 ED Decision to Admit Stat 06/22/19 02:58 Consult Cardiology Routine 06/22/19 07:28 Consult Gastroenterology Routine 06/22/19 19:21 Consult Infectious Diseases Routine 06/22/19 20:35 Consult General Surgery Routine 06/23/19 08:51 Burn CD for patient Stat Ordered Studies 06/21/19 22:02 CT abd pelvis IV con only Urgent CT angio chest PE protocol Urgent 06/22/19 20:03 CT abd pelvis oral and IV con Urgent Hospital Course (1) Acute and chronic respiratory failure with hypoxia: (2) Gram positive septicemia: (3) Atrial fibrillation with rapid ventricular response: (4) Abdominal pain: (5) Constipation: (6) Elevated lactic acid level: (7) Liver mass: 79-year-old female presented with sepsis to the ER was found to have gram- positive cocci in the blood. The source was unclear and she was placed on broad-spectrum antibiotics with vancomycin and Zosyn. Zosyn was continued until she developed an acute abdomen and required repeat CT scanning 24 hours after admission. There was concern for nephrotoxicity with the need for repeat IV contrastand Zosyn was switched to Cefepime. Initial CT scan of the abdomen revealed a 10.5 cm lesion in the inferior right lobe of the liver. Considerations for this included but were not limited to a biliary cystadenoma or cystadenocarcinoma. Other etiologies including hidrotic cyst or hepatic infarction was considered less likely per the radiology reading. GI was consulted and recommended dedicated liver imaging, however, the patient was hemodynamically unstable as a result of her sepsis syndrome and now atrial fibrillation with rapid ventricular response. She had a history of atrial fibrillation in the past but was not on anticoagulation as an outpatient. She was initially given digoxin and pushes of diltiazem and Lopressor in an effort to control her rate, which was unsuccessful. Cardiology was consulted and ultimately she was transitioned to a diltiazem drip and oral metoprolol. She continued to remain tachycardic and throughout hospital day 2 her abdomen became more distended firm and tender. She reported that she had not had a bowel movement in 4 to 5 days at that point and appeared to have some gaseous pain and bloating. Several attempts to assist her bowels to move were unsuccessful including multiple doses of Miralax, a tap water enema which she was unable to retain, and CT oral contrast given with a second CT scan. Her lactate was elevated, WBC had improved with sepsis resuscitation from 26K to 13K, but then worsened to 20K with a worsened lactate level. General Surgery was consulted and recommended the repeat CT scan with IV and oral contrast, in addition to rectal contrast. This revealed interval development of a new SBO. She was able to have a very small hard bowel movement after a dose of lactulose overnight and a dose of Relistor. Throughout this time she became more tachypneic secondary to her initial sepsis resuscitation efforts, her increasing and more distended abdomen, and subsequently a failed NG tube placement attempt which she aspirated. general Surgery recommended care at a tertiary care center as her needs exceeded the resources available at the current facility. On physical exam at time of discharge (just prior to intubation) the patient's abdomen was persistently distended and tender in the suprapubic region consistently. She was intermittently hallucinating but was able to converse appropriately for the most part. After the failed NG tube placement her lung sounds became more coarse and she became more tachypneic. Heart sounds revealed S1/S2 with no evidence of murmurs and rhythm was irregular. Heart rate was around 100. Importantly, new evidence of mottling to her bilateral lower extremities was present on the pelvis down to her feet. Her feet were cool to touch without clear palpable pulse. She was transferred in critical condition to the ICU for further work-up and treatment. She was intubated for acute respiratory failure and was flown to [facility] in [facility] by the Gun Perforator, Dr. Gualberto Acosta. Of note, the bacteria in the blood was not speciated and she had not been able to have an echocardiogram prior to discharge which will be needed. Urine culture was negative at the time of discharge. Current Inpatient Medications Albuterol (Duoneb) 3 ml NEB QIDR PRN PRN Reason: shortness of breath or wheezin Stop: 07/23/19 06:59 Last Admin: 06/23/19 06:44 Dose: 3 ml Documented by: Aspirin (Ecotrin Ectab) 81 mg PO DAILY COUNTS INCLUDE 234 BEDS AT THE [facility] Stop: 07/22/19 08:59 Last Admin: 06/23/19 08:23 Dose: 81 mg Documented by: Diltiazem HCl (Tiazac) 120 mg PO QAM COUNTS INCLUDE 234 BEDS AT THE [facility] Stop: 07/22/19 01:29 Last Admin: 06/22/19 02:28 Dose: 120 mg Documented by: Hydromorphone HCl (Dilaudid) 0.25 mg IV Q3H PRN PRN Reason: Pain Stop: 07/06/19 04:21 Promethazine HCl 12.5 mg/ (Sodium Chloride) 50.5 mls @ 202 mls/hr IV Q6H PRN PRN Reason: Nausea And Vomiting Stop: 07/22/19 02:57 Diltiazem HCl 125 mg/ Dextrose 125 mls @ 15 mls/hr IV .Q8H20M COUNTS INCLUDE 234 BEDS AT THE [facility]; Protocol Stop: 07/22/19 11:29 Last Titration: 06/23/19 07:19 Dose: 15 mg/hr, 15 mls/hr Documented by: Cefepime HCl 2,000 mg/ Syringe 20 mls @ 5 mls/min IV Q12H [facility]; Protocol Stop: 07/07/19 03:59 Last Admin: 06/23/19 04:17 Dose: 5 mls/min Documented by: Acetaminophen (Ofirmev) 1,000 mg in 100 mls @ 400 mls/hr IV Q8H [facility] Stop: 06/25/19 20:59 Last Admin: 06/23/19 06:05 Dose: Not Given Documented by: Albumin Human (Albumin 25%) 50 mls @ 50 mls/hr IV Q6H [facility] Stop: 06/26/19 05:59 Last Infusion: 06/23/19 07:29 Dose: Infused Documented by: Fentanyl Citrate (Fentanyl Drip) 1,250 mcg in 250 mls @ 0 mls/hr IV .Q0M [facility]; Protocol Stop: 07/07/19 09:14 Midazolam HCl (Versed) 125 mg in 250 mls @ 0 mls/hr IV .Q0M [facility]; Protocol Stop: 07/23/19 09:14 Ioversol (Optiray 320 100ml) 90 ml IV ONCE PRN PRN Reason: Interaction Checking Stop: 06/26/19 23:22 Last Admin: 06/22/19 23:23 Dose: 90 ml Documented by: Metoprolol Succinate (Toprol Xl) 50 mg PO DAILY COUNTS INCLUDE 234 BEDS AT THE [facility] Stop: 07/23/19 03:59 Last Admin: 06/23/19 04:50 Dose: 50 mg Documented by: Miscellaneous Information (Consult) 1 ea N/A UD PRN PRN Reason: Consult Stop: 07/22/19 10:19 Miscellaneous Information (Cefepime Consult Active) 1 ea N/A UD PRN PRN Reason: Consult Stop: 07/22/19 20:19 Montelukast Sodium (Singulair) 10 mg PO QAM [facility] Stop: 07/22/19 08:59 Last Admin: 06/23/19 08:22 Dose: 10 mg Documented by: Nitroglycerin (Nitrostat) 0.4 mg SL UD PRN PRN Reason: Chest Pain Stop: 07/22/19 02:57 Olanzapine (Zyprexa) 2.5 mg IM Q4H PRN PRN Reason: Anxiety/Agitation Stop: 07/23/19 03:16 Polyethylene Glycol (Miralax Powder Packet) 17 gm PO Q6H [facility] Stop: 07/22/19 15:14 Last Admin: 06/23/19 03:32 Dose: 17 gm Documented by: Fluticasone/Salmeterol (Advair Diskus 500/50) 1 puffs INH BID [facility]REW Stop: 07/22/19 08:59 Last Admin: 06/23/19 08:21 Dose: 1 puffs Documented by: Senna/Docusate Sodium (Senokot S) 1 tab PO BID ANDREW Stop: 07/23/19 00:29 Last Admin: 06/23/19 08:22 Dose: 1 tab Documented by: Tramadol HCl (Ultram) 25 mg PO Q8H PRN PRN Reason: Pain Stop: 07/22/19 02:57 Last Admin: 06/22/19 10:53 Dose: 25 mg Documented by: Total Time Total Time Spent Total Time Spent (In Minutes): 60 Total Time Includes: Examination of the Patient, Discharge Planning, Medication Reconciliation, Communication With Other Providers and Other (coordination with family, patient and staff) Discharge Plan Discharge Items Patient Disposition: Transfer Acute [facility] Reason For Visit: afib Discharge Diagnosis: acute hypoxic respiratory failure SBO acute abdomen new liver mass atrial fibrillation with rapid ventricular response Condition on Discharge: Critical Activity: As commented below Activity Comment: per receiving facility Non-emergency contact: Primary Care Provider Call non-emergency contact if: you have any medication questions, your symptoms worsen, your pain is not controlled, your pain is worsening, your pain is unusual for you, your pain is concerning for you and you have a fever Follow-up/Referrals: Anat Bangura DO [Primary Care Provider] - Diet: Regular Addtl Attending Provider Instructions: You are being transferred to [facility] for further care. Please make a one week follow-up appointment to see your primary care physician upon discharge from the hospital. It was a pleasure taking care of you! Please call if you have any questions or problems. You can reach a [facility] hospitalist on duty at [facility] 24 hours a day by calling [phone]. Take care of yourself. Aga Lopez DO [facility] Hospitalist Pending Studies at Discharge: Yes Studies:: Blood cultures, urine cultures Stand-Alone Forms: My [facility] Skilled Items Patient informed of condition?: Yes DNR: No Discharge Level of Care: Other Communicable Disease: No Discharge Prognosis: Deteriorating Lines: Peripheral IV Urinary Catheter: Yes Medications and DC Order Prescriptions: Continued atorvastatin 40 mg Tablet 40 mg PO QAM RF: 0 metoprolol succinate 50 mg Tablet Extended Release 24 Hr 50 mg PO DAILY RF: 0 tramadol 50 mg tablet 100 mg PO Q8H PRN (Reason: Pain) RF: 0 diltiazem HCl 120 mg Capsule,Extended Release 24 Hr 120 mg PO QAM RF: 0 nitroglycerin [Nitrostat] 0.4 mg Tablet, Sublingual 0.4 mg sublingual DIRECTED PRN (Reason: Chest Pain) RF: 0 montelukast 10 mg tablet 10 mg PO QAM RF: 0 albuterol sulfate [Ventolin HFA] 90 mcg/actuation Hfa Aerosol Inhaler 2 puff INHALATION Q4H PRN (Reason: Wheezing) RF: 0 calcium carbonate-vitamin D3 [Calcium 600 + D(3)] 600 mg(1,500mg) -200 unit Tablet 1 tab PO DAILY RF: 0 aspirin 81 mg Tablet,Delayed Release (Dr/Ec) 81 mg PO DAILY RF: 0 fluticasone propion-salmeterol [Advair Diskus] 500-50 mcg/dose Blister With Device 1 inh INHALATION BID RF: 0 fluticasone propionate [Flonase Allergy Relief] 50 mcg/actuation [place],Suspension 2 spray INTRANASAL DAILY RF: 0 cholecalciferol (vitamin D3) [Vitamin D3] 2,000 unit Tablet 2,000 unit PO DAILY RF: 0 Combivent Respimat 20-100 mcg/actuation Mist 1 puff INHALATION QID RF: 0 Discharge Orders: Discharge Order (Routine); Ordered 06/23/19 Ordered By: Aga Lopez Admission Data Admit Date/Time: 06/22/19 01:46 Attending Provider: Aga Lopez Admit Provider: Adonis Soares Primary Care Provider: Anat Bangura Other Providers: Adonis Soares ; Memo Reyes ; Rina Hawkins ; Billy Galloway ; Orion Wang
--- NOTE | 2019-06-23 09:03 | Cardiology Progress Note ---
Date of Service June 23, 2019 Assessment & Plan (1) Atrial fibrillation with RVR: most likely secondary to acute events this is obviously not a primary concern at this point heparin d/c'ed will decrease cardizem gtt to allow permissive tachycardia which is likely compensatory at this point oral metoprolol and cardizem held (2) Severe sepsis: now with ?acute abdomen (3) Liver lesion: GI consulted. surgery consulted for acute [facility] transfer to [facility] for further eval and treatment now (4) CAD (coronary artery disease): no sign of active ischemia metoprolol held pci 12/17 no longer on dual antiplatelet therapy ideally from a cardiac standpoint asa should be continued, will defer my benefit from cardiology consultation during hospitalization Subjective Pt seen and examined, in borderline extremis. Abdominal pain acutely worsened overnight and patient now tachypnic. Somewhat ashen in appearance. States that her abdominal pain has worsened, denies cp, palpitations or dizziness. tele reviewed: atrial fibrillation with variable rates, improved overnight. Review of Systems Review of Systems: All systems reviewed & are unremarkable except as noted in HPI & below Physical Exam Physical Exam: General: Awake, alert and oriented x 3. Moderate respiratory distress. Pale in appearance. HEENT: Normocephalic, atraumatic. Pupils equal, round and reactive to light and accommodation. Extraocular muscles are intact. Anicteric sclera. Moist mucous membranes. Neck: No JVD. No bruit. Cardiovascular: irregularly irregular, unable to appreciate murmur, rub or gallop. Pulmonary: Clear to auscultation bilaterally. No rales, rhonchi, or wheezing. Abdomen: Deferred due to pain. Extremities: No clubbing, cyanosis or edema. +2 pedal pulses bilaterally. Skin: Warm and dry. Results & Data Vital Signs (Past 12 Hours) Vital Signs Temp Pulse Pulse Resp BP BP Pulse Ox 06/23/19 07:45 36.5 C 121 H 22 154/89 H 90 06/23/19 03:50 36.3 C L 107 H 24 130/75 91 06/23/19 00:16 126 H 06/23/19 00:05 120 H 28 H 90 06/23/19 00:00 127 H 06/22/19 23:30 36.8 C 116 H 22 109/61 92 06/22/19 22:10 140 H 26 H 131/84 90 Laboratory Results Laboratory Results - last 24 hr 06/22/19 06/22/19 06/22/19 18:48 18:48 18:49 WBC 12.79 H RBC 4.16 L Hgb 13.4 Hct 39.8 MCV 95.7 MCH 32.2 MCHC 33.7 RDW Std Deviation 55.1 H RDW Coeff of Gillian 15.6 H Plt Count 115 L MPV 12.4 H Immature Gran % (Auto) Neut % (Auto) Lymph % (Auto) [place] % (Auto) Eos % (Auto) Baso % (Auto) Immature Gran # (Auto) Neut # (Auto) Lymph # (Auto) [place] # (Auto) Eos # (Auto) Baso # (Auto) Neutrophils % (Manual) 88.0 Lymphocytes % (Manual) 8.0 Monocytes % (Manual) 2.0 Metamyelocytes % (Man) 2.0 Neutrophils # (Manual) 11.26 H Total Absolute Neuts 11.26 H Lymphocytes # (Manual) 1.02 L Total Abs Lymphocytes 1.02 L Monocytes # (Manual) 0.26 Metamyelocytes # (Man) 0.26 H Toxic Granulation Dohle Bodies 1+ Platelet Estimate Giant Platelets Echinocytes 2+ APTT PTT Ratio ABG pH ABG pCO2 ABG pO2 ABG HCO3 ABG O2 Saturation ABG Base Excess Abhilash Test Barometric Pressure Oxygen Given Sodium 136 Potassium 3.5 Chloride 104 Carbon Dioxide 24 Anion Gap 9.0 BUN 19 H Creatinine 0.82 Est Cr Clr Drug Dosing 43.3 Est GFR ( Amer) 78.3 Est GFR (Non-Af Amer) 67.6 BUN/Creatinine Ratio 22.7 H Glucose 163 H Lactate Calcium 8.6 Magnesium Total Bilirubin 0.8 AST 355 H ALT 428 H Alkaline Phosphatase 54 Total Protein 6.1 L Albumin 2.1 L Globulin 4.0 Albumin/Globulin Ratio 0.5 L Lipase 51 L Random Vancomycin 06/22/19 06/22/19 06/22/19 18:49 22:47 22:47 WBC RBC Hgb Hct MCV MCH MCHC RDW Std Deviation RDW Coeff of Gillian Plt Count MPV Immature Gran % (Auto) Neut % (Auto) Lymph % (Auto) [place] % (Auto) Eos % (Auto) Baso % (Auto) Immature Gran # (Auto) Neut # (Auto) Lymph # (Auto) [place] # (Auto) Eos # (Auto) Baso # (Auto) Neutrophils % (Manual) Lymphocytes % (Manual) Monocytes % (Manual) Metamyelocytes % (Man) Neutrophils # (Manual) Total Absolute Neuts Lymphocytes # (Manual) Total Abs Lymphocytes Monocytes # (Manual) Metamyelocytes # (Man) Toxic Granulation Dohle Bodies Platelet Estimate Giant Platelets Echinocytes APTT PTT Ratio ABG pH ABG pCO2 ABG pO2 ABG HCO3 ABG O2 Saturation ABG Base Excess Abhilash Test Barometric Pressure Oxygen Given Sodium Potassium Chloride Carbon Dioxide Anion Gap BUN Creatinine Est Cr Clr Drug Dosing Est GFR ( Amer) Est GFR (Non-Af Amer) BUN/Creatinine Ratio Glucose Lactate 4.3 H* 4.0 H* Calcium Magnesium Total Bilirubin AST ALT Alkaline Phosphatase Total Protein Albumin Globulin Albumin/Globulin Ratio Lipase Random Vancomycin 6.4 06/23/19 06/23/19 06/23/19 03:11 03:11 03:11 WBC 20.53 H RBC 3.82 L Hgb 12.0 Hct 35.8 L MCV 93.7 MCH 31.4 MCHC 33.5 RDW Std Deviation 54.1 H RDW Coeff of Gillian 15.7 H Plt Count 113 L MPV 12.4 H Immature Gran % (Auto) 4.4 Neut % (Auto) 85.7 Lymph % (Auto) 3.8 [place] % (Auto) 5.9 Eos % (Auto) 0.0 Baso % (Auto) 0.2 Immature Gran # (Auto) 0.90 H Neut # (Auto) 17.60 H Lymph # (Auto) 0.78 L [place] # (Auto) 1.21 H Eos # (Auto) 0.00 Baso # (Auto) 0.04 Neutrophils % (Manual) Lymphocytes % (Manual) Monocytes % (Manual) Metamyelocytes % (Man) Neutrophils # (Manual) Total Absolute Neuts Lymphocytes # (Manual) Total Abs Lymphocytes Monocytes # (Manual) Metamyelocytes # (Man) Toxic Granulation 1+ Dohle Bodies 2+ Platelet Estimate Decreased L Giant Platelets 1+ Echinocytes APTT 129.6 H* PTT Ratio 4.8 ABG pH ABG pCO2 ABG pO2 ABG HCO3 ABG O2 Saturation ABG Base Excess Abhilash Test Barometric Pressure Oxygen Given Sodium 132 L Potassium 3.8 Chloride 102 Carbon Dioxide 23 Anion Gap 7.0 BUN 27 H Creatinine 1.21 H D Est Cr Clr Drug Dosing 29.3 Est GFR ( Amer) 48.9 Est GFR (Non-Af Amer) 42.2 BUN/Creatinine Ratio 22.2 H Glucose 160 H Lactate Calcium 8.3 L Magnesium 2.3 Total Bilirubin 0.9 AST 275 H ALT 355 H Alkaline Phosphatase 49 Total Protein 6.4 Albumin 2.6 L Globulin 3.8 Albumin/Globulin Ratio 0.7 L Lipase Random Vancomycin 06/23/19 06/23/19 06/23/19 03:11 03:11 07:10 WBC RBC Hgb Hct MCV MCH MCHC RDW Std Deviation RDW Coeff of Gillian Plt Count MPV Immature Gran % (Auto) Neut % (Auto) Lymph % (Auto) [place] % (Auto) Eos % (Auto) Baso % (Auto) Immature Gran # (Auto) Neut # (Auto) Lymph # (Auto) [place] # (Auto) Eos # (Auto) Baso # (Auto) Neutrophils % (Manual) Lymphocytes % (Manual) Monocytes % (Manual) Metamyelocytes % (Man) Neutrophils # (Manual) Total Absolute Neuts Lymphocytes # (Manual) Total Abs Lymphocytes Monocytes # (Manual) Metamyelocytes # (Man) Toxic Granulation Dohle Bodies Platelet Estimate Giant Platelets Echinocytes APTT PTT Ratio ABG pH 7.38 ABG pCO2 38 ABG pO2 48 L ABG HCO3 22 ABG O2 Saturation 84.7 L ABG Base Excess -2.9 Abhilash Test POS Barometric Pressure 726.8 Oxygen Given 3 L Sodium Potassium Chloride Carbon Dioxide Anion Gap BUN Creatinine Est Cr Clr Drug Dosing Est GFR ( Amer) Est GFR (Non-Af Amer) BUN/Creatinine Ratio Glucose Lactate 2.8 H* 4.1 H* Calcium Magnesium Total Bilirubin AST ALT Alkaline Phosphatase Total Protein Albumin Globulin Albumin/Globulin Ratio Lipase Random Vancomycin Medications Administered Current Inpatient Medications Albuterol (Duoneb) 3 ml NEB QIDR PRN PRN Reason: shortness of breath or wheezin Stop: 07/23/19 06:59 Last Admin: 06/23/19 06:44 Dose: 3 ml Documented by: Aspirin (Ecotrin Ectab) 81 mg PO DAILY [facility] Stop: 07/22/19 08:59 Last Admin: 06/23/19 08:23 Dose: 81 mg Documented by: Diltiazem HCl (Tiazac) 120 mg PO QAM [facility] Stop: 07/22/19 01:29 Last Admin: 06/22/19 02:28 Dose: 120 mg Documented by: Hydromorphone HCl (Dilaudid) 0.25 mg IV Q3H PRN PRN Reason: Pain Stop: 07/06/19 04:21 Heparin Sodium/Dextrose (Heparin Sodium/Dextrose) 25,000 units in 500 mls @ 16 mls/hr IV .Q24H [facility]; Protocol Stop: 07/22/19 01:44 Last Titration: 06/23/19 07:18 Dose: 16 units/hr, 0.3 mls/hr Documented by: Promethazine HCl 12.5 mg/ (Sodium Chloride) 50.5 mls @ 202 mls/hr IV Q6H PRN PRN Reason: Nausea And Vomiting Stop: 07/22/19 02:57 Diltiazem HCl 125 mg/ Dextrose 125 mls @ 15 mls/hr IV .Q8H20M [facility]; Protocol Stop: 07/22/19 11:29 Last Titration: 06/23/19 07:19 Dose: 15 mg/hr, 15 mls/hr Documented by: Cefepime HCl 2,000 mg/ Syringe 20 mls @ 5 mls/min IV Q12H [facility]; Protocol Stop: 07/07/19 03:59 Last Admin: 06/23/19 04:17 Dose: 5 mls/min Documented by: Acetaminophen (Ofirmev) 1,000 mg in 100 mls @ 400 mls/hr IV Q8H [facility] Stop: 06/25/19 20:59 Last Admin: 06/23/19 06:05 Dose: Not Given Documented by: Albumin Human (Albumin 25%) 50 mls @ 50 mls/hr IV Q6H [facility] Stop: 06/26/19 05:59 Last Infusion: 06/23/19 07:29 Dose: Infused Documented by: Ioversol (Optiray 320 100ml) 90 ml IV ONCE PRN PRN Reason: Interaction Checking Stop: 06/26/19 23:22 Last Admin: 06/22/19 23:23 Dose: 90 ml Documented by: Metoprolol Succinate (Toprol Xl) 50 mg PO DAILY [facility] Stop: 07/23/19 03:59 Last Admin: 06/23/19 04:50 Dose: 50 mg Documented by: Miscellaneous Information (Consult) 1 ea N/A UD PRN PRN Reason: Consult Stop: 07/22/19 10:19 Miscellaneous Information (Cefepime Consult Active) 1 ea N/A UD PRN PRN Reason: Consult Stop: 07/22/19 20:19 Montelukast Sodium (Singulair) 10 mg PO QAM [facility] Stop: 07/22/19 08:59 Last Admin: 06/23/19 08:22 Dose: 10 mg Documented by: Nitroglycerin (Nitrostat) 0.4 mg SL UD PRN PRN Reason: Chest Pain Stop: 07/22/19 02:57 Olanzapine (Zyprexa) 2.5 mg IM Q4H PRN PRN Reason: Anxiety/Agitation Stop: 07/23/19 03:16 Polyethylene Glycol (Miralax Powder Packet) 17 gm PO Q6H [facility] Stop: 07/22/19 15:14 Last Admin: 06/23/19 03:32 Dose: 17 gm Documented by: Fluticasone/Salmeterol (Advair Diskus 500/50) 1 puffs INH BID [facility] Stop: 07/22/19 08:59 Last Admin: 06/23/19 08:21 Dose: 1 puffs Documented by: Senna/Docusate Sodium (Senokot S) 1 tab PO BID [facility]RE[facility] Stop: 07/23/19 00:29 Last Admin: 06/23/19 08:22 Dose: 1 tab Documented by: Tramadol HCl (Ultram) 25 mg PO Q8H PRN PRN Reason: Pain Stop: 07/22/19 02:57 Last Admin: 06/22/19 10:53 Dose: 25 mg Documented by: (1) CAD (coronary artery disease) Coronary Disease-Associated Artery/Lesion type: [place] artery [place] vs. transplanted heart: [place] heart Associated angina: without angina Qualified Code(s): I25.10 - Atherosclerotic heart disease of [place] coronary artery without angina pectoris
[2019-06-23] MEDS ORDERED: fentaNYL DRIP 1,250 MCG/250 ML BAG IV SCH (09:15)
[2019-06-23] MEDS ORDERED: MIDAZOLAM HCL 125 MG/250 ML BAG IV SCH (09:15)
--- NOTE | 2019-06-23 09:35 | Procedure Note ---
Procedure Note Date of Service June 23, 2019 Procedure Date: Noted above Procedure: Endotracheal intubation Pre-procedure Diagnosis: Acute hypoxic respiratory failure, witnessed aspiration during attempted placement Post-procedure Diagnosis: same as above Prior to Procedure: Informed Consent: emergent Attending Staff: Avelina Porter DO The identity of the patient was confirmed and a bedside time out was performed. Description of Procedure: Patient was evaluated and required intubation for impending respiratory failure. The patient was prepared in the usual fashion. A Sparks 2 laryngoscope was used. Significant black gastric contents copiously suction hypopharynx, awake intubation techniques were utilized to prevent loss of anatomic landmarks and intra-abdominal pressure from muscle depolarization. Switch to MAC 3 visualize intermittently the arytenoids during continuous suctioning. I was able to tracheal tube when I witnessed bubbling through the gastric contents. A 7.5 mm inner diameter endotrachial tube was placed endotracheally to 23 cm at the teeth. Chest rise was bilateral. Bilateral breath sounds were heard without air sounds in the abdomen. Mist was noted in the endotracheal tube. End-tidal CO2 measurement was positive. Chest x-ray shows proper endotracheal tube placement. Complications: Aspiration of gastric contents Findings: Not applicable Specimens: Not applicable Estimated blood loss: Zero Coding CPT Codes Resuscitation - Resuscitation: [id number] Endotracheal Intubation, emergency ([id number])
--- NOTE | 2019-06-23 09:40 | XRay Report ---
XR chest 1V portable CLINICAL HISTORY: 79 years-old Female presenting with NGT misplaced, worsening SOB. TECHNIQUE: Portable supine AP view of the chest was obtained. COMPARISON: 06/22/2019. FINDINGS: Endotracheal tube terminates in the midthoracic trachea approximately 3.3 cm from the pippa. Nasogas tric tube descends below the diaphragm. Multiple external leads project over the thorax. Atherosclerosis of the aortic arch. Cardiac silhouette mildly enlarged. Mild pulmonary vascular promi nence in the right lung. Patchy opacity at the right lung base. Trace bilateral pleural effusions. No pneumothorax. Degenerative changes of the thoracic spine. Upper abdomen normal. IMPRESSION: 1. Appropriately positioned tubes. 2. Mild cardiomegaly and mild volume overload. 3. Patchy right basilar infiltrate could represent atelectasis, infection, or aspiration. 4. Trace bilateral pleural effusions. Electronically signed by: Alfonso Graves M.D. 06/23/2019 9:39 AM
[2019-06-23] MEDS ORDERED: SODIUM CHLORIDE 0.9% 10ML FLUSH IV ONE ×2 (09:59)
[2019-06-23] MEDS ORDERED: CALCIUM CHLORIDE 10% 10 ML SYR IV ONE (09:59)
[2019-06-23] MEDS ORDERED: SUCCINYLCHOLINE CHLORIDE 20 MG/ML 10 ML VIAL IV ONE (09:59)
[2019-06-23] MEDS ORDERED: KETAMINE HCL INJ 50 MG/ML 10 ML VIAL IV ONE (09:59)
[2019-06-23] MEDS ORDERED: VECURONIUM BROMIDE 10 MG VIAL IV ONE (09:59)
[2019-06-23] MEDS ORDERED: fentaNYL citrate 100 MCG/2 ML VIAL IV ONE (09:59)
[2019-06-23] MEDS ORDERED: SODIUM CHLORIDE 0.9% INJ 10 ML VIAL IV ONE (09:59)
[2019-06-23] MEDS ORDERED: MIDAZOLAM HCL 5 MG/ML VIAL IV ONE (09:59)
--- NOTE | 2019-06-23 10:42 | Infectious Disease Consult ---
Date of Consultation June 23, 2019 History of Present Illness Attending Physician: Aga Lopez DO pt has been transferred by helicopter to [facility] [place] care prior to ID eval/consultation. Allergies Allergy/AdvReac Type Severity Reaction Status Date / Time No Known Allergies Allergy Verified 06/21/19 22:20 Home Medications Home Medications Medication Instructions Recorded Confirmed Type albuterol sulfate [Ventolin HFA] 2 puff INHALATION Q4H PRN 06/21/19 06/21/19 History aspirin 81 mg PO DAILY 06/21/19 06/21/19 History atorvastatin 40 mg PO QAM 06/21/19 06/21/19 History calcium carbonate-vitamin D3 1 tab PO DAILY 06/21/19 06/21/19 History [Calcium 600 + D(3)] cholecalciferol (vitamin D3) 2,000 unit PO DAILY 06/21/19 06/21/19 History [Vitamin D3] diltiazem HCl 120 mg PO QAM 06/21/19 06/21/19 History fluticasone propion-salmeterol 1 inh INHALATION BID 06/21/19 06/21/19 History [Advair Diskus] fluticasone propionate [Flonase 2 spray INTRANASAL DAILY 06/21/19 06/21/19 History Allergy Relief] ipratropium-albuterol [Combivent 1 puff INHALATION QID 06/21/19 06/21/19 History Respimat] metoprolol succinate 50 mg PO DAILY 06/21/19 06/21/19 History montelukast 10 mg PO QAM 06/21/19 06/21/19 History nitroglycerin [Nitrostat] 0.4 mg SUBLINGUAL DIRECTED PRN 06/21/19 06/21/19 History tramadol 100 mg PO Q8H PRN 06/21/19 06/21/19 History Patient History Medical History (Updated 06/23/19 @ 09:24 by Aga Lopez DO) Asthma CAD (coronary artery disease) Chest pain Liver lesion NSTEMI (non-ST elevated myocardial infarction) Surgical History (Updated 06/23/19 @ 08:50 by Orion Wang MD) Hx of heart artery stent S/P laparoscopic assisted vaginal hysterectomy (LAVH) Family History Other Family history non-contributory Social History Preferred Language: Swedish Communication Ability: Effective Beliefs That Will Affect Care: None Current Living Situation: Alone Feels Safe at Home: Yes Safety Concerns: Feels Safe At This Time Smoking Status: Never smoker Hx Alcohol Use: Yes Alcohol type: wine Hx Substance Use: No Results & Data Vital Signs (Past 12 Hours) Vital Signs Temp Pulse Pulse Resp BP BP Pulse Ox 06/23/19 07:45 36.5 C 121 H 22 154/89 H 90 06/23/19 03:50 36.3 C L 107 H 24 130/75 91 06/23/19 00:16 126 H 06/23/19 00:05 120 H 28 H 90 06/23/19 00:00 127 H 06/22/19 23:30 36.8 C 116 H 22 109/61 92 PG Care Time/CCT Total # of Minutes Spent Total Time Spent with Patient: Total time spent is greater than 50% in coordination of care (as documented) at patient's floor/unit and/or counseling patient:
== END 2019-06-23 10:00 | disposition short-term general hospital (02) | DRG 871 ==
LOC: ED 20:42 → 2S 06-22 02:29